=== PATIENT | male | born 1930 | race Caucasian/White ===

== ENCOUNTER 2018-05-19 19:30 | Inpatient (IN) | payer OTHER ==
--- NOTE | 2018-05-19 21:17 | PDOC ---
History of Present Illness <Kathya Gillespie - Last Filed: 05/19/18 21:59> - General History Source: Patient Exam Limitations: No Limitations - History of Present Illness Initial Comments: 05/20/18 07:20 Mr. Mario is a 88 yo M with Pmhx of diabetes mellitus and HTN who presented to the ED s/p fall 3 days ago. His first fall was 3 days ago down "18 stairs" with loss of consciousness, head trauma, and landing on his sacral region. He is unsure of how long he was unconscious for but he subsequently fell later in the day in the bathroom while shaving without loss of consciousness or head trauma, landing on his sacral region. The following day he fell in the bathroom again and was unable to get up until he was discovered by his grandson today. Per the grandson, he states his grandfather was off baseline and more forgetful. He does not recall the events leading to each of the falls. He states he has pain in posterior portion of his head that is dull, non radiating, constant, 8/10, without aggravating or relieving factors. In addition, he complains of pain in the thoracic region T7 region and lower lumbosacral region. Pmhx: DM and HTN Shx: bilateral knee replacement Meds: Does not know medication list. Endorses aspirin 81 mg Allergies: None Social hx: Denies smoking, alcohol intake, and substance abuse. <Serafin Beth - Last Filed: 05/20/18 07:33> - General Chief Complaint: Injury Stated Complaint: S/P FALL Time Seen by Provider: 05/19/18 21:16 Past History <Kathya Gillespie - Last Filed: 05/19/18 21:59> - Suicide/Smoking/Psychosocial Hx Smoking History: Never smoked Have you smoked in the past 12 months: No Information on smoking cessation initiated: No Hx Alcohol Use: No Drug/Substance Use Hx: No <Serafin Beth - Last Filed: 05/20/18 07:33> - Past Medical History Allergies/Adverse Reactions: Allergies Allergy/AdvReac Type Severity Reaction Status Date / Time No Known Allergies Allergy Verified 05/20/18 04:52 Home Medications: Ambulatory Orders NK [No Known Home Medication] 05/20/18 Review of Systems - Review of Systems Able to Perform ROS?: Yes Is the patient limited Welsh proficient: No Constitutional: No: Fever, Night Sweats HEENTM: No: Blurred Vision, Recent change in vision, Ear Pain, Nose Pain, Throat Pain Respiratory: No: Cough, Shortness of Breath Cardiac (ROS): No: Chest Pain, Palpitations ABD/GI: No: Constipated, Diarrhea, Nausea, Rectal Bleeding, Vomiting, Tarry Stools : No: Dysuria, Hematuria Musculoskeletal: Yes: Back Pain Neurological: Yes: Headache. No: Numbness, Paresthesia <Serafin Beth - Last Filed: 05/20/18 07:33> *Physical Exam - Vital Signs Last Vital Signs Temp Pulse Resp BP Pulse Ox 98.2 F 94 H 18 141/83 97 05/19/18 19:30 05/19/18 19:30 05/19/18 19:30 05/19/18 19:30 05/19/18 19:30 <Kathya Gillespie - Last Filed: 05/19/18 21:59> - Vital Signs Last Vital Signs Temp Pulse Resp BP Pulse Ox 98.2 F 94 H 18 141/83 97 05/19/18 19:30 05/19/18 19:30 05/19/18 19:30 05/19/18 19:30 05/19/18 19:30 - Physical Exam General Appearance: Yes: Nourished HEENT: positive: EOMI, LINO, Normal Voice Neck: negative: Tender Respiratory/Chest: positive: Lungs Clear, Normal Breath Sounds Cardiovascular: positive: Regular Rhythm, Regular Rate, S1, S2. negative: Systolic Murmur Gastrointestinal/Abdominal: positive: Normal Bowel Sounds. negative: Tender Musculoskeletal: positive: Normal Inspection. 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 Mario is a 88 yo M with a pmhx of HTN and DM who presented s/p mechanical fall down stairs and falling in bathroom with subsequent head trauma and loss of consciousness. Initial vitals: Initial Vital Signs Temp Pulse Resp BP Pulse Ox 98.2 F 94 H 18 141/83 97 05/19/18 19:30 05/19/18 19:30 05/19/18 19:30 05/19/18 19:30 05/19/18 19:30 Work up: Labs: CBC, trops, CMP, PT/INR, UA, type and screen, EKG, and urine culture Imaging: Chest ct without contrast, thoracic CT without contrast, and head ct without contrast 500 mL of NS given since patient was dry and down for 2 days. Laboratory Results - last 24 hr 05/19/18 05/19/18 05/19/18 23:00 23:00 23:00 WBC 14.9 H RBC 4.82 Hgb 14.4 Hct 44.0 MCV 91.4 MCH 29.9 MCHC 32.7 RDW 13.7 Plt Count 194 MPV 10.3 Absolute Neuts (auto) 12.3 Neutrophils % 82.8 Lymphocytes % 7.9 L Monocytes % 8.5 Eosinophils % 0.2 Basophils % 0.6 Nucleated RBC % 0 PT with INR 11.90 INR 1.05 Sodium Cancelled Potassium Cancelled Chloride Cancelled Carbon Dioxide Cancelled Anion Gap Cancelled BUN Cancelled Creatinine Cancelled Creat Clearance w eGFR Cancelled Random Glucose Cancelled Calcium Cancelled Total Bilirubin Cancelled AST Cancelled ALT Cancelled Alkaline Phosphatase Cancelled Creatine Kinase Cancelled Creatine Kinase Index CK-MB (CK-2) Troponin I Cancelled Total Protein Cancelled Albumin Cancelled Urine Color Urine Appearance Urine pH Ur Specific [place] Urine Protein Urine Glucose (UA) Urine Ketones Urine Blood Urine Nitrite Urine Bilirubin Urine Urobilinogen Ur Leukocyte Esterase Urine WBC (Auto) Urine RBC (Auto) Urine Mucus 05/20/18 05/20/18 05/20/18 00:26 00:26 03:43 WBC RBC Hgb Hct MCV MCH MCHC RDW Plt Count MPV Absolute Neuts (auto) Neutrophils % Lymphocytes % Monocytes % Eosinophils % Basophils % Nucleated RBC % PT with INR INR Sodium 140 Potassium 5.0 Chloride 104 Carbon Dioxide 24 Anion Gap 12 BUN 41 H Creatinine 1.5 H Creat Clearance w eGFR 44.27 Random Glucose 296 H Calcium 9.0 Total Bilirubin 1.0 AST 67 H ALT 39 Alkaline Phosphatase 84 Creatine Kinase 1590 H Cancelled Creatine Kinase Index 0.5 CK-MB (CK-2) 8.86 H Troponin I 0.06 H Cancelled Total Protein 6.8 Albumin 3.3 L Urine Color Yellow Urine Appearance Clear Urine pH 5.0 Ur Specific [place] 1.018 Urine Protein 2+ H Urine Glucose (UA) 3+ H Urine Ketones 1+ H Urine Blood 1+ H Urine Nitrite Negative Urine Bilirubin Negative Urine Urobilinogen Negative Ur Leukocyte Esterase Negative Urine WBC (Auto) 1 Urine RBC (Auto) 1 Urine Mucus Rare Disposition: Given the increase in creatinine kinase and developing MYLES with unknown identifiable cause for the syncopized event, he has been admitted for further evaluation. 05/20/18 07:27 05/20/18 07:30 05/20/18 07:32 <Serafin Beth - Last Filed: 05/20/18 07:33> *DC/Admit/Observation/Transfer <Kathya Gillespie - Last Filed: 05/19/18 21:59> - Discharge Dispostion Decision to Admit order: Yes <Serafin Beth - Last Filed: 05/20/18 07:33> Diagnosis at time of Disposition: Rhabdomyolysis Qualifiers: Rhabdomyolysis type: traumatic Encounter type: initial encounter Qualified Code (s): T79.6XXA - Traumatic ischemia of muscle, initial encounter Fall Qualifiers: Encounter type: initial encounter Qualified Code(s): W19.XXXA - Unspecified fall, initial encounter Syncope Qualifiers: Syncope type: unspecified Qualified Code(s): R55 - Syncope and collapse - Discharge Dispostion Condition at time of disposition: Stable
--- NOTE | 2018-05-19 22:00 | PDOC ---
Attending Attestation - Medical Decision Making 05/20/18 01:33 Documentation prepared by Mariajose Phillips, acting as medical and scientific illustrator for Kathya Gillespie MD. 05/20/18 01:33 EXAM: HEAD CT WITHOUT CONTRAST HISTORY: Head trauma COMPARISON: None. FINDINGS: Involutional changes with moderate ventriculomegaly. Chronic microvascular changes in the cerebral white matter. No hemorrhage. Osseous structures are intact. Individualized dose optimization techniques were used for this CT. THIS DOCUMENT HAS BEEN ELECTRONICALLY SIGNED Jaden Pascal MD 05/20/2018 01:22 EST EXAM: CT thoracic spine without contrast IMAGES:[id number] DATE OF EXAM: 2018-05-20 00:45:53 REASON FOR EXAM: Trauma with loss of consciousness COMPARISON: None Findings: The thoracic spine demonstrates normal alignment. Osteopenia and degenerative changes noted. Vertebral hemangioma at T7. No acute thoracic spine fracture or dislocation. Nonspecific elevation of right hemidiaphragm. Multiple calcified pleural plaques which can be seen with prior asbestos exposure. Mild nonspecific nodular left adrenal thickening. Individualized dose optimization techniques were used for this CT. THIS DOCUMENT HAS BEEN ELECTRONICALLY SIGNED Jaden Lorenz MD 05/20/2018 01:14 EST <Mariajose Phillips - Last Filed: 05/20/18 01:33> - Resident Resident Name: Serafin Beth - ED Attending Attestation I have performed the following: I have examined & evaluated the patient, The case was reviewed & discussed with the resident, I agree w/resident's findings & plan, Exceptions are as noted - HPI HPI: 05/19/18 21:59 88-year-old male brought in by ambulance after being found by a neighbor. Patient reports falling down 18 steps 3 days prior. He doesn't recall why he fell. States he was unable to ambulate due to back pain. PCP is Dr. Eduardo Bearden - Physicial Exam PE: 05/19/18 22:00 Well-nourished, well-developed 88-year-old male with complaint of thoracic and lumbar back pain after falling. He reports LOC Head normocephalic, atraumatic, no scalp scalp laceration, no hematomas eyes asim eomi neck no cervical vertebral tenderness lungs cta b/l -when palpated his spine he had some thoracic and lumbar tenderness and protuberant no rebound, no guarding ext no deformities, able to lift legs off the gurney w no problem, no hip pain skin warm and dry neuro axox3,moving all extremities, no facial droop,no slurred speech - Medical Decision Making 05/20/18 02:24 Patient will be admitted for syncope, trauma, rhabdo First troponin 0.06 <Kathya Gillespie - Last Filed: 05/20/18 02:25> Heart Score/ECG Review - ECG Impressions Comment:: 05/20/18 00:36 Sinus tachycardia with premature atrial complexes with vent rate of 108 bpm, NC interval 152 ms, QRS duration of 128 ms, QT/QTc of 376/503 ms, and P-R-T axes of (65)(-53)(32) Right bundle branch block Left anterior fascicular block Bifascicular block <Mariajose Phillips - Last Filed: 05/20/18 01:33>
[2018-05-19] MEDS ORDERED: SODIUM CHLORIDE 500 ML IV STA (22:06)
[2018-05-19 23:06] LABS: BASO % 0.6 % (0-2.0); EOS % 0.2 % (0-4.5); HEMOGLOBIN 14.4 GM/dL (11.7-16.9); LYMPH % 7.9 % (8-40); MCH 29.9 pg (25.7-33.7); MCHC 32.7 g/dl (32.0-35.9); MEAN CELL VOLUME 91.4 fl (80-96); MEAN PLT VOLUME 10.3 fl (7.5-11.1); MONO % 8.5 % (3.8-10.2); NEUT % 82.8 % (42.8-82.8); PLATELET COUNT 194 K/MM3 (134-434); RBC 4.82 M/mm3 (4.00-5.60); RDW 13.7 % (11.9-15.9); WHITE BLOOD COUNT 14.9 K/mm3 (4.0-10.0)
[2018-05-19 23:17] LABS: INR 1.05 (0.82-1.09); PROTHROMBIN TIME (PATIENT) 11.9 SEC (9.7-13.0)
[2018-05-20 01:01] LABS: ALBUMIN 3.3 g/dl (3.4-5.0); ANION GAP 12 (8-16); BLOOD UREA NITROGEN 41 mg/dL (7-18); CHLORIDE 104 mmol/L (98-107); CO2 24 mmol/L (21-32); CREATININE 1.5 mg/dL (0.7-1.3); GLUCOSE,RANDOM 296 mg/dL (74-106); SGPT/ALT 39 U/L (12-78); SODIUM 140 mmol/L (136-145); TOT PROT 6.8 g/dl (6.4-8.2)
[2018-05-20 01:13] LABS: ALK PHOS 84 U/L (45-117)
[2018-05-20 01:15] LABS: SGOT/AST 67 U/L (15-37)
[2018-05-20] MEDS ORDERED: SODIUM CHLORIDE 500 ML IV STA (02:15)
--- NOTE | 2018-05-20 02:48 | HP ---
CHIEF COMPLAINT: Syncopal Episodes, Unwitnessed Falls, Head Injury PCP: Dr Eduardo Bearden HISTORY OF PRESENT ILLNESS: This is a 88 y/o man with no significant past medical history. Who was BIBA to the ED for multiple syncopal episodes, s/p fall, head injury. patient was found in the floor by a neighbor. Patient reports becoming dizzy and falling, hitting the back of his head when he attempted to go the bathroom at home. He reports having 2 other episodes with LOC. Patient denies fever, chills, cough, SOB, CP, palpitations, AP, N/V/D, constipation, dysuria. ER course was notable for: (1) (2) (3) Recent Travel: None PAST MEDICAL HISTORY: Denies PAST SURGICAL HISTORY: B/L knee replacement Social History: Smoking: Never Alcohol: None Drugs: None Lives alone, Family History: Non-contributory Allergies No Known Allergies Allergy (Verified 05/19/18 20:27) HOME MEDICATIONS: REVIEW OF SYSTEMS CONSTITUTIONAL: Absent: fever, chills, diaphoresis, generalized weakness, malaise, loss of appetite, weight change HEENT: Absent: rhinorrhea, nasal congestion, throat pain, throat swelling, difficulty swallowing, mouth swelling, ear pain, eye pain, visual changes CARDIOVASCULAR: syncope Absent: chest pain, palpitations, irregular heart rate, lightheadedness, peripheral edema RESPIRATORY: Absent: cough, shortness of breath, dyspnea with exertion, orthopnea, wheezing, stridor, hemoptysis GASTROINTESTINAL: Absent: abdominal pain, abdominal distension, nausea, vomiting, diarrhea, constipation, melena, hematochezia GENITOURINARY: Absent: dysuria, frequency, urgency, hesitancy, hematuria, flank pain, genital pain MUSCULOSKELETAL: Absent: myalgia, arthralgia, joint swelling, back pain, neck pain SKIN: Absent: rash, itching, pallor HEMATOLOGIC/IMMUNOLOGIC: Absent: easy bleeding, easy bruising, lymphadenopathy, frequent infections ENDOCRINE: Absent: unexplained weight gain, unexplained weight loss, heat intolerance, cold intolerance NEUROLOGIC: dizziness, unsteady gait, Absent: headache, focal weakness or paresthesias, seizure, mental status changes , bladder or bowel incontinence PSYCHIATRIC: Absent: anxiety, depression, suicidal or homicidal ideation, hallucinations. PHYSICAL EXAMINATION Vital Signs - 24 hr 05/19/18 19:30 Temperature 98.2 F Pulse Rate 94 H Respiratory 18 Rate Blood Pressure 141/83 O2 Sat by Pulse 97 Oximetry (%) GENERAL: Awake, alert, and oriented x2, in no acute distress. HEAD: Normal, with hematoma to mid occiput. EYES: Pupils equal, round and reactive to light, extraocular movements intact, sclera anicteric, conjunctiva clear. No lid lag. EARS, NOSE, THROAT: Ears normal, nares patent, oropharynx clear without exudates. Moist mucous membranes. NECK: Normal range of motion, supple without lymphadenopathy, JVD, or masses. LUNGS: Breath sounds equal, clear to auscultation bilaterally. No wheezes, and no crackles. No accessory muscle use. HEART: Irregular rate and rhythm, normal S1 and S2 without murmur, rub or gallop. ABDOMEN: Soft, nontender, not distended, normoactive bowel sounds, no guarding, no rebound, no masses. No hepatomegaly or splenomegaly. MUSCULOSKELETAL: Normal range of motion at all joints. No bony deformities or tenderness. No CVA tenderness. UPPER EXTREMITIES: 2+ pulses, warm, well-perfused. No cyanosis. No clubbing. No peripheral edema. LOWER EXTREMITIES: 2+ pulses, warm, well-perfused. No calf tenderness. +2 pitting L>R peripheral edema. NEUROLOGICAL: Cranial nerves II-XII intact. Normal speech. Gait not observed. PSYCHIATRIC: Cooperative. Good eye contact. Appropriate mood and affect. SKIN: Warm, dry, normal turgor, no rashes or lesions noted, normal capillary refill. Laboratory Results - last 24 hr 05/19/18 05/19/18 05/19/18 23:00 23:00 23:00 WBC 14.9 H RBC 4.82 Hgb 14.4 Hct 44.0 MCV 91.4 MCH 29.9 MCHC 32.7 RDW 13.7 Plt Count 194 MPV 10.3 Absolute Neuts (auto) 12.3 Neutrophils % 82.8 Lymphocytes % 7.9 L Monocytes % 8.5 Eosinophils % 0.2 Basophils % 0.6 Nucleated RBC % 0 PT with INR 11.90 INR 1.05 Sodium Cancelled Potassium Cancelled Chloride Cancelled Carbon Dioxide Cancelled Anion Gap Cancelled BUN Cancelled Creatinine Cancelled Creat Clearance w eGFR Cancelled Random Glucose Cancelled Calcium Cancelled Total Bilirubin Cancelled AST Cancelled ALT Cancelled Alkaline Phosphatase Cancelled Creatine Kinase Cancelled Creatine Kinase Index CK-MB (CK-2) Troponin I Cancelled Total Protein Cancelled Albumin Cancelled 05/20/18 05/20/18 00:26 00:26 WBC RBC Hgb Hct MCV MCH MCHC RDW Plt Count MPV Absolute Neuts (auto) Neutrophils % Lymphocytes % Monocytes % Eosinophils % Basophils % Nucleated RBC % PT with INR INR Sodium 140 Potassium 5.0 Chloride 104 Carbon Dioxide 24 Anion Gap 12 BUN 41 H Creatinine 1.5 H Creat Clearance w eGFR 44.27 Random Glucose 296 H Calcium 9.0 Total Bilirubin 1.0 AST 67 H ALT 39 Alkaline Phosphatase 84 Creatine Kinase 1590 H Cancelled Creatine Kinase Index 0.5 CK-MB (CK-2) 8.86 H Troponin I 0.06 H Cancelled Total Protein 6.8 Albumin 3.3 L Radiology Studies: 05/20/18 01:33 EXAM: HEAD CT WITHOUT CONTRAST HISTORY: Head trauma COMPARISON: None. FINDINGS: Involutional changes with moderate ventriculomegaly. Chronic microvascular changes in the cerebral white matter. No hemorrhage. Osseous structures are intact. Individualized dose optimization techniques were used for this CT. THIS DOCUMENT HAS BEEN ELECTRONICALLY SIGNED Jaden Pascal MD 05/20/2018 01:22 EST EXAM: CT thoracic spine without contrast IMAGES:[id number] DATE OF EXAM: 2018-05-20 00:45:53 REASON FOR EXAM: Trauma with loss of consciousness COMPARISON: None Findings: The thoracic spine demonstrates normal alignment. Osteopenia and degenerative changes noted. Vertebral hemangioma at T7. No acute thoracic spine fracture or dislocation. Nonspecific elevation of right hemidiaphragm. Multiple calcified pleural plaques which can be seen with prior asbestos exposure. Mild nonspecific nodular left adrenal thickening. Individualized dose optimization techniques were used for this CT. THIS DOCUMENT HAS BEEN ELECTRONICALLY SIGNED Jaden Lorenz MD 05/20/2018 01:14 EST ASSESSMENT/PLAN: 88 y/o man with unknown medical history. Admitted to Telemetry for Syncope, Rhabdomyoloysis, Intractable Back Pain. for further evaluation of their emergent condition. Problem List - Problem (1) Syncope Assessment/Plan: - Likely secondary to arrhythmia vs tumor - Cardiac monitoring - Head CT- no ICH, mass or lesion - Serial Enzymes - Appreciate Cardiology consult - Appreciate Neurology consult - Echo - Carotid duplex - Monitor CBC, BMP - Fall Precautions Code(s): R55 - SYNCOPE AND COLLAPSE Qualifiers: Syncope type: unspecified Qualified Code(s): R55 - Syncope and collapse (2) Fall Assessment/Plan: - unwitnessed at home - Head CT- reviewed - TSP CT- reviewed - Will need PT for gait strengthening - Possible STR or SNF - Appreciate Case Management and social work input- lives alone, would benefit from [employer]CCUPATIONAL [employer] - Fall Precautions - Monitor vitals - Monitor CBC, BMP Code(s): W19.XXXA - UNSPECIFIED FALL, INITIAL ENCOUNTER Qualifiers: Encounter type: initial encounter Qualified Code(s): W19.XXXA - Unspecified fall, initial encounter (3) Rhabdomyolysis Assessment/Plan: - Likely secondary to fall - Continue cardiac monitoring - Serial enzymes - NS bolus given in ED - Continue IVF- monitor for fluid overload - Appreciate Cardiology consult Code(s): M62.82 - RHABDOMYOLYSIS Qualifiers: Rhabdomyolysis type: traumatic Encounter type: initial encounter Qualified Code(s): T79.6XXA - Traumatic ischemia of muscle, initial encounter (4) DVT prophylaxis Assessment/Plan: - OOB - SCDs - Will defer AC until seen by Neuro possible repeat CT or Brain [place]- concern for ICH Code(s): [id number] - Visit type - Emergency Visit Emergency Visit: Yes ED Registration Date: 05/19/18 Care time: The patient presented to the Emergency Department on the above date and was hospitalized for further evaluation of their emergent condition. - New Patient This patient is new to me today: Yes Date on this admission: 05/20/18 - Critical Care Critical Care patient: No Hospitalist Screening - Colonoscopy Questionnaire Colonoscopy Questionnaire: Colonoscopy Questionnaire - Patient: 50 - 75 years old and never had a screening colonoscopy: Unknown History of colon or rectal polyps, or CA: Unknown History of IBD, Crohn's disease or UC: Unknown History of abdominal radiation therapy as a child: Unknown - Relative: 1 with colon or rectal CA, or polyps at age 60 or younger: Unknown Colon or rectal CA diagnosed at age 45 or younger: Unknown Multiple relatives with colon or rectal CA: Unknown - Outcome: Screening Result: Negative Screen
[2018-05-20] MEDS: SODIUM CHLORIDE 1,000 ML IV SCH (03:47)
[2018-05-20 03:53] LABS: URINE APPEARANCE CLEAR; URINE BILIRUBIN NEGATIVE (<2.0 mg/dL); URINE COLOR YELLOW; URINE GLUCOSE (UA) 3+ (NEGATIVE); URINE KETONE 1+ (NEGATIVE); URINE LEUK ESTERASE NEGATIVE (NEGATIVE); URINE NITRITE NEGATIVE (NEGATIVE); URINE UROBILINOGEN NEGATIVE mg/dL (0.2-1.0)
[2018-05-20 04:18] LABS: URINE PROTEIN 2+ (NEGATIVE)
[2018-05-20 04:19] LABS: URINE MUCUS RARE
--- NOTE | 2018-05-20 10:29 | CON.CARD ---
Consult Consult Specialty:: Cardiology Referred by:: Dr. Andrew Ye (patient sees Dr. Eduardo Bearden) Reason for Consultation:: Cardiac evaluation - History of Present Illness Chief Complaint: Post fall, syncope History of Present Illness: Patient is an 88 year old male with underlying history of DM and HTN who presents to ED after a fall with loss of consciousness. He reports landing on his sacral area 3 days ago and also hitting his head. He is unsure how long he was unconscious. He appears to have lost consciousness again while shaving in the bathroom and fell onto the tile hitting his head. He is now admitted for further evaluation. He denies chest pain, shortness of breath or palpitations. He denies paroxysmal nocturnal dyspnea or orhthopnea. He denies nausea, vomiting , diarrhea or abdominal pain. He complains of pain in the sacral area and intermittent headaches, but not too bothersome. - History Source History Provided By: Patient, Medical Record Limitations to Obtaining History: Clinical Condition - Past Medical History Cardio/Vascular: Yes: HTN Endocrine: Yes: Diabetes Mellitus - Past Surgical History Past Surgical History: Yes: Joint Replacement - Alcohol/Substance Use Hx Alcohol Use: Yes (previously) History of Substance Use: reports: None - Smoking History Smoking history: Former smoker Have you smoked in the past 12 months: No Home Medications - Allergies Allergies/Adverse Reactions: Allergies Allergy/AdvReac Type Severity Reaction Status Date / Time No Known Allergies Allergy Verified 05/20/18 04:52 - Home Medications Home Medications: Ambulatory Orders NK [No Known Home Medication] 05/20/18 Review of Systems - Review of Systems Constitutional: denies: Chills, Fever Cardiovascular: denies: Chest Pain, Palpitations, Shortness of Breath Respiratory: denies: Cough, Hemoptysis, Orthopnea, PND, SOB, SOB on Exertion Gastrointestinal: denies: Abdominal Pain, Constipation, Diarrhea, Melena, Nausea , Rectal Bleeding, Vomiting Genitourinary: denies: Dysuria, Hematuria Musculoskeletal: denies: Joint Pain Neurological: reports: Headache, Syncope, Unsteady Gait. denies: Dizziness, Numbness, Seizure, Weakness Vital Signs: Vital Signs Temperature 97.7 F 05/20/18 03:44 Pulse Rate 96 H 05/20/18 07:07 Respiratory Rate 18 05/20/18 07:07 Blood Pressure 138/92 05/20/18 07:07 O2 Sat by Pulse Oximetry (%) 97 05/20/18 07:58 Eyes: Yes: PERRL HENT: Yes: Atraumatic Neck: Yes: Supple Respiratory: Yes: CTA Bilaterally Gastrointestinal: Yes: Normal Bowel Sounds, Soft. No: Tenderness Cardiovascular: Yes: Regular Rate and Rhythm JVD: No Carotid Bruit: No PMI: Non-Displaced Heart Sounds: Yes: S1, S2. No: Gallop Edema: No - Other Data Labs, Other Data: CBC, BMP 05/19/18 23:00 05/20/18 00:26 INR, PTT INR 1.05 (0.82-1.09) 05/19/18 23:00 Troponin, BNP 05/19/18 05/20/18 05/20/18 23:00 00:26 00:26 Troponin I Cancelled 0.06 H Cancelled 05/20/18 06:25 Troponin I 0.04 D Problem List - Problems (1) HTN (hypertension) Code(s): I10 - ESSENTIAL (PRIMARY) HYPERTENSION Qualifiers: Hypertension type: essential hypertension Qualified Code(s): I10 - Essential (primary) hypertension (2) Diabetes mellitus Code(s): E11.9 - TYPE 2 DIABETES MELLITUS WITHOUT COMPLICATIONS (3) Fall Code(s): W19.XXXA - UNSPECIFIED FALL, INITIAL ENCOUNTER Qualifiers: Encounter type: initial encounter Qualified Code(s): W19.XXXA - Unspecified fall, initial encounter (4) Syncope Code(s): R55 - SYNCOPE AND COLLAPSE Qualifiers: Syncope type: unspecified Qualified Code(s): R55 - Syncope and collapse Assessment/Plan 1. Post mechanical fall, no visible injuries, but probable syncope, etiology to be determined 2. HTN 3. DM 4. Organic brain/dementia PLAN: 1. Transthoracic echocardiography to assess LV/RV and valvular function 2. CT chest and thoracic spine noted with interstitial lung disease 3. Carotid Doppler if not done 4. Currently not on any medications. Follow vitals and consider therapy such as ACEI or ARB if tolerated 5. Fall precaution Further plans are to follow Gurvinder Adair MD
--- NOTE | 2018-05-20 12:01 | EKG ---
Test Reason : Blood Pressure : / mmHG Vent. Rate : 108 BPM Atrial Rate : 108 BPM P-R Int : 152 ms QRS Dur : 128 ms QT Int : 376 ms P-R-T Axes : 065 -52 032 degrees QTc Int : 503 ms SINUS TACHYCARDIA WITH PREMATURE ATRIAL COMPLEXES RIGHT BUNDLE BRANCH BLOCK LEFT ANTERIOR FASCICULAR BLOCK BIFASCICULAR BLOCK INFERIOR INFARCT , AGE UNDETERMINED ABNORMAL ECG Confirmed by MD RODO, BIJU ([id number]) on 05/20/2018 12:00:55 PM Referred By: Confirmed By:BIJU KOEHLER MD
--- NOTE | 2018-05-20 17:09 | CON.NEURO ---
Consult Consult Specialty:: Neurology Referred by:: Dr. Haque Reason for Consultation:: Syncope - History of Present Illness Chief Complaint: Syncope History of Present Illness: Patient reports that he was going downstairs to go to the bathroom and while on the way felt dizzy, as if he were going schmidt, and then fell on his buttocks, and then fell backwards, hitting his head. He thinks that he may have briefly passed out after that, but he isn't sure. He denies convulsiions, tongue biting , or incontinence and reported to me that he hadn't and other events since he was young and in the service though other providers documented another syncopal event. He had no focal deficits. - History Source History Provided By: Patient, Medical Record - Past Medical History Cardio/Vascular: Yes: HTN Endocrine: Yes: Diabetes Mellitus - Past Surgical History Past Surgical History: Yes: Joint Replacement - Alcohol/Substance Use Hx Alcohol Use: Yes (previously) History of Substance Use: reports: None - Smoking History Smoking history: Former smoker Have you smoked in the past 12 months: No Home Medications - Allergies Allergies/Adverse Reactions: Allergies Allergy/AdvReac Type Severity Reaction Status Date / Time No Known Allergies Allergy Verified 05/20/18 04:52 - Home Medications Home Medications: Ambulatory Orders NK [No Known Home Medication] 05/20/18 Physical Exam-Neuro Vital Signs: Vital Signs Temperature 98.1 F 05/20/18 15:01 Pulse Rate 92 H 05/20/18 15:01 Respiratory Rate 18 05/20/18 15:01 Blood Pressure 149/84 05/20/18 15:01 O2 Sat by Pulse Oximetry (%) 98 05/20/18 15:01 Constitutional: Yes: Calm Labs: CBC, BMP 05/19/18 23:00 05/20/18 00:26 INR, PTT INR 1.05 (0.82-1.09) 05/19/18 23:00 - Neuro Exam Level Of Consciousness: Yes: Alert, Oriented to Person, Oriented to Place Cranial Nerves II-XII Intact: Yes DTR's: 2+ Left Bicep, 2+ Right Bicep, 2+ Left Tricep, 2+ Right Tricep, 2+ Left Brachioradialis, 2+ Right Brachioradialis, 2+ Left Achilles, 2+ Right Achilles Response to light touch: Normal Motor Strength: 5/5: Left Arm, Right Arm, Left Leg, Right Leg Gait: Deferred Imaging - Results Cat Scan: Report Reviewed, Image Reviewed (white matter ischemic changes) Problem List - Problems (1) DVT prophylaxis Code(s): [id number] - (2) Fall Code(s): W19.XXXA - UNSPECIFIED FALL, INITIAL ENCOUNTER Qualifiers: Encounter type: initial encounter Qualified Code(s): W19.XXXA - Unspecified fall, initial encounter (3) HTN (hypertension) Code(s): I10 - ESSENTIAL (PRIMARY) HYPERTENSION Qualifiers: Hypertension type: essential hypertension Qualified Code(s): I10 - Essential (primary) hypertension (4) Rhabdomyolysis Code(s): M62.82 - RHABDOMYOLYSIS Qualifiers: Rhabdomyolysis type: traumatic Encounter type: initial encounter Qualified Code(s): T79.6XXA - Traumatic ischemia of muscle, initial encounter (5) Syncope Code(s): R55 - SYNCOPE AND COLLAPSE Qualifiers: Syncope type: unspecified Qualified Code(s): R55 - Syncope and collapse Assessment/Plan Syncope, doubt neurogenic. Please call if further questions arise. No contraindication to the use of low dose heparin for DVT prophylaxis.
--- NOTE | 2018-05-20 17:16 | ECHO ---
Name: MADISYN SAIDA Exam:Adult Echocardiogram Study Date: 05/20/2018 08:53 AM Reason For Study: SYNCOPE Height: 72 in Weight: 210 lb BSA: 2.2 m2 MMode/2D Measurements & Calculations IVSd: 1.1 cm Ao root diam: 3.4 cm EDV(Teich): 117.1 ml LVIDd: 5.0 cm LA dimension: 3.2 cm LVPWd: 0.93 cm ACS: 1.7 cm Ao root area: 8.9 cm2 Doppler Measurements & Calculations MV E max nel: 53.0 cm/sec Ao V2 max: 160.0 cm/sec MR max nel: 510.4 cm/sec MV A max nel: 67.8 cm/sec Ao max P.2 mmHg MR max P.0 mmHg MV E/A: 0.78 Ao V2 mean: 127.3 cm/sec Ao mean P.9 mmHg Ao V2 VTI: 30.9 cm TR max nel: 218.5 cm/sec Lat E/e': 7.9 Med E/e': 10.3 TR max P.1 mmHg Procedure A complete two-dimensional transthoracic echocardiogram was performed (2D, M-mode, Doppler and color flow Doppler). Left Ventricle The left ventricular size, thickness and function are normal. Grade I diastolic dysfunction, (abnorma l relaxation pattern). Right Ventricle The right ventricle is normal in size and function. Atria The left atrial size is normal. Right atrial size is normal. Mitral Valve There is mild to moderate mitral valve thickening. There is trace mitral regurgitation. Tricuspid Valve The tricuspid valve is not well visualized, but is grossly normal. There is trace tricuspid regurgita tion. Right ventricular systolic pressure is normal. Aortic Valve There is moderate aortic valve thickening. There is moderate to severe aortic sclerosis.;. No hemodyn amically significant valvular aortic stenosis. Pulmonic Valve The pulmonic valve is not well visualized. Great Vessels The aortic root is normal size. Pericardium/Pleura There is no pericardial effusion. Interpretation Summary The left ventricular size, thickness and function are normal The left atrial size is normal. There is mild to moderate mitral valve thickening. There is trace mitral regurgitation. Grade I diastolic dysfunction, (abnormal relaxation pattern). There is trace tricuspid regurgitation. No hemodynamically significant valvular aortic stenosis. There is moderate to severe aortic sclerosis.; There is no pericardial effusion. MD Homer Shaffer 05/20/2018 05:16 PM
[2018-05-20 23:58] VITALS: BMI 31.1
[2018-05-21] MEDS: SODIUM CHLORIDE 1,000 ML IV SCH ×2 (03:00→14:52)
[2018-05-21] MEDS: LISINOPRIL 5 MG TABLET (FP) PO SCH (09:11)
--- NOTE | 2018-05-21 11:29 | PN ---
Progress Note, Physician Chief Complaint: No further near or true syncope. History of Present Illness: No further near or true syncope, denies chest pain or dyspnea. - Current Medication List Current Medications: Active Medications Sodium Chloride (Normal Saline -) 1,000 mls @ 75 mls/hr IV ASDIR [facility] Last Admin: 05/21/18 03:00 Dose: 75 mls/hr Lisinopril (Prinivil) 5 mg PO DAILY [facility] Last Admin: 05/21/18 09:11 Dose: 5 mg - Objective Vital Signs: Vital Signs Temperature 98 F 05/21/18 09:48 Pulse Rate 98 H 05/21/18 09:48 Respiratory Rate 20 05/21/18 09:48 Blood Pressure 160/80 05/21/18 09:48 O2 Sat by Pulse Oximetry (%) 96 05/21/18 09:00 Constitutional: Yes: No Distress, Calm Neck: Yes: Supple Cardiovascular: Yes: Regular Rate and Rhythm Respiratory: Yes: Regular, Diminished Gastrointestinal: Yes: Normal Bowel Sounds, Soft, Abdomen, Obese Edema: No Labs: CBC, BMP 05/19/18 23:00 05/20/18 00:26 INR, PTT INR 1.05 (0.82-1.09) 05/19/18 23:00 - ....Imaging EKG: Report Reviewed (Tele: [facility]) Problem List - Problems (1) Diabetes mellitus Code(s): E11.9 - TYPE 2 DIABETES MELLITUS WITHOUT COMPLICATIONS Qualifiers: Diabetes mellitus type: type 2 Diabetes mellitus nursing home insulin use: without rodent exterminator use (2) Fall Code(s): W19.XXXA - UNSPECIFIED FALL, INITIAL ENCOUNTER Qualifiers: Encounter type: initial encounter Qualified Code(s): W19.XXXA - Unspecified fall, initial encounter (3) HTN (hypertension) Code(s): I10 - ESSENTIAL (PRIMARY) HYPERTENSION Qualifiers: Hypertension type: essential hypertension Qualified Code(s): I10 - Essential (primary) hypertension (4) Syncope Code(s): R55 - SYNCOPE AND COLLAPSE Qualifiers: Syncope type: vasovagal syncope Qualified Code(s): R55 - Syncope and collapse (5) Hyperlipidemia Code(s): E78.5 - HYPERLIPIDEMIA, UNSPECIFIED Assessment/Plan 05/2018 Transthoracic echocardiography: Normal LV size and fxn, tr MR, TR 05/2018 Carotid Doppler without stenosis 1. Post mechanical fall, vasovagal syncope with typical prodrome 2. HTN 3. DM 4. Hyperlipidemia 5. Rhabdomyolysis resolving PLAN: 1. Lisinopril 5 qd as hemodynamics tolerate for renovascular protection, add lipitor 10 qd now that CPK has decreased, ASA 81 qd 2. OOB to chair, PT for gait training, d/c planning
--- NOTE | 2018-05-21 13:22 | DS ---
Physical Examination Vital Signs: Vital Signs Temperature 98 F 05/21/18 09:48 Pulse Rate 98 H 05/21/18 09:48 Respiratory Rate 20 05/21/18 09:48 Blood Pressure 160/80 05/21/18 09:48 O2 Sat by Pulse Oximetry (%) 96 05/21/18 09:00 Labs: CBC, BMP 05/19/18 23:00 05/20/18 00:26 Discharge Summary Reason For Visit: SYNCOPE, RHABDOMYOLYSIS, FALL Current Active Problems DVT prophylaxis (Acute) Diabetes mellitus (Acute) Fall (Acute) HTN (hypertension) (Acute) Hyperlipidemia (Acute) Rhabdomyolysis (Acute) Syncope (Acute) Condition: Stable - Instructions Referrals: Eduardo Bearden MD [Primary Care Provider] - Disposition: HOME - Home Medications Comprehensive Discharge Medication List: Ambulatory Orders Atorvastatin Ca [Lipitor] 10 mg PO HS #20 tablet 05/21/18 Lisinopril [Prinivil] 5 mg PO DAILY #30 tablet 05/21/18
--- NOTE | 2018-05-21 13:57 | PN ---
Progress Note, Physician Chief Complaint: c/o back pain PT -- unsteady gait - Current Medication List Current Medications: Active Medications Atorvastatin Calcium (Lipitor -) 10 mg PO HS [facility] Sodium Chloride (Normal Saline -) 1,000 mls @ 75 mls/hr IV ASDIR [facility] Last Admin: 05/21/18 03:00 Dose: 75 mls/hr Lisinopril (Prinivil) 5 mg PO DAILY [facility] Last Admin: 05/21/18 09:11 Dose: 5 mg - Objective Vital Signs: Vital Signs Temperature 98 F 05/21/18 09:48 Pulse Rate 98 H 05/21/18 09:48 Respiratory Rate 20 05/21/18 09:48 Blood Pressure 160/80 05/21/18 09:48 O2 Sat by Pulse Oximetry (%) 96 05/21/18 09:00 Constitutional: Yes: No Distress, Calm Cardiovascular: Yes: Regular Rate and Rhythm Respiratory: Yes: CTA Bilaterally Gastrointestinal: Yes: Normal Bowel Sounds, Soft. No: Tenderness Edema: No Labs: CBC, BMP 05/19/18 23:00 05/20/18 00:26 INR, PTT INR 1.05 (0.82-1.09) 05/19/18 23:00 Problem List - Problems (1) Diabetes mellitus Code(s): E11.9 - TYPE 2 DIABETES MELLITUS WITHOUT COMPLICATIONS Qualifiers: Diabetes mellitus type: type 2 Diabetes mellitus noc analyst insulin use: without halfway use (2) Fall Code(s): W19.XXXA - UNSPECIFIED FALL, INITIAL ENCOUNTER Qualifiers: Encounter type: initial encounter Qualified Code(s): W19.XXXA - Unspecified fall, initial encounter (3) HTN (hypertension) Code(s): I10 - ESSENTIAL (PRIMARY) HYPERTENSION Qualifiers: Hypertension type: essential hypertension Qualified Code(s): I10 - Essential (primary) hypertension (4) Hyperlipidemia Code(s): E78.5 - HYPERLIPIDEMIA, UNSPECIFIED (5) Rhabdomyolysis Code(s): M62.82 - RHABDOMYOLYSIS Qualifiers: Rhabdomyolysis type: traumatic Encounter type: initial encounter Qualified Code(s): T79.6XXA - Traumatic ischemia of muscle, initial encounter (6) Syncope Code(s): R55 - SYNCOPE AND COLLAPSE Qualifiers: Syncope type: vasovagal syncope Qualified Code(s): R55 - Syncope and collapse Assessment/Plan PLAN Check A1C as glucose on BMP is high trend CPK PT eval Cardiology and Neurology eval noted iv fluids will need STR
[2018-05-21] MEDS ORDERED: ACETAMINOPHEN 325 MG TABLET (FP) PO PRN (13:58)
[2018-05-21] MEDS: INSULIN SLIDING SCALE (NOVOLOG) 1 VIAL SQ SCH ×2 (17:36→21:36)
[2018-05-21] MEDS: ATORVASTATIN CA 10 MG TABLET (FP) PO SCH (21:34)
[2018-05-21] MEDS ORDERED: INSULIN (NOVOLOG) ASPART 100 UNITS/ML 10ML VIAL ONE (21:36)
[2018-05-22] MEDS: SODIUM CHLORIDE 1,000 ML IV SCH ×2 (06:00→16:49)
[2018-05-22] MEDS: INSULIN SLIDING SCALE (NOVOLOG) 1 VIAL SQ SCH ×4 (06:32→22:04)
[2018-05-22 06:54] LABS: ANION GAP 7 (8-16); BLOOD UREA NITROGEN 26 mg/dL (7-18); CALCIUM 8.4 mg/dL (8.5-10.1); CHLORIDE 105 mmol/L (98-107); CO2 27 mmol/L (21-32); CREATININE 1.2 mg/dL (0.7-1.3); GLUCOSE,RANDOM 200 mg/dL (74-106); POTASSIUM 4.3 mmol/L (3.5-5.1); SODIUM 139 mmol/L (136-145)
[2018-05-22] MEDS: LISINOPRIL 5 MG TABLET (FP) PO SCH (10:30)
--- NOTE | 2018-05-22 11:08 | PN ---
Progress Note, Physician History of Present Illness: No further near or true syncope, denies chest pain or dyspnea, tolerating PT for gait training. - Current Medication List Current Medications: Active Medications Acetaminophen (Tylenol -) 650 mg PO Q6H PRN PRN Reason: FEVER Atorvastatin Calcium (Lipitor -) 10 mg PO HS [facility] Last Admin: 05/21/18 21:34 Dose: 10 mg Sodium Chloride (Normal Saline -) 1,000 mls @ 83 mls/hr IV ASDIR [facility] Last Admin: 05/22/18 06:00 Dose: 83 mls/hr Insulin Aspart (Novolog Vial Sliding Scale -) 1 vial SQ ACHS [facility]; Protocol Last Admin: 05/22/18 06:32 Dose: 4 units Lisinopril (Prinivil) 5 mg PO DAILY [facility] Last Admin: 05/22/18 10:30 Dose: 5 mg - Objective Vital Signs: Vital Signs Temperature 98.1 F 05/22/18 05:45 Pulse Rate 81 05/22/18 05:45 Respiratory Rate 20 05/22/18 05:45 Blood Pressure 176/81 05/22/18 05:45 O2 Sat by Pulse Oximetry (%) 95 05/21/18 21:00 Constitutional: Yes: No Distress, Calm Neck: Yes: Supple Cardiovascular: Yes: Regular Rate and Rhythm Respiratory: Yes: Regular, CTA Bilaterally Gastrointestinal: Yes: Normal Bowel Sounds, Soft Edema: No Labs: CBC, BMP 05/19/18 23:00 05/22/18 05:30 INR, PTT INR 1.05 (0.82-1.09) 05/19/18 23:00 - ....Imaging EKG: Report Reviewed (Tele: SR) Problem List - Problems (1) Diabetes mellitus Code(s): E11.9 - TYPE 2 DIABETES MELLITUS WITHOUT COMPLICATIONS Qualifiers: Diabetes mellitus type: type 2 Diabetes mellitus die maker stamping insulin use: without die maker stamping use (2) Fall Code(s): W19.XXXA - UNSPECIFIED FALL, INITIAL ENCOUNTER Qualifiers: Encounter type: initial encounter Qualified Code(s): W19.XXXA - Unspecified fall, initial encounter (3) HTN (hypertension) Code(s): I10 - ESSENTIAL (PRIMARY) HYPERTENSION Qualifiers: Hypertension type: essential hypertension Qualified Code(s): I10 - Essential (primary) hypertension (4) Syncope Code(s): R55 - SYNCOPE AND COLLAPSE Qualifiers: Syncope type: vasovagal syncope Qualified Code(s): R55 - Syncope and collapse (5) Hyperlipidemia Code(s): E78.5 - HYPERLIPIDEMIA, UNSPECIFIED Assessment/Plan 05/2018 Transthoracic echocardiography: Normal LV size and fxn, tr MR, TR 05/2018 Carotid Doppler without stenosis 1. Post mechanical fall, vasovagal syncope with typical prodrome 2. HTN 3. DM 4. Hyperlipidemia 5. Rhabdomyolysis resolving PLAN: 1. Lisinopril 5 qd as hemodynamics tolerate for renovascular protection, lipitor 10 qd now that CPK has decreased, ASA 81 qd 2. OOB to chair, PT for gait training, d/c planning to STR
--- NOTE | 2018-05-22 12:20 | PN ---
Progress Note, Physician Chief Complaint: PT -- unsteady gait - Current Medication List Current Medications: Active Medications Acetaminophen (Tylenol -) 650 mg PO Q6H PRN PRN Reason: FEVER Atorvastatin Calcium (Lipitor -) 10 mg PO HS [facility] Last Admin: 05/21/18 21:34 Dose: 10 mg Glipizide (Glucotrol -) 5 mg PO DAILY@0700 [facility] Sodium Chloride (Normal Saline -) 1,000 mls @ 83 mls/hr IV ASDIR [facility] Last Admin: 05/22/18 06:00 Dose: 83 mls/hr Insulin Aspart (Novolog Vial Sliding Scale -) 1 vial SQ ACHS [facility]; Protocol Last Admin: 05/22/18 12:14 Dose: 4 units Lisinopril (Prinivil) 5 mg PO DAILY [facility] Last Admin: 05/22/18 10:30 Dose: 5 mg Metformin HCl (Glucophage -) 500 mg PO BID@0700,1630 [facility] - Objective Vital Signs: Vital Signs Temperature 98.1 F 05/22/18 05:45 Pulse Rate 81 05/22/18 05:45 Respiratory Rate 20 05/22/18 05:45 Blood Pressure 176/81 05/22/18 05:45 O2 Sat by Pulse Oximetry (%) 95 05/21/18 21:00 Constitutional: Yes: No Distress, Calm Cardiovascular: Yes: Regular Rate and Rhythm Respiratory: Yes: CTA Bilaterally Gastrointestinal: Yes: Normal Bowel Sounds, Soft, Abdomen, Obese. No: Tenderness Edema: No Labs: CBC, BMP 05/19/18 23:00 05/22/18 05:30 INR, PTT INR 1.05 (0.82-1.09) 05/19/18 23:00 Problem List - Problems (1) Diabetes mellitus Code(s): E11.9 - TYPE 2 DIABETES MELLITUS WITHOUT COMPLICATIONS Qualifiers: Diabetes mellitus type: type 2 Diabetes mellitus solid waste management engineer insulin use: without solid waste management engineer use (2) Fall Code(s): W19.XXXA - UNSPECIFIED FALL, INITIAL ENCOUNTER Qualifiers: Encounter type: initial encounter Qualified Code(s): W19.XXXA - Unspecified fall, initial encounter (3) HTN (hypertension) Code(s): I10 - ESSENTIAL (PRIMARY) HYPERTENSION Qualifiers: Hypertension type: essential hypertension Qualified Code(s): I10 - Essential (primary) hypertension (4) Hyperlipidemia Code(s): E78.5 - HYPERLIPIDEMIA, UNSPECIFIED (5) Rhabdomyolysis Code(s): M62.82 - RHABDOMYOLYSIS Qualifiers: Rhabdomyolysis type: traumatic Encounter type: initial encounter Qualified Code(s): T79.6XXA - Traumatic ischemia of muscle, initial encounter (6) Syncope Code(s): R55 - SYNCOPE AND COLLAPSE Qualifiers: Syncope type: vasovagal syncope Qualified Code(s): R55 - Syncope and collapse Assessment/Plan PLAN Diabetes - pt tells me that his sugars are high- but not on meds will start Metformin , Glipizide Check BGM CPK normal PT eval Cardiology and Neurology eval noted iv fluids will need STR
[2018-05-22] MEDS: metFORMIN HCL 500 MG TABLET (FP) PO SCH (16:46)
[2018-05-22] MEDS ORDERED: INSULIN (NOVOLOG) ASPART 100 UNITS/ML 10ML VIAL ONE ×2 (19:10→22:03)
[2018-05-22] MEDS: ATORVASTATIN CA 10 MG TABLET (FP) PO SCH (21:10)
[2018-05-23] MEDS: INSULIN SLIDING SCALE (NOVOLOG) 1 VIAL SQ SCH (06:24)
[2018-05-23] MEDS: metFORMIN HCL 500 MG TABLET (FP) PO SCH (06:25)
[2018-05-23] MEDS ORDERED: glipiZIDE 5 MG TABLET (FP) PO SCH (07:00)
[2018-05-23] MEDS: LISINOPRIL 5 MG TABLET (FP) PO SCH (09:30)
[2018-05-23 09:35] VITALS: BP 166/88; PULSE 104; TEMP 98
--- NOTE | 2018-05-23 09:57 | PN ---
Progress Note, Physician History of Present Illness: No further near or true syncope, denies chest pain or dyspnea, tolerating PT for gait training. - Current Medication List Current Medications: Active Medications Acetaminophen (Tylenol -) 650 mg PO Q6H PRN PRN Reason: FEVER Atorvastatin Calcium (Lipitor -) 10 mg PO HS [facility] Last Admin: 05/22/18 21:10 Dose: 10 mg Glipizide (Glucotrol -) 5 mg PO DAILY@0700 [facility] Last Admin: 05/23/18 06:25 Dose: 5 mg Sodium Chloride (Normal Saline -) 1,000 mls @ 83 mls/hr IV ASDIR [facility] Last Admin: 05/22/18 16:49 Dose: 83 mls/hr Insulin Aspart (Novolog Vial Sliding Scale -) 1 vial SQ [facility]; Protocol Last Admin: 05/23/18 06:24 Dose: 6 units Lisinopril (Prinivil) 5 mg PO DAILY [facility] Last Admin: 05/23/18 09:30 Dose: 5 mg Metformin HCl (Glucophage -) 500 mg PO BID@0700,1630 [facility] Last Admin: 05/23/18 06:25 Dose: 500 mg - Objective Vital Signs: Vital Signs Temperature 98 F 05/23/18 09:31 Pulse Rate 104 H 05/23/18 09:31 Respiratory Rate 21 05/23/18 09:31 Blood Pressure 166/88 05/23/18 09:31 O2 Sat by Pulse Oximetry (%) 97 05/23/18 09:31 Constitutional: Yes: No Distress, Calm Neck: Yes: Supple Cardiovascular: Yes: Regular Rate and Rhythm Respiratory: Yes: Regular, CTA Bilaterally Gastrointestinal: Yes: Normal Bowel Sounds, Soft Edema: No Labs: CBC, BMP 05/19/18 23:00 05/22/18 05:30 INR, PTT INR 1.05 (0.82-1.09) 05/19/18 23:00 - ....Imaging EKG: Report Reviewed (Tele: NSR) Problem List - Problems (1) Diabetes mellitus Code(s): E11.9 - TYPE 2 DIABETES MELLITUS WITHOUT COMPLICATIONS Qualifiers: Diabetes mellitus type: type 2 Diabetes mellitus fdc insulin use: without dedicated intermodal truck driver use (2) Fall Code(s): W19.XXXA - UNSPECIFIED FALL, INITIAL ENCOUNTER Qualifiers: Encounter type: initial encounter Qualified Code(s): W19.XXXA - Unspecified fall, initial encounter (3) HTN (hypertension) Code(s): I10 - ESSENTIAL (PRIMARY) HYPERTENSION Qualifiers: Hypertension type: essential hypertension Qualified Code(s): I10 - Essential (primary) hypertension (4) Syncope Code(s): R55 - SYNCOPE AND COLLAPSE Qualifiers: Syncope type: vasovagal syncope Qualified Code(s): R55 - Syncope and collapse (5) Hyperlipidemia Code(s): E78.5 - HYPERLIPIDEMIA, UNSPECIFIED Assessment/Plan 05/2018 Transthoracic echocardiography: Normal LV size and fxn, tr MR, TR 05/2018 Carotid Doppler without stenosis 1. Post mechanical fall, vasovagal syncope with typical prodrome 2. HTN 3. DM 4. Hyperlipidemia 5. Rhabdomyolysis resolving PLAN: 1. Lisinopril 5 qd as hemodynamics tolerate for renovascular protection, lipitor 10 qd now that CPK has decreased, ASA 81 qd 2. OOB to chair, PT for gait training, d/c planning to STR
--- NOTE | 2018-05-23 11:11 | DS ---
Physical Examination Vital Signs: Vital Signs Temperature 98 F 05/23/18 09:31 Pulse Rate 104 H 05/23/18 09:31 Respiratory Rate 21 05/23/18 09:31 Blood Pressure 166/88 05/23/18 09:31 O2 Sat by Pulse Oximetry (%) 97 05/23/18 09:31 Findings/Remarks: pt seen/ examined. feels well. Sitting in chair Constitutional: Yes: No Distress, Calm Eyes: Yes: Conjunctiva Clear Neck: Yes: Supple Cardiovascular: Yes: Regular Rate and Rhythm Respiratory: Yes: CTA Bilaterally Gastrointestinal: Yes: Soft Edema: No Neurological: Yes: Alert Psychiatric: Yes: Alert Labs: CBC, BMP 05/19/18 23:00 05/22/18 05:30 Discharge Summary Reason For Visit: SYNCOPE, RHABDOMYOLYSIS, FALL Current Active Problems DVT prophylaxis (Acute) Diabetes mellitus (Acute) Fall (Acute) HTN (hypertension) (Acute) Hyperlipidemia (Acute) Rhabdomyolysis (Acute) Syncope (Acute) Hospital Course: Admission Notes-- This is a 88 y/o man with no significant past medical history. Who was BIBA to the ED for multiple syncopal episodes, s/p fall, head injury. patient was found in the floor by a neighbor. Patient reports becoming dizzy and falling, hitting the back of his head when he attempted to go the bathroom at home. He reports having 2 other episodes with LOC. Patient denies fever, chills, cough, SOB, CP, palpitations, AP, N/V/D, constipation, dysuria. Pt admitted to tele Work up- ve Followed by cardiology/ Neurology Stable for d/c to str Pt was not willing to go but after long discussion in presence of lead case manager - - willing to go. Meds reconcilled Asa added Pt to follow with his pmd after d/c from str Expect short stay at rehab. D/c tme 35 min -- in examining/ documenting and coordating care. Condition: Stable - Instructions Referrals: Eduardo Bearden MD [Primary Care Provider] - Disposition: [facility]ILITY - Home Medications Comprehensive Discharge Medication List: Ambulatory Orders Atorvastatin Ca [Lipitor] 10 mg PO HS #20 tablet 05/21/18 Lisinopril [Prinivil] 5 mg PO DAILY #30 tablet 05/21/18 Acetaminophen [Tylenol .Regular Strength -] 650 mg PO Q6H PRN tablet 05/23/18 Glipizide [Glucotrol -] 5 mg PO DAILY@0700 tablet 05/23/18 Insulin Sliding Scale [Novolog Vial Sliding Scale -] 1 vial SQ ACHS units 05/23 metFORMIN HCL [Glucophage -] 1,000 mg PO BID@0700,1630 tablet 05/23/18 asa 81 mg daily
== END 2018-05-23 14:02 | DRG 558 ==
LOC: JER 19:30 → JERBED 05-20 04:54 → UNDOADMIN 05-20 05:49 → J4W 05-20 22:56
PROVIDERS: ADMIT Internal Medicine; ATTEND Internal Medicine
DX: M62.82 Rhabdomyolysis (principal); I45.2 Bifascicular block; N17.9 Acute kidney failure, unspecified; S09.8XXA Other specified injuries of head, initial encounter; W01.0XXA Fall on same level from slipping, tripping and stumbling without subsequent striking against object, initial encounter; Z91.81 History of falling; Y93.89 Activity, other specified; Y92.012 Bathroom of single-family (private) house as the place of occurrence of the external cause; Y99.8 Other external cause status; R55 Syncope and collapse; I10 Essential (primary) hypertension; E11.9 Type 2 diabetes mellitus without complications; E78.5 Hyperlipidemia, unspecified; Z96.653 Presence of artificial knee joint, bilateral; F03.90 Unspecified dementia, unspecified severity, without behavioral disturbance, psychotic disturbance, mood disturbance, and anxiety; Z79.84 Long term (current) use of oral hypoglycemic drugs; Z79.4 Long term (current) use of insulin
CPT/HCPCS: 36415; 70450-TC; 71045-TC-FY; 71250-TC; 72100-TC-FY; 72128-TC; 80048; 80053; 80061; 81003; 81015; 82550; 82553; 82607; 82962; 83036; 83721; 84443; 84484; 85025; 85610; 86850; 86900; 86901; 87086; 93005; 93010; 93306-TC; 93880-TC; 97116-GP; 97161-GP; 99284-25; J7030

== ENCOUNTER 2018-06-01 11:43 | Inpatient (IN) | payer OTHER ==
--- NOTE | 2018-06-01 12:03 | PDOC ---
History of Present Illness - General Chief Complaint: Blood Sugar Problem Stated Complaint: HIGH BLOOD SUGAR Time Seen by Provider: 06/01/18 12:03 - History of Present Illness Initial Comments: 06/01/18 12:03 Mr. Mario is an 88 yo male w/ pmh of DM, HTN, HLD, afib, and dementia w/ recent admission 05/19-05/23 s/p fall with head injury and rhabdomyolysis who presents from [facility] for evaluation of noted hypotension and hyperglycemia earlier today. Per [place] documentation patient BP was 90's systolic and BGM over 300's; prompting their transfer for evaluation. Mr. Mario also endorses neck and back pain as well as epigastric pain. The patient denies shortness of breath, headache and dizziness. Denies fever, chills, nausea, vomit, diarrhea and constipation. Denies dysuria, frequency, urgency and hematuria. Allergies: NKDA Past History - Past Medical History Allergies/Adverse Reactions: Allergies Allergy/AdvReac Type Severity Reaction Status Date / Time No Known Allergies Allergy Verified 05/20/18 04:52 Home Medications: Ambulatory Orders Atorvastatin Ca [Lipitor] 10 mg PO HS #20 tablet 05/21/18 Lisinopril [Prinivil] 5 mg PO DAILY #30 tablet 05/21/18 Acetaminophen [Tylenol .Regular Strength -] 650 mg PO Q6H PRN tablet 05/23/18 Aspirin 81 mg PO DAILY #30 tab.chew 05/23/18 Glipizide [Glucotrol -] 5 mg PO DAILY@0700 tablet 05/23/18 Insulin Sliding Scale [Novolog Vial Sliding Scale -] 1 vial SQ ACHS units 05/23 metFORMIN HCL [Glucophage -] 1,000 mg PO BID@0700,1630 tablet 05/23/18 COPD: No Diabetes: Yes HTN: Yes - Surgical History Orthopedic Surgery: Yes (knee replacement, bilateral) - Suicide/Smoking/Psychosocial Hx Smoking History: Former smoker Have you smoked in the past 12 months: No Number of Cigarettes Smoked Daily: 0 Hx Alcohol Use: Yes (previously) Drug/Substance Use Hx: No Review of Systems - Review of Systems Comments:: 06/01/18 12:58 GENERAL/CONSTITUTIONAL: No fever or chills. No weakness. HEAD, EYES, EARS, NOSE AND THROAT: No change in vision. No ear pain or discharge. No sore throat. CARDIOVASCULAR: +Low lying chest pain / upper epigastric pain RESPIRATORY: No cough, wheezing, or hemoptysis. GASTROINTESTINAL: No nausea, vomiting, diarrhea or constipation. GENITOURINARY: No dysuria, frequency, or change in urination. MUSCULOSKELETAL: +Nonspecific back/neck pain since last night SKIN: No rash NEUROLOGIC: No headache, vertigo, loss of consciousness, or change in strength/ sensation. ENDOCRINE: No increased thirst. No abnormal weight change HEMATOLOGIC/LYMPHATIC: No anemia, easy bleeding, or history of blood clots. ALLERGIC/IMMUNOLOGIC: No hives or skin allergy. *Physical Exam - Physical Exam Comments: 06/01/18 12:58 GENERAL: Awake, alert, and fully oriented, in no acute distress HEAD: No signs of trauma, normocephalic, atraumatic EYES: PERRLA, EOMI, sclera anicteric, conjunctiva clear ENT: Auricles normal inspection, hearing grossly normal, nares patent, oropharynx clear without exudates. Moist mucosa NECK: Normal ROM, supple, no lymphadenopathy, JVD, or masses LUNGS: No distress, speaks full sentences, clear to auscultation bilaterally HEART: +Heart mildly tachycardic in afib, normal S1 and S2, no murmurs, rubs or gallops, peripheral pulses normal and equal bilaterally. ABDOMEN: +Epigastric tenderness, soft, normoactive bowel sounds. No guarding, no rebound. No masses EXTREMITIES: Normal inspection, Normal range of motion, no edema. No clubbing or cyanosis. NEUROLOGICAL: Cranial nerves II through XII grossly intact. Normal speech, normal gait, no focal sensorimotor deficits SKIN: Warm, Dry, normal turgor, no rashes or lesions noted. ED Treatment Course - LABORATORY CBC & Chemistry Diagram: 06/01/18 12:00 06/01/18 12:00 Medical Decision Making - Medical Decision Making 06/01/18 15:15 Mr. Mario is an 88 yo male w/ pmh as described who presents for evaluation of hypotension and elevated BGM; found to be anemic with GI bleed. Protonix push and IV drip started, patient given 1 unit PRBC's for anemia. Patient discussed with primary and admitted to ICU for care. CT abdomen ordered (w/out contrast as elevated BUN/Cr) for further evaluation. Laboratory Results - last 24 hr 06/01/18 06/01/18 06/01/18 12:00 12:00 12:00 WBC 19.8 H RBC 2.74 L Hgb 8.2 L Hct 25.4 L D MCV 92.7 MCH 29.9 MCHC 32.3 RDW 14.0 Plt Count 206 MPV 10.0 Absolute Neuts (auto) 18.0 Total Counted 100 Neutrophils % 91.2 H Neutrophils % (Manual) 92.0 H Lymphocytes % 4.9 L D Lymphocytes % (Manual) 2.0 L Monocytes % 3.4 L Monocytes % (Manual) 6 Eosinophils % 0.0 D Basophils % 0.5 Nucleated RBC % 0 Platelet Estimate Adequate Platelet Comment No clumping noted PT with INR 11.80 INR 1.04 PTT (Actin FS) 20.3 L VBG pH POC VBG pCO2 POC VBG pO2 Mixed VBG HCO3 Sodium 140 Potassium 4.8 Chloride 111 H Carbon Dioxide 19 L D Anion Gap 10 BUN 84 H D Creatinine 1.7 H Creat Clearance w eGFR 38.32 Random Glucose 289 H D Lactic Acid Calcium 7.4 L Total Bilirubin 0.2 AST 8 L D ALT 19 D Alkaline Phosphatase 43 L D Troponin I 0.04 Total Protein 4.4 L D Albumin 2.3 L Lipase Stool Occult Blood Acetone, Qual Blood Type Antibody Screen Crossmatch 06/01/18 06/01/18 06/01/18 12:00 12:00 12:00 WBC RBC Hgb Hct MCV MCH MCHC RDW Plt Count MPV Absolute Neuts (auto) Total Counted Neutrophils % Neutrophils % (Manual) Lymphocytes % Lymphocytes % (Manual) Monocytes % Monocytes % (Manual) Eosinophils % Basophils % Nucleated RBC % Platelet Estimate Platelet Comment PT with INR INR PTT (Actin FS) VBG pH POC VBG pCO2 POC VBG pO2 Mixed VBG HCO3 Sodium Potassium Chloride Carbon Dioxide Anion Gap BUN Creatinine Creat Clearance w eGFR Random Glucose Lactic Acid 6.1 H* Calcium Total Bilirubin AST ALT Alkaline Phosphatase Troponin I Total Protein Albumin Lipase 94 Stool Occult Blood Positive Acetone, Qual Blood Type Antibody Screen Crossmatch 06/01/18 06/01/18 06/01/18 12:00 12:00 12:35 WBC RBC Hgb Hct MCV MCH MCHC RDW Plt Count MPV Absolute Neuts (auto) Total Counted Neutrophils % Neutrophils % (Manual) Lymphocytes % Lymphocytes % (Manual) Monocytes % Monocytes % (Manual) Eosinophils % Basophils % Nucleated RBC % Platelet Estimate Platelet Comment PT with INR INR PTT (Actin FS) VBG pH 7.31 L POC VBG pCO2 31.3 L POC VBG pO2 43.3 Mixed VBG HCO3 15.3 L Sodium Potassium Chloride Carbon Dioxide Anion Gap BUN Creatinine Creat Clearance w eGFR Random Glucose Lactic Acid Calcium Total Bilirubin AST ALT Alkaline Phosphatase Troponin I Total Protein Albumin Lipase Stool Occult Blood Acetone, Qual Trace Blood Type O POSITIVE Antibody Screen Negative Crossmatch See Detail 06/01/18 14:13 WBC RBC Hgb Hct MCV MCH MCHC RDW Plt Count MPV Absolute Neuts (auto) Total Counted Neutrophils % Neutrophils % (Manual) Lymphocytes % Lymphocytes % (Manual) Monocytes % Monocytes % (Manual) Eosinophils % Basophils % Nucleated RBC % Platelet Estimate Platelet Comment PT with INR INR PTT (Actin FS) VBG pH POC VBG pCO2 POC VBG pO2 Mixed VBG HCO3 Sodium Potassium Chloride Carbon Dioxide Anion Gap BUN Creatinine Creat Clearance w eGFR Random Glucose Lactic Acid 4.9 H* Calcium Total Bilirubin AST ALT Alkaline Phosphatase Troponin I Total Protein Albumin Lipase Stool Occult Blood Acetone, Qual Blood Type Antibody Screen Crossmatch *DC/Admit/Observation/Transfer Diagnosis at time of Disposition: GI bleed Qualifiers: GI bleed type/associated pathology: unspecified gastrointestinal hemorrhage type Qualified Code(s): K92.2 - Gastrointestinal hemorrhage, unspecified Hypotension Qualifiers: Hypotension type: unspecified hypotension type Qualified Code(s): I95.9 - Hypotension, unspecified - Discharge Dispostion Decision to Admit order: Yes - Referrals Referrals: Eduardo Bearden MD [Primary Care Provider] - - Patient Instructions - Post Discharge Activity
--- NOTE | 2018-06-01 12:13 | PDOC ---
Attending Attestation - Resident Resident Name: Dileep Sanders - ED Attending Attestation I have performed the following: I have examined & evaluated the patient, The case was reviewed & discussed with the resident, I agree w/resident's findings & plan, Exceptions are as noted - HPI HPI: 06/01/18 12:37 The patient is a 88 yo M with a significant past medical history of diabetes mellitus, HTN, AFib (not on a/c), hyperlipidemia, rhabdomyolysis, dementia, bilateral knee replacements, and frequent falls, who presents to the ED sfor evaluation of 3-4 days of abdominal burning radiating to his throat with associated nausea and 2-3 days of shortness of breath with associated cough. He reports one epsiode of "dark" diarrhea but denies noticing blood in the stool. He also reports feeling short of breath and lightheaded. He states he has not eaten the past couple of days due to lack of appetite. He reportedly fell down a flight of "18 stairs" about 6 days ago and was evaluated for here (he was here approx 2 weeks ago) and had neg imaging. The patient denies chest pain, and headache. The patient denies fever, chills, vomit, and constipation. The patient denies dysuria, frequency, urgency and hematuria. Shx: bilateral knee replacement Allergies: None Social hx: Denies smoking, alcohol intake, and substance abuse. PCP: Dr. Bearden GENERAL: The patient is awake, alert, and oriented 2, Nontoxic - in no acute distress. pale appearing HEAD: Normocephalic, atraumatic. EYES: extraocular movements intact, sclera anicteric, conjunctiva clear. ENT: Normal voice, Moist mucous membranes. NECK: Normal range of motion, supple LUNGS: Breath sounds equal, clear to auscultation bilaterally. No wheezes, no rhonchi, no rales. HEART: tachycardic ABDOMEN: Soft, mild diffusely tender STOOL: dark stool, EXTREMITIES: Normal range of motion, no edema. No clubbing or cyanosis. No cords, erythema, or tenderness. NEUROLOGICAL: No facial assymetry, Normal speech, PSYCH: Normal mood, normal affect. SKIN: Warm, Dry, normal turgor, - Physicial Exam PE: 06/01/18 15:16 see above - Critical Care Time Total Critical Care Time: 45 Critical Care Statement: The care of this patient involved high complexity decision making to prevent further life threatening deterioration of the patient 's condition and/or to evaluate & treat vital organ system(s) failure or risk of failure. - Medical Decision Making 06/01/18 12:56 pts blood work ntoed for 6 pt hbg drop since 13 days ago (14-->8), guaiace + pt started on protonix, will give 1u of prbcs as pt is feeling lightheaded, bp is borderline and pt is tachycardic suspect GIB Heart Score/ECG Review - ECG Impressions Comment:: 06/01/18 12:55 Twelve-lead EKG was performed and reviewed by me. There is normal sinus rhythm with a rate of 110 RBBB
[2018-06-01] MEDS ORDERED: FAMOTIDINE 20 MG/50 ML IVPB 20 MG in PREMIX 50 IVPB ONE (12:26)
[2018-06-01] MEDS ORDERED: MAG HYDROX/AL HYDROX/SIMETH -MYLANTA- ORAL SUSPENSION PO ONE (12:26)
[2018-06-01 12:33] LABS: BASO % 0.5 % (0-2.0); HEMATOCRIT 25.4 % (35.4-49); HEMOGLOBIN 8.2 GM/dL (11.7-16.9); LYMPH % 4.9 % (8-40); MCH 29.9 pg (25.7-33.7); MCHC 32.3 g/dl (32.0-35.9); MEAN CELL VOLUME 92.7 fl (80-96); MONO % 3.4 % (3.8-10.2); NEUT % 91.2 % (42.8-82.8); PLATELET COUNT 206 K/MM3 (134-434); RBC 2.74 M/mm3 (4.00-5.60); WHITE BLOOD COUNT 19.8 K/mm3 (4.0-10.0)
[2018-06-01] MEDS ORDERED: PANTOPRAZOLE SODIUM 40 MG VIAL IVPUSH ONE (12:47)
[2018-06-01] MEDS ORDERED: PANTOPRAZOLE SODIUM 40 MG VIAL ONE (12:49)
[2018-06-01] MEDS ORDERED: PANTOPRAZOLE SODIUM 40 MG/100 ML BAG IVPB ONE (12:49)
[2018-06-01] MEDS ORDERED: MAG HYDROX/AL HYDROX/SIMETH 30 ML UNIT-DOSE CUP ONE (12:50)
[2018-06-01 12:59] LABS: VENOUS PC02 31.3 mmHg (38-52); VENOUS PH 7.31 (7.32-7.42)
[2018-06-01 13:00] LABS: VENOUS PO2 43.3 mmHg (28-48)
[2018-06-01] MEDS: PANTOPRAZOLE SODIUM 80 MG in SODIUM CHLORIDE 100 ML IVPB SCH ×2 (13:03→23:57)
[2018-06-01 13:14] LABS: INR 1.04 (0.82-1.09); PROTHROMBIN TIME (PATIENT) 11.8 SEC (9.7-13.0)
[2018-06-01 13:16] LABS: ACTIVATED PTT 20.3 SECONDS (25.2-36.5)
[2018-06-01 13:18] LABS: PLATELET ESTIMATE ADEQUATE
[2018-06-01 13:19] LABS: ALBUMIN 2.3 g/dl (3.4-5.0); ANION GAP 10 (8-16); BILIRUBIN,TOTAL 0.2 mg/dL (0.2-1.0); BLOOD UREA NITROGEN 84 mg/dL (7-18); CALCIUM 7.4 mg/dL (8.5-10.1); CHLORIDE 111 mmol/L (98-107); CO2 19 mmol/L (21-32); CREATININE 1.7 mg/dL (0.7-1.3); GLUCOSE,RANDOM 289 mg/dL (74-106); POTASSIUM 4.8 mmol/L (3.5-5.1); SGOT/AST 8 U/L (15-37); SGPT/ALT 19 U/L (12-78); SODIUM 140 mmol/L (136-145); TOT PROT 4.4 g/dl (6.4-8.2)
[2018-06-01 13:21] LABS: ALK PHOS 43 U/L (45-117)
--- NOTE | 2018-06-01 15:10 | CONSULT ---
Consultation: CONSULT SERVICE: ICU resident HISTORY OF PRESENT ILLNESS: 88yo M h/o mild dementia, Afib (only on ASA), HTn, DM and a prior visit due to a fall who presents today due to shortness of breath and lightheadedness. Pt also endorses having this gnawing abdominal pain most notably in his umbilical region. Pt reports he frequently has some burning substernal pain all the way to his neck. This pain is most notable at night when he is laying flat and not correlated with activity during the day or radiation. in addition, pt has had black stools for the past few days, however has never noted overt blood with any bowel movements. Currently pt feels "off" including being lightheaded, however his work of breathing has improved. ER Course: 1) Protonix gtt initiated 2) CTAP to be performed 3) LA of 6.1 4) Drop of Hgb noted from 14.4 (May 17 2018) to now 8.2 today 5) CXR - w/o any acute pathology 5) Hemoccult positive REVIEW OF SYSTEMS: CONSTITUTIONAL: Present: generalized weakness, Absent: fever, chills, diaphoresis, malaise, loss of appetite, weight change HEENT: Absent: rhinorrhea, nasal congestion, throat pain, throat swelling, difficulty swallowing, mouth swelling, ear pain, eye pain, visual changes CARDIOVASCULAR: Absent: chest pain, syncope, palpitations, irregular heart rate, lightheadedness , peripheral edema RESPIRATORY: Present: Shortness of breath Absent: cough, dyspnea with exertion, orthopnea, wheezing, stridor, hemoptysis GASTROINTESTINAL: Present: Abdominal discomfort, melena Absent: abdominal distension, nausea, vomiting, diarrhea, constipation, hematochezia GENITOURINARY: Absent: dysuria, frequency, urgency, hesitancy, hematuria, flank pain MUSCULOSKELETAL: Absent: myalgia, arthralgia, joint swelling, back pain, neck pain SKIN: Absent: rash, itching, pallor HEMATOLOGIC/IMMUNOLOGIC: Absent: easy bleeding, easy bruising, lymphadenopathy, frequent infections NEUROLOGIC: Absent: headache, focal weakness or paresthesias, dizziness, unsteady gait, seizure, mental status changes, bladder or bowel incontinence PHYSICAL EXAMINATION Vital Signs - 24 hr 06/01/18 06/01/18 06/01/18 11:45 12:00 12:30 Temperature 97.9 F Pulse Rate 110 H Pulse Rate [ 109 H 105 H Apical] Respiratory 18 Rate Blood Pressure 115/64 Blood Pressure 111/56 93/60 [Right Arm] O2 Sat by Pulse 97 Oximetry (%) 06/01/18 06/01/18 06/01/18 12:35 12:40 13:20 Temperature Pulse Rate Pulse Rate [ 106 H 60 103 H Apical] Respiratory 18 16 Rate Blood Pressure Blood Pressure 84/59 104/59 120/58 [Right Arm] O2 Sat by Pulse 100 100 Oximetry (%) GENERAL: NAD, awake, alert, oriented x3 HEENT: Nc/At, Conjunctival pallor noted, dry mucosa NECK: Soft, No JVD LUNGS: CTA bilaterally down to bases with good inspiratory effort. No wheezes, and no crackles. No accessory muscle use. On 2LNC. HEART: Regular rate and rhythm, normal S1 and S2 without murmur, rub or gallop. ABDOMEN: Soft, nondistended, tympanitic, tenderness to deep palpation LUQ and periumbilical region, normoactive BS, no guarding, no rebound, no overt masses RECTAL: Deferred to ER physician's examination MUSCULOSKELETAL: No CVA tenderness. No joint effusions noted in knees or joints of hands. No sacral decubiti EXTREMITIES: 2+ DP pulses, warm, well-perfused. No cyanosis. Cap refill <2 seconds. No peripheral edema. NEUROLOGICAL: Nonfocal exam. Normal speech, gait not observed PSYCHIATRIC: Cooperative. Good eye contact. Appropriate mood and affect. SKIN: Warm, dry, no rashes or lesions noted. Laboratory Results - last 24 hr 06/01/18 06/01/18 06/01/18 12:00 12:00 12:00 WBC 19.8 H RBC 2.74 L Hgb 8.2 L Hct 25.4 L D MCV 92.7 MCH 29.9 MCHC 32.3 RDW 14.0 Plt Count 206 MPV 10.0 Absolute Neuts (auto) 18.0 Total Counted 100 Neutrophils % 91.2 H Neutrophils % (Manual) 92.0 H Lymphocytes % 4.9 L D Lymphocytes % (Manual) 2.0 L Monocytes % 3.4 L Monocytes % (Manual) 6 Eosinophils % 0.0 D Basophils % 0.5 Nucleated RBC % 0 Platelet Estimate Adequate Platelet Comment No clumping noted PT with INR 11.80 INR 1.04 PTT (Actin FS) 20.3 L VBG pH POC VBG pCO2 POC VBG pO2 Mixed VBG HCO3 Sodium 140 Potassium 4.8 Chloride 111 H Carbon Dioxide 19 L D Anion Gap 10 BUN 84 H D Creatinine 1.7 H Creat Clearance w eGFR 38.32 Random Glucose 289 H D Lactic Acid Calcium 7.4 L Total Bilirubin 0.2 AST 8 L D ALT 19 D Alkaline Phosphatase 43 L D Troponin I 0.04 Total Protein 4.4 L D Albumin 2.3 L Lipase Stool Occult Blood Acetone, Qual Blood Type Antibody Screen Crossmatch 06/01/18 06/01/18 06/01/18 12:00 12:00 12:00 WBC RBC Hgb Hct MCV MCH MCHC RDW Plt Count MPV Absolute Neuts (auto) Total Counted Neutrophils % Neutrophils % (Manual) Lymphocytes % Lymphocytes % (Manual) Monocytes % Monocytes % (Manual) Eosinophils % Basophils % Nucleated RBC % Platelet Estimate Platelet Comment PT with INR INR PTT (Actin FS) VBG pH POC VBG pCO2 POC VBG pO2 Mixed VBG HCO3 Sodium Potassium Chloride Carbon Dioxide Anion Gap BUN Creatinine Creat Clearance w eGFR Random Glucose Lactic Acid 6.1 H* Calcium Total Bilirubin AST ALT Alkaline Phosphatase Troponin I Total Protein Albumin Lipase 94 Stool Occult Blood Positive Acetone, Qual Blood Type Antibody Screen Crossmatch 06/01/18 06/01/18 06/01/18 12:00 12:00 12:35 WBC RBC Hgb Hct MCV MCH MCHC RDW Plt Count MPV Absolute Neuts (auto) Total Counted Neutrophils % Neutrophils % (Manual) Lymphocytes % Lymphocytes % (Manual) Monocytes % Monocytes % (Manual) Eosinophils % Basophils % Nucleated RBC % Platelet Estimate Platelet Comment PT with INR INR PTT (Actin FS) VBG pH 7.31 L POC VBG pCO2 31.3 L POC VBG pO2 43.3 Mixed VBG HCO3 15.3 L Sodium Potassium Chloride Carbon Dioxide Anion Gap BUN Creatinine Creat Clearance w eGFR Random Glucose Lactic Acid Calcium Total Bilirubin AST ALT Alkaline Phosphatase Troponin I Total Protein Albumin Lipase Stool Occult Blood Acetone, Qual Trace Blood Type O POSITIVE Antibody Screen Negative Crossmatch See Detail 06/01/18 14:13 WBC RBC Hgb Hct MCV MCH MCHC RDW Plt Count MPV Absolute Neuts (auto) Total Counted Neutrophils % Neutrophils % (Manual) Lymphocytes % Lymphocytes % (Manual) Monocytes % Monocytes % (Manual) Eosinophils % Basophils % Nucleated RBC % Platelet Estimate Platelet Comment PT with INR INR PTT (Actin FS) VBG pH POC VBG pCO2 POC VBG pO2 Mixed VBG HCO3 Sodium Potassium Chloride Carbon Dioxide Anion Gap BUN Creatinine Creat Clearance w eGFR Random Glucose Lactic Acid 4.9 H* Calcium Total Bilirubin AST ALT Alkaline Phosphatase Troponin I Total Protein Albumin Lipase Stool Occult Blood Acetone, Qual Blood Type Antibody Screen Crossmatch Active Medications Generic Name Dose Route Start Last Admin Trade Name Prashant PRN Reason Stop Dose Admin Pantoprazole Sodium 80 mg/ 100 mls @ 10 mls/hr 06/01/18 13:00 06/01/18 13:03 Sodium Chloride IVPB 10 mls/hr Q10H ZORA Administration 8 MG/HR ASSESSMENT/PLAN: Neuro: Pt neurologically at baseline Respiratory: Not in any acute distress. Maintain SpO2 >90% Cardiac: Atrial fibrillation history --Currently in sinus rhythm --Monitor telemetry --Not on any rate control? --Only takes ASA at home --Previous echo 05/20/18 showing Grade 1 diastolic dysfunction with trace MR/TR Demand ischemia --Troponin 0.04 currently, but expect to increase due to hypoperfusion --Would likely trend one more level and if similar or decrease can stop trending GI: Upper GI bleed --Likely suspect given symptoms and ASA use --Drop from 14.4 to 8.2 in this month; elevated BUN to 84 --Consult GI: will likely need endoscopy/colonoscopy to locate source --CTAP to be performed to r/o any large collection --May have to consult surgery if pt is seen to have large collection of suspected blood. --Continue Protonix gtt --Transfuse 1U PRBC due to being symptomatic --Monitor H/H: Rpt at 6pm Renal: MYLES --Likely due to hypoperfusion of kidneys --Expect to improve with increased fluid/blood --BUN:Cr ration supports prerenal etiology --Hold ACEi right now ID: Leukocytosis --Can possibly be from leukemoid rxn vs. infection given abdominal pain --BCx and Urine Cx drawn --UA pending --Afebrile currently --Monitor off ABX currently unless fevers surface FEN: Fluids: Will use LR @75cc/hr after 1UPRBC transfused for hemodynamic support Electrolyte abnormalities: None currently Nutrition: Clear liquid diet; NPO after midnight PPX: DVt - SCD's GI - Protonix gtt Dispo: Will monitor Ned Bernalsalud, DO - IM PGY-2 Visit type - Emergency Visit Emergency Visit: No - New Patient This patient is new to me today: No - Critical Care Critical Care patient: Yes Total Critical Care Time (in minutes): 35 Critical Care Statement: The care of this patient involved high complexity decision making to prevent further life threatening deterioration of the patient 's condition and/or to evaluate & treat vital organ system(s) failure or risk of failure.
--- NOTE | 2018-06-01 15:20 | EKG ---
Test Reason : Blood Pressure : / mmHG Vent. Rate : 110 BPM Atrial Rate : 110 BPM P-R Int : 156 ms QRS Dur : 132 ms QT Int : 382 ms P-R-T Axes : 060 003 042 degrees QTc Int : 516 ms SINUS TACHYCARDIA RIGHT BUNDLE BRANCH BLOCK ABNORMAL ECG WHEN COMPARED WITH ECG OF 20-MAY-2018 00:16, PREMATURE ATRIAL COMPLEXES ARE NO LONGER PRESENT LEFT ANTERIOR FASCICULAR BLOCK IS NO LONGER PRESENT CRITERIA FOR INFERIOR INFARCT ARE NO LONGER PRESENT Confirmed by JERRI MIGULE MD ([id number]) on 06/01/2018 3:20:15 PM Referred By: Confirmed By:JERRI MIGUEL MD
[2018-06-01 16:26] LABS: URINE APPEARANCE CLEAR; URINE BILIRUBIN NEGATIVE (<2.0 mg/dL); URINE COLOR STRAW; URINE GLUCOSE (UA) 1+ (NEGATIVE); URINE KETONE TRACE (NEGATIVE); URINE LEUK ESTERASE NEGATIVE (NEGATIVE); URINE NITRITE NEGATIVE (NEGATIVE); URINE PROTEIN NEGATIVE (NEGATIVE); URINE UROBILINOGEN NEGATIVE mg/dL (0.2-1.0)
--- NOTE | 2018-06-01 17:09 | CON.GI ---
Consult Consult Specialty:: GI Reason for Consultation:: GI bleeding, Anemia - History of Present Illness History of Present Illness: Chart reviewed. Events noted. Per initial intake: 88yo M h/o mild dementia, Afib (only on ASA), HTn, DM and a prior visit due to a fall who presents today due to shortness of breath and lightheadedness. Pt also endorses having this gnawing abdominal pain most notably in his umbilical region. Pt reports he frequently has some burning substernal pain all the way to his neck. This pain is most notable at night when he is laying flat and not correlated with activity during the day or radiation. in addition, pt has had black stools for the past few days, however has never noted overt blood with any bowel movements. Currently pt feels "off" including being lightheaded, however his work of breathing has improved. ER Course: 1) Protonix gtt initiated 2) CTAP to be performed 3) LA of 6.1 4) Drop of Hgb noted from 14.4 (May 17 2018) to now 8.2 today 5) CXR - w/o any acute pathology 5) Hemoccult positive The pt reports no history of overt GI bleeding, or GI-related issues in the past. Never had EGD, or colonsocopy. Reports dark stools for the last [address] - diverticulosis. Normocytic normochromic anemia BUN/Cr elevated Heme positive stools - History Source History Provided By: Patient, Medical Record - Past Medical History Cardio/Vascular: Yes: HTN Endocrine: Yes: Diabetes Mellitus - Past Surgical History Past Surgical History: Yes: Joint Replacement - Alcohol/Substance Use Hx Alcohol Use: Yes (previously) History of Substance Use: reports: None - Smoking History Smoking history: Former smoker Have you smoked in the past 12 months: No Aproximately how many cigarettes per day: 0 If you are a former smoker, when did you quit?: 0 Home Medications - Allergies Allergies/Adverse Reactions: Allergies Allergy/AdvReac Type Severity Reaction Status Date / Time No Known Allergies Allergy Verified 05/20/18 04:52 - Home Medications Home Medications: Ambulatory Orders Atorvastatin Ca [Lipitor] 10 mg PO HS #20 tablet 05/21/18 Lisinopril [Prinivil] 5 mg PO DAILY #30 tablet 05/21/18 Aspirin 81 mg PO DAILY #30 tab.chew 05/23/18 Glipizide [Glucotrol -] 5 mg PO DAILY@0700 tablet 05/23/18 metFORMIN HCL [Glucophage -] 1,000 mg PO BID@0700,1630 tablet 05/23/18 Acetaminophen [Tylenol .Regular Strength -] 650 mg PO Q6H PRN 06/01/18 Benzocaine/Menthol [Cepacol Sore Throat Lozenge] 1 each MM ASDIR 06/01/18 Cholecalciferol (Vitamin D3) [Vitamin D3] 5,000 unit PO DAILY 06/01/18 Mag Hydrox/Al Hydrox/Simeth [Mylanta Oral Suspension -] 30 ml PO Q4HWA PRN 06/01 Multivit-Min/Iron Fum/Folic AC [Izdsx-Bfrefrj-Ofqrwzja Tablet] 1 each PO DAILY 06/01/18 Nystatin Cream [Mycostatin] 1 applic TP BID 06/01/18 Triamcinolone 0.1% Cream [Aristocort] 0 gm TP BID 06/01/18 Family Disease History - Family Disease History Family History: Unremarkable Review of Systems Findings/Remarks: as per HPI, H&P, ED Physical Exam-GI Vital Signs: Vital Signs Temperature 97.5 F L 06/01/18 16:24 Pulse Rate 106 H 06/01/18 16:24 Respiratory Rate 20 06/01/18 16:24 Blood Pressure 129/63 06/01/18 16:24 O2 Sat by Pulse Oximetry (%) 99 06/01/18 16:46 Constitutional: Yes: Well Nourished, No Distress, Calm Eyes: Yes: Conjunctiva Clear HENT: Yes: Atraumatic Neck: Yes: Supple Cardiovascular: Yes: Regular Rate and Rhythm Respiratory: Yes: Regular Gastrointestinal Inspection: No: Ascites, Distention ...Auscultate: Yes: Normoactive Bowel Sounds ...Palpate: No: Firm/Rigid, Guarding, Tenderness, Tenderness, Epigastium, Tenderness, Rebound Neurological: Yes: Alert Labs: CBC, BMP 06/01/18 12:00 06/01/18 12:00 INR, PTT INR 1.04 (0.82-1.09) 06/01/18 12:00 Laboratory Last Values WBC 19.8 K/mm3 (4.0-10.0) H 06/01/18 12:00 RBC 2.74 M/mm3 (4.00-5.60) L 06/01/18 12:00 Hgb 8.2 GM/dL (11.7-16.9) L 06/01/18 12:00 Hct 25.4 % (35.4-49) L D 06/01/18 12:00 MCV 92.7 fl (80-96) 06/01/18 12:00 MCH 29.9 pg (25.7-33.7) 06/01/18 12:00 MCHC 32.3 g/dl (32.0-35.9) 06/01/18 12:00 RDW 14.0 % (11.9-15.9) 06/01/18 12:00 Plt Count 206 K/MM3 (134-434) 06/01/18 12:00 MPV 10.0 fl (7.5-11.1) 06/01/18 12:00 Absolute Neuts (auto) 18.0 # 06/01/18 12:00 Total Counted 100 06/01/18 12:00 Neutrophils % 91.2 % (42.8-82.8) H 06/01/18 12:00 Neutrophils % (Manual) 92.0 % (42.8-82.8) H 06/01/18 12:00 Lymphocytes % 4.9 % (8-40) L D 06/01/18 12:00 Lymphocytes % (Manual) 2.0 % (8-40) L 06/01/18 12:00 Monocytes % 3.4 % (3.8-10.2) L 06/01/18 12:00 Monocytes % (Manual) 6 % (3.8-10.2) 06/01/18 12:00 Eosinophils % 0.0 % (0-4.5) D 06/01/18 12:00 Basophils % 0.5 % (0-2.0) 06/01/18 12:00 Nucleated RBC % 0 % (0-0) 06/01/18 12:00 Platelet Estimate Adequate 06/01/18 12:00 Platelet Comment No clumping noted 06/01/18 12:00 PT with INR 11.80 SEC (9.7-13.0) 06/01/18 12:00 INR 1.04 (0.82-1.09) 06/01/18 12:00 PTT (Actin FS) 20.3 SECONDS (25.2-36.5) L 06/01/18 12:00 VBG pH 7.31 (7.32-7.42) L 06/01/18 12:35 POC VBG pCO2 31.3 mmHg (38-52) L 06/01/18 12:35 POC VBG pO2 43.3 mmHg (28-48) 06/01/18 12:35 Mixed VBG HCO3 15.3 meq/L (19-25) L 06/01/18 12:35 Sodium 140 mmol/L (136-145) 06/01/18 12:00 Potassium 4.8 mmol/L (3.5-5.1) 06/01/18 12:00 Chloride 111 mmol/L (98-107) H 06/01/18 12:00 Carbon Dioxide 19 mmol/L (21-32) L D 06/01/18 12:00 Anion Gap 10 (8-16) 06/01/18 12:00 BUN 84 mg/dL (7-18) H D 06/01/18 12:00 Creatinine 1.7 mg/dL (0.7-1.3) H 06/01/18 12:00 Creat Clearance w eGFR 38.32 (>60) 06/01/18 12:00 Random Glucose 289 mg/dL (74-106) H D 06/01/18 12:00 Lactic Acid 4.9 mmol/L (0.0-2.0) H* 06/01/18 14:13 Calcium 7.4 mg/dL (8.5-10.1) L 06/01/18 12:00 Total Bilirubin 0.2 mg/dL (0.2-1.0) 06/01/18 12:00 AST 8 U/L (15-37) L D 06/01/18 12:00 ALT 19 U/L (12-78) D 06/01/18 12:00 Alkaline Phosphatase 43 U/L (45-117) L D 06/01/18 12:00 Troponin I 0.04 ng/ml (0.00-0.05) 06/01/18 12:00 Total Protein 4.4 g/dl (6.4-8.2) L D 06/01/18 12:00 Albumin 2.3 g/dl (3.4-5.0) L 06/01/18 12:00 Lipase 94 U/L (73-393) 06/01/18 12:00 Urine Color Straw 06/01/18 14:50 Urine Appearance Clear 06/01/18 14:50 Urine pH 5.0 (5.0-8.0) 06/01/18 14:50 Ur Specific [place] 1.017 (1.001-1.035) 06/01/18 14:50 Urine Protein Negative (NEGATIVE) 06/01/18 14:50 Urine Glucose (UA) 1+ (NEGATIVE) H 06/01/18 14:50 Urine Ketones Trace (NEGATIVE) H 06/01/18 14:50 Urine Blood Negative (NEGATIVE) 06/01/18 14:50 Urine Nitrite Negative (NEGATIVE) 06/01/18 14:50 Urine Bilirubin Negative (<2.0 mg/dL) 06/01/18 14:50 Urine Urobilinogen Negative mg/dL (0.2-1.0) 06/01/18 14:50 Ur Leukocyte Esterase Negative (NEGATIVE) 06/01/18 14:50 Stool Occult Blood Positive (NEGATIVE) 06/01/18 12:00 Acetone, Qual Trace (NEGATIVE) 06/01/18 12:00 Blood Type O POSITIVE 06/01/18 12:00 Antibody Screen Negative 06/01/18 12:00 Crossmatch See Detail 06/01/18 12:00 Imaging - Results Cat Scan: Report Reviewed Assessment/Plan A 88M with the above medical history and symptomatic anemia due to significant drop on HGB over relatively short period of time. There is no stigmata of ongoing, significant GI bleeding at this time. The pt never had EGD, or colonoscopy. Agree with ICU monitoring and the management. EGD and colonoscopy were discussed with the patient in detail and he agreed to proceed. Clear liquid diet today, NPO after midnight. CBC, CMP, PT/INR in AM. Discussed with the ICU team.
[2018-06-01] MEDS ORDERED: BISACODYL 5 MG TABLET.DR (FP) PO ONE (18:00)
[2018-06-01] MEDS ORDERED: PEG 3350/NA SULF BICARB CL/KCL 4000 ML SOLN.RECON PO ONE (18:00)
[2018-06-01 19:57] LABS: HEMATOCRIT 25.2 % (35.4-49); HEMOGLOBIN 8.2 GM/dL (11.7-16.9); MCH 29.4 pg (25.7-33.7); MCHC 32.4 g/dl (32.0-35.9); MEAN CELL VOLUME 90.8 fl (80-96); MEAN PLT VOLUME 10.4 fl (7.5-11.1); PLATELET COUNT 169 K/MM3 (134-434); RBC 2.78 M/mm3 (4.00-5.60); RDW 14.8 % (11.9-15.9); WHITE BLOOD COUNT 17.7 K/mm3 (4.0-10.0)
--- NOTE | 2018-06-01 20:56 | HOSP ---
Physical Examination Vital Signs: Vital Signs Temperature 97.5 F L 06/01/18 16:24 Pulse Rate 105 H 06/01/18 17:20 Respiratory Rate 20 06/01/18 17:20 Blood Pressure 137/60 06/01/18 17:20 O2 Sat by Pulse Oximetry (%) 99 06/01/18 16:46 Labs: CBC, BMP 06/01/18 19:40 06/01/18 12:00 Hospitalist Encounter Assessment: F/u on CBC. Hb remained unchanged despite PRBCs. Will order another unit. Repeat CBC to follow. Visit type - Emergency Visit Emergency Visit: No - New Patient This patient is new to me today: Yes Date on this admission: 06/01/18 - Critical Care Critical Care patient: No
[2018-06-02] MEDS ORDERED: HALOPERIDOL 1 MG TABLET (FP) PO ONE (01:15)
[2018-06-02] MEDS ORDERED: HALOPERIDOL LACTATE 5 MG/ML ONE (01:45)
[2018-06-02 06:04] LABS: BASO % 0.5 % (0-2.0); EOS % 0.2 % (0-4.5); HEMATOCRIT 24.6 % (35.4-49); HEMOGLOBIN 8.3 GM/dL (11.7-16.9); LYMPH % 11.1 % (8-40); MCH 30.1 pg (25.7-33.7); MCHC 33.6 g/dl (32.0-35.9); MEAN CELL VOLUME 89.5 fl (80-96); MEAN PLT VOLUME 10.2 fl (7.5-11.1); MONO % 8.1 % (3.8-10.2); NEUT % 80.1 % (42.8-82.8); PLATELET COUNT 184 K/MM3 (134-434); RBC 2.74 M/mm3 (4.00-5.60); RDW 14.8 % (11.9-15.9)
[2018-06-02 06:36] LABS: INR 1.04 (0.82-1.09); PROTHROMBIN TIME (PATIENT) 11.7 SEC (9.7-13.0)
[2018-06-02 06:37] LABS: CALCIUM 8.5 mg/dL (8.5-10.1); CHLORIDE 105 mmol/L (98-107); POTASSIUM 4.6 mmol/L (3.5-5.1); SODIUM 138 mmol/L (136-145)
[2018-06-02 06:42] LABS: ALBUMIN 2.8 g/dl (3.4-5.0); ALK PHOS 48 U/L (45-117); ANION GAP 6 (8-16); BILIRUBIN,TOTAL 0.6 mg/dL (0.2-1.0); BLOOD UREA NITROGEN 88 mg/dL (7-18); CO2 27 mmol/L (21-32); CREATININE 1.9 mg/dL (0.7-1.3); MAGNESIUM 2.8 mg/dL (1.8-2.4); PHOSPHOROUS 2.1 mg/dL (2.5-4.9); SGOT/AST 11 U/L (15-37); SGPT/ALT 21 U/L (12-78); TOT PROT 5.2 g/dl (6.4-8.2)
[2018-06-02 06:45] LABS: GLUCOSE,RANDOM 330 mg/dL (74-106)
[2018-06-02] MEDS ORDERED: INSULIN SLIDING SCALE (NOVOLOG) 1 VIAL SQ SCH (07:00)
[2018-06-02] MEDS ORDERED: PT OWN MED DRAWER 7, Y5N ONE (10:49)
[2018-06-02] MEDS ORDERED: ACETAMINOPHEN 1000 MG/100 ML VIAL (NON FORMULARY) IVPB PRN (11:25)
[2018-06-02] MEDS: PANTOPRAZOLE SODIUM 80 MG in SODIUM CHLORIDE 100 ML IVPB SCH ×2 (11:36→19:44)
--- NOTE | 2018-06-02 11:43 | HP ---
Admitting History and Physical - Primary Care Physician PCP: Andrew Ye - Admission History of Present Illness: Pt seen/ examined in icu Chart reviewed Case discussed with icu team/ resident. In summary- 88yo M h/o mild dementia, Afib (only on ASA), HTn, DM and a prior visit due to a fall who presents today due to shortness of breath and lightheadedness. Pt also endorses having this gnawing abdominal pain most notably in his umbilical region. Pt reports he frequently has some burning substernal pain all the way to his neck. This pain is most notable at night when he is laying flat and not correlated with activity during the day or radiation. in addition, pt has had black stools for the past few days, however has never noted overt blood with any bowel movements. Currently pt feels "off" including being lightheaded, however his work of breathing has improved. ER Course: 1) Protonix gtt initiated 2) CTAP to be performed 3) LA of 6.1 4) Drop of Hgb noted from 14.4 (May 17 2018) to now 8.2 today 5) CXR - w/o any acute pathology 5) Hemoccult positive Pt admitted to icu on protonix drip for endo today pt as such alert/ awake History Source: Patient, Medical Record - Past Medical History Cardiovascular: Yes: HTN Endocrine: Yes: Diabetes Mellitus - Past Surgical History Past Surgical History: Yes: Joint Replacement - Smoking History Smoking history: Former smoker Have you smoked in the past 12 months: No Aproximately how many cigarettes per day: 0 If you are a former smoker, when did you quit?: 0 - Alcohol/Substance Use Hx Alcohol Use: Yes (previously) History of Substance Use: reports: None Home Medications - Allergies Allergies/Adverse Reactions: Allergies Allergy/AdvReac Type Severity Reaction Status Date / Time No Known Allergies Allergy Verified 05/20/18 04:52 - Home Medications Home Medications: Ambulatory Orders Atorvastatin Ca [Lipitor] 10 mg PO HS #20 tablet 05/21/18 Lisinopril [Prinivil] 5 mg PO DAILY #30 tablet 05/21/18 Aspirin 81 mg PO DAILY #30 tab.chew 05/23/18 Glipizide [Glucotrol -] 5 mg PO DAILY@0700 tablet 05/23/18 metFORMIN HCL [Glucophage -] 1,000 mg PO BID@0700,1630 tablet 05/23/18 Acetaminophen [Tylenol .Regular Strength -] 650 mg PO Q6H PRN 06/01/18 Benzocaine/Menthol [Cepacol Sore Throat Lozenge] 1 each MM ASDIR 06/01/18 Cholecalciferol (Vitamin D3) [Vitamin D3] 5,000 unit PO DAILY 06/01/18 Mag Hydrox/Al Hydrox/Simeth [Mylanta Oral Suspension -] 30 ml PO Q4HWA PRN 06/01 Multivit-Min/Iron Fum/Folic AC [Ikczm-Qdpbcds-Buihcocb Tablet] 1 each PO DAILY 06/01/18 Nystatin Cream [Mycostatin] 1 applic TP BID 06/01/18 Triamcinolone 0.1% Cream [Aristocort] 0 gm TP BID 06/01/18 Review of Systems Unable to obtain ROS, reason: see [place] Physical Examination Vital Signs: Vital Signs Temperature 9804 F H 06/02/18 06:00 Pulse Rate 96 H 06/02/18 08:00 Respiratory Rate 18 06/02/18 08:00 Blood Pressure 107/67 06/02/18 08:00 O2 Sat by Pulse Oximetry (%) 100 06/01/18 21:00 Constitutional: Yes: No Distress, Calm Eyes: Yes: Conjunctiva Clear Neck: Yes: Supple Cardiovascular: Yes: Regular Rate and Rhythm Respiratory: Yes: Diminished Gastrointestinal: Yes: Soft Edema: No Neurological: Yes: Alert Labs: CBC, BMP 06/02/18 05:30 06/02/18 05:30 Imaging - Results Cat Scan: Report Reviewed EKG: Report Reviewed Problem List - Problems (1) GI bleed Code(s): K92.2 - GASTROINTESTINAL HEMORRHAGE, UNSPECIFIED Qualifiers: GI bleed type/associated pathology: unspecified gastrointestinal hemorrhage type Qualified Code(s): K92.2 - Gastrointestinal hemorrhage, unspecified (2) Hypotension Code(s): I95.9 - HYPOTENSION, UNSPECIFIED Qualifiers: Hypotension type: unspecified hypotension type Qualified Code(s): I95.9 - Hypotension, unspecified (3) Diabetes mellitus Code(s): E11.9 - TYPE 2 DIABETES MELLITUS WITHOUT COMPLICATIONS Qualifiers: Diabetes mellitus type: type 2 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 Hold diabetic meds Monitor labs condition gaurded cc time 35 min Discussed with Resident team/ Nursing staff. will follow
[2018-06-02] MEDS ORDERED: EPINEPHrine 1:10,000 (P-F SYR) 1 MG/10 ML DISP.SYRIN IVPUSH ONE (13:29)
[2018-06-02] MEDS ORDERED: SIMETHICONE 40 MG/0.6 ML BOTTLE ONE (13:42)
[2018-06-02] MEDS ORDERED: EPINEPHrine 1:10,000 (P-F SYR) 1 MG/10 ML DISP.SYRIN ONE (13:45)
--- NOTE | 2018-06-02 14:15 | PROC ---
Endoscopy Procedure Endoscopy procedure completed. Please see scanned procedure report. Actively bleeding duodenal ulcer with adherent blood clot in the 1st portion of the duodenum was found, injected with epi and coagulated with a heater probe. Complete hemostats was achieved. ICU x 24 hr PPI IV drip Liquid carafate PO QID NPO x 24 hr 1 U PRBC
--- NOTE | 2018-06-02 15:02 | PN ---
Teaching Attending Note Name of Resident: Mumtaz Enriquez ATTENDING PHYSICIAN STATEMENT I saw and evaluated the patient. I reviewed the resident's note and discussed the case with the resident. I agree with the resident's findings and plan as documented. SUBJECTIVE: Patient seen and examined in the ICU. Awake and alert. Denies CP or SOB. Denies abdominal pain. No occult bleeding. Intake & Output 05/30/18 05/31/18 06/01/18 06/02/18 23:59 23:59 23:59 23:59 Intake Total 724 650 Output Total 700 1250 Balance 24 -600 Weight 221 lb 5 oz 224 lb 10.417 oz Last Vital Signs Temp Pulse Resp BP Pulse Ox 9804 F H 96 H 18 107/67 100 06/02/18 06:00 06/02/18 08:00 06/02/18 09:00 06/02/18 08:00 06/02/18 09:00 Active Medications Acetaminophen (Ofirmev Injection -) 1,000 mg IVPB Q6H PRN PRN Reason: HEADACHE Chlorhexidine Gluconate (Hibiclens For Decolonization -) 1 applic TP HS [facility] Pantoprazole Sodium 80 mg/ (Sodium Chloride) 100 mls @ 10 mls/hr IVPB Q10H ZORA Last Admin: 06/02/18 11:36 Dose: 10 mls/hr Insulin Aspart (Novolog Vial Sliding Scale -) 1 vial SQ ACHS [facility]; Protocol Mupirocin (Bactroban Ointment (For Decolonization) -) 1 applic NS BID ZORA Stop: 06/07/18 21:59 Sucralfate (Carafate Oral Suspension -) 1 gm PO QID ZORA GENERAL: NAD, awake, alert HEENT: Nc/At, Conjunctival pallor noted, dry mucosa NECK: Soft, No JVD LUNGS: Clear, (-) wheeze. No accessory muscle use. HEART: Regular rate and rhythm, normal S1 and S2 without murmur, rub or gallop. ABDOMEN: Soft, nondistended, tenderness to deep palpation LUQ and periumbilical region, (+) BS MUSCULOSKELETAL: No CVA tenderness. No joint effusions noted in knees or joints of hands. No sacral decubiti EXTREMITIES: 2+ DP pulses, warm, well-perfused. No cyanosis. Cap refill <2 seconds. No peripheral edema. NEUROLOGICAL: Nonfocal exam. PSYCHIATRIC: Cooperative. Good eye contact. Appropriate mood and affect. SKIN: Warm, dry, no rashes or lesions noted. Laboratory Results - last 24 hr 06/01/18 06/01/18 06/01/18 11:54 12:00 14:50 WBC RBC Hgb Hct MCV MCH MCHC RDW Plt Count MPV Absolute Neuts (auto) Neutrophils % Lymphocytes % Monocytes % Eosinophils % Basophils % Nucleated RBC % PT with INR INR Sodium Potassium Chloride Carbon Dioxide Anion Gap BUN Creatinine Creat Clearance w eGFR POC Glucometer [phone] Random Glucose Lactic Acid Calcium Phosphorus Magnesium Total Bilirubin AST ALT Alkaline Phosphatase Troponin I Total Protein Albumin Urine Color Straw Urine Appearance Clear Urine pH 5.0 Ur Specific [place] 1.017 Urine Protein Negative Urine Glucose (UA) 1+ H Urine Ketones Trace H Urine Blood Negative Urine Nitrite Negative Urine Bilirubin Negative Urine Urobilinogen Negative Ur Leukocyte Esterase Negative Blood Type O POSITIVE Antibody Screen Negative Crossmatch See Detail 06/01/18 06/01/18 06/01/18 19:40 19:40 19:40 WBC 17.7 H RBC 2.78 L Hgb 8.2 L Hct 25.2 L MCV 90.8 MCH 29.4 MCHC 32.4 RDW 14.8 Plt Count 169 MPV 10.4 Absolute Neuts (auto) Neutrophils % Lymphocytes % Monocytes % Eosinophils % Basophils % Nucleated RBC % PT with INR INR Sodium Potassium Chloride Carbon Dioxide Anion Gap BUN Creatinine Creat Clearance w eGFR POC Glucometer Random Glucose Lactic Acid 3.0 H* Calcium Phosphorus Magnesium Total Bilirubin AST ALT Alkaline Phosphatase Troponin I 0.04 Total Protein Albumin Urine Color Urine Appearance Urine pH Ur Specific [place] Urine Protein Urine Glucose (UA) Urine Ketones Urine Blood Urine Nitrite Urine Bilirubin Urine Urobilinogen Ur Leukocyte Esterase Blood Type Antibody Screen Crossmatch 06/02/18 06/02/18 06/02/18 05:30 05:30 05:30 WBC 14.0 H RBC 2.74 L Hgb 8.3 L Hct 24.6 L MCV 89.5 MCH 30.1 MCHC 33.6 RDW 14.8 Plt Count 184 MPV 10.2 Absolute Neuts (auto) 11.2 Neutrophils % 80.1 Lymphocytes % 11.1 D Monocytes % 8.1 D Eosinophils % 0.2 D Basophils % 0.5 Nucleated RBC % 0 PT with INR 11.70 INR 1.04 Sodium 138 Potassium 4.6 Chloride 105 Carbon Dioxide 27 D Anion Gap 6 L BUN 88 H Creatinine 1.9 H Creat Clearance w eGFR 33.70 POC Glucometer Random Glucose 330 H* Lactic Acid Calcium 8.5 Phosphorus 2.1 L Magnesium 2.8 H Total Bilirubin 0.6 AST 11 L D ALT 21 Alkaline Phosphatase 48 Troponin I Total Protein 5.2 L Albumin 2.8 L Urine Color Urine Appearance Urine pH Ur Specific [place] Urine Protein Urine Glucose (UA) Urine Ketones Urine Blood Urine Nitrite Urine Bilirubin Urine Urobilinogen Ur Leukocyte Esterase Blood Type Antibody Screen Crossmatch ASSESSMENT/PLAN: GI bleed: R/O Upper versus Lower AFib Demand Ischemia [place] Dementia MYLES Leukocytosis Normal transfusion thresholds Follow CE O2 as needed SCD's for VTE prophylaxis Follow Renal function ECHO PPI NPO For Endoscopic evaluation ICU monitoring Dr Nieto Critical care time spent in reviewing chart, evaluating patient and formulating plan - 36 minutes.
[2018-06-02] MEDS: INSULIN SLIDING SCALE (NOVOLOG) 1 VIAL SQ SCH ×3 (15:21→21:21)
[2018-06-02] MEDS: SUCRALFATE 1 GM/10 ML UNIT DOSE CUPS PO SCH ×2 (19:44→21:14)
--- NOTE | 2018-06-02 20:27 | PN ---
Physical Exam: SUBJECTIVE: Patient seen and examined this am and evening in the icu. Resting in bed comfortably. S/P Endoscopy w/ Dr Moreira. Denies cp, sob, arellano, nausea, or vomiting. OBJECTIVE: Vital Signs Period Temp Pulse Resp BP Sys/Post Pulse Ox Last 24 Hr 97.6 F-9804 F 94-120 17-22 93-131/45-72 100-100 GENERAL: AAOx1. Resting in bed comfortably. HEAD: NC/AT EYES: EOMI ENT: Erythema of throat. NECK: WNL LUNGS: CTA B/L HEART: Irregular ABDOMEN: No HSM, ND, NT EXTREMITIES: No CCE NEUROLOGICAL: No focal deficits. SKIN: Anemic, pale. Laboratory Results - last 24 hr 06/01/18 06/01/18 06/01/18 11:54 12:00 19:40 WBC RBC Hgb Hct MCV MCH MCHC RDW Plt Count MPV Absolute Neuts (auto) Neutrophils % Lymphocytes % Monocytes % Eosinophils % Basophils % Nucleated RBC % PT with INR INR Sodium Potassium Chloride Carbon Dioxide Anion Gap BUN Creatinine Creat Clearance w eGFR POC Glucometer [phone] Random Glucose Lactic Acid 3.0 H* Calcium Phosphorus Magnesium Total Bilirubin AST ALT Alkaline Phosphatase Troponin I Total Protein Albumin Blood Type O POSITIVE Antibody Screen Negative Crossmatch See Detail 06/01/18 06/02/18 06/02/18 19:40 05:30 05:30 WBC 14.0 H RBC 2.74 L Hgb 8.3 L Hct 24.6 L MCV 89.5 MCH 30.1 MCHC 33.6 RDW 14.8 Plt Count 184 MPV 10.2 Absolute Neuts (auto) 11.2 Neutrophils % 80.1 Lymphocytes % 11.1 D Monocytes % 8.1 D Eosinophils % 0.2 D Basophils % 0.5 Nucleated RBC % 0 PT with INR 11.70 INR 1.04 Sodium Potassium Chloride Carbon Dioxide Anion Gap BUN Creatinine Creat Clearance w eGFR POC Glucometer Random Glucose Lactic Acid Calcium Phosphorus Magnesium Total Bilirubin AST ALT Alkaline Phosphatase Troponin I 0.04 Total Protein Albumin Blood Type Antibody Screen Crossmatch 06/02/18 06/02/18 05:30 16:02 WBC RBC Hgb Hct MCV MCH MCHC RDW Plt Count MPV Absolute Neuts (auto) Neutrophils % Lymphocytes % Monocytes % Eosinophils % Basophils % Nucleated RBC % PT with INR INR Sodium 138 Potassium 4.6 Chloride 105 Carbon Dioxide 27 D Anion Gap 6 L BUN 88 H Creatinine 1.9 H Creat Clearance w eGFR 33.70 POC Glucometer [phone] Random Glucose 330 H* Lactic Acid Calcium 8.5 Phosphorus 2.1 L Magnesium 2.8 H Total Bilirubin 0.6 AST 11 L D ALT 21 Alkaline Phosphatase 48 Troponin I Total Protein 5.2 L Albumin 2.8 L Blood Type Antibody Screen Crossmatch Active Medications Generic Name Dose Route Start Last Admin Trade Name Prashant PRN Reason Stop Dose Admin Acetaminophen 1,000 mg 06/02/18 11:25 06/02/18 15:10 Ofirmev Injection - IVPB 1,000 mg Q6H PRN Administration HEADACHE Chlorhexidine Gluconate 1 applic 06/02/18 22:00 Hibiclens For Decolonization - TP HS ZORA Pantoprazole Sodium 80 mg/ 100 mls @ 10 mls/hr 06/01/18 13:00 06/02/18 19:44 Sodium Chloride IVPB 10 mls/hr Q10H ZORA Administration 8 MG/HR Insulin Aspart 1 vial 06/02/18 07:07 06/02/18 16:06 Novolog Vial Sliding Scale - SQ 10 units ACHS ZORA Administration Protocol Mupirocin 1 applic 06/02/18 22:00 Bactroban Ointment (For Decolonization) - NS 06/07/18 21:59 BID ZORA Sucralfate 1 gm 06/02/18 18:00 06/02/18 19:44 Carafate Oral Suspension - PO 1 gm QID ZORA Administration ASSESSMENT/PLAN: 88 y/o gentleman w/ pmh of diabetes mellitus, HTN, AFib (not on a/c), hyperlipidemia, rhabdomyolysis, dementia, bilateral knee replacements, and frequent falls. Neuro- AAOx1 Cardio: Atrial Fibrillation -Not on any AC except for Aspirin 81 mg - EKG 06/01---> Right Bundle Branch Block Compared with EKG on 05/20---> PAC No longer present, Left anterior Fascicular block no longer present -Monitor on telemetry Tammi Underwent Endoscopy today with Dr Moreira which revealed an actively bleeding duodenal ulcer with adherent blood clot in the 1st portion of the duodenum. Epinephrine was injected and ulcer was coagulated with a heater probe. Drop of Hgb noted from 14.4 (Radha 7 2018) to now 8.3 today Stool Occult blood positive Protonix gtt CT ---> diverticulosis Received 1 U PRBC s/p Endoscopy. FEN No Fluids Monitor Electrolytes NPO DVT ppx SCD's Dispo: Continue to monitor in icu. Visit type - Emergency Visit Emergency Visit: Yes ED Registration Date: 06/01/18 Care time: The patient presented to the Emergency Department on the above date and was hospitalized for further evaluation of their emergent condition. - New Patient This patient is new to me today: Yes Date on this admission: 06/02/18 - Critical Care Critical Care patient: Yes Total Critical Care Time (in minutes): 36 Critical Care Statement: The care of this patient involved high complexity decision making to prevent further life threatening deterioration of the patient 's condition and/or to evaluate & treat vital organ system(s) failure or risk of failure.
[2018-06-02 21:13] LABS: HEMATOCRIT 22.8 % (35.4-49); HEMOGLOBIN 7.5 GM/dL (11.7-16.9); MCH 28.9 pg (25.7-33.7); MCHC 32.7 g/dl (32.0-35.9); MEAN CELL VOLUME 88.3 fl (80-96); MEAN PLT VOLUME 9.9 fl (7.5-11.1); PLATELET COUNT 169 K/MM3 (134-434); RBC 2.59 M/mm3 (4.00-5.60); RDW 16.7 % (11.9-15.9); WHITE BLOOD COUNT 15.7 K/mm3 (4.0-10.0)
[2018-06-02] MEDS: CHLORHEXIDINE GLUCONATE 4% CLEANSER FOR DECOLONIZATION TP SCH (21:20)
[2018-06-02] MEDS: MUPIROCIN 2% TOPICAL OINTMENT FOR DECOLONIZATION NS SCH (21:20)
[2018-06-02] MEDS ORDERED: SUCRALFATE 1 GM/10 ML UNIT DOSE CUPS PO SCH (22:00)
[2018-06-03] MEDS: PANTOPRAZOLE SODIUM 80 MG in SODIUM CHLORIDE 100 ML IVPB SCH ×2 (05:30→15:17)
[2018-06-03 05:56] LABS: BASO % 0.8 % (0-2.0); EOS % 1.2 % (0-4.5); HEMATOCRIT 20.2 % (35.4-49); LYMPH % 20.3 % (8-40); MCH 29.9 pg (25.7-33.7); MCHC 34.2 g/dl (32.0-35.9); MEAN CELL VOLUME 87.3 fl (80-96); MONO % 8.6 % (3.8-10.2); NEUT % 69.1 % (42.8-82.8); PLATELET COUNT 150 K/MM3 (134-434); RBC 2.32 M/mm3 (4.00-5.60); RDW 17.1 % (11.9-15.9); WHITE BLOOD COUNT 14.6 K/mm3 (4.0-10.0)
[2018-06-03 06:08] LABS: HEMOGLOBIN 6.9 GM/dL (11.7-16.9)
[2018-06-03 06:31] LABS: ALBUMIN 2.6 g/dl (3.4-5.0); ANION GAP 8 (8-16); BILIRUBIN,TOTAL 0.4 mg/dL (0.2-1.0); BLOOD UREA NITROGEN 72 mg/dL (7-18); CALCIUM 8.2 mg/dL (8.5-10.1); CHLORIDE 110 mmol/L (98-107); CO2 26 mmol/L (21-32); CREATININE 1.7 mg/dL (0.7-1.3); GLUCOSE,RANDOM 144 mg/dL (74-106); MAGNESIUM 2.5 mg/dL (1.8-2.4); PHOSPHOROUS 2.5 mg/dL (2.5-4.9); POTASSIUM 4.2 mmol/L (3.5-5.1); SGOT/AST 27 U/L (15-37); SGPT/ALT 19 U/L (12-78); SODIUM 144 mmol/L (136-145); TOT PROT 4.6 g/dl (6.4-8.2)
[2018-06-03 06:32] LABS: ALK PHOS 41 U/L (45-117)
[2018-06-03] MEDS: INSULIN SLIDING SCALE (NOVOLOG) 1 VIAL SQ SCH ×4 (07:30→21:50)
[2018-06-03] MEDS: SUCRALFATE 1 GM/10 ML UNIT DOSE CUPS PO SCH ×4 (10:08→21:47)
[2018-06-03] MEDS: MUPIROCIN 2% TOPICAL OINTMENT FOR DECOLONIZATION NS SCH ×2 (10:09→21:49)
--- NOTE | 2018-06-03 10:32 | PN ---
Progress Note, Physician Chief Complaint: Events noted Feels weak No abdominal pain EGD findings noted receiving 1 unit PRBC - Current Medication List Current Medications: Active Medications Acetaminophen (Ofirmev Injection -) 1,000 mg IVPB Q6H PRN PRN Reason: HEADACHE Last Admin: 06/02/18 15:10 Dose: 1,000 mg Chlorhexidine Gluconate (Hibiclens For Decolonization -) 1 applic TP HS [facility] Last Admin: 06/02/18 21:20 Dose: 1 applic Pantoprazole Sodium 80 mg/ (Sodium Chloride) 100 mls @ 10 mls/hr IVPB Q10H [facility] Last Admin: 06/03/18 05:30 Dose: 10 mls/hr Insulin Aspart (Novolog Vial Sliding Scale -) 1 vial SQ ACHS [facility]; Protocol Last Admin: 06/03/18 07:30 Dose: Not Given Mupirocin (Bactroban Ointment (For Decolonization) -) 1 applic NS BID [facility] Stop: 06/07/18 21:59 Last Admin: 06/03/18 10:09 Dose: 1 applic Sucralfate (Carafate Oral Suspension -) 1 gm PO QID [facility] Last Admin: 06/03/18 10:08 Dose: 1 gm - Objective Vital Signs: Vital Signs Temperature 98 F 06/03/18 08:00 Pulse Rate 103 H 06/03/18 08:00 Respiratory Rate 11 L 06/03/18 08:37 Blood Pressure 120/68 06/03/18 08:00 O2 Sat by Pulse Oximetry (%) 99 06/03/18 08:37 Constitutional: Yes: No Distress, Calm Cardiovascular: Yes: Regular Rate and Rhythm Respiratory: Yes: Diminished Gastrointestinal: Yes: Normal Bowel Sounds, Soft, Abdomen, Obese. No: Tenderness Edema: No Labs: CBC, BMP 06/03/18 05:30 06/03/18 05:30 INR, PTT INR 1.04 (0.82-1.09) 06/02/18 05:30 Problem List - Problems (1) GI bleed Code(s): K92.2 - GASTROINTESTINAL HEMORRHAGE, UNSPECIFIED Qualifiers: GI bleed type/associated pathology: unspecified gastrointestinal hemorrhage type Qualified Code(s): K92.2 - Gastrointestinal hemorrhage, unspecified (2) Hypotension Code(s): I95.9 - HYPOTENSION, UNSPECIFIED Qualifiers: Hypotension type: unspecified hypotension type Qualified Code(s): I95.9 - Hypotension, unspecified (3) Diabetes mellitus Code(s): E11.9 - TYPE 2 DIABETES MELLITUS WITHOUT COMPLICATIONS Qualifiers: Diabetes mellitus type: type 2 Diabetes mellitus roasterman insulin use: without usp use (4) HTN (hypertension) Code(s): I10 - ESSENTIAL (PRIMARY) HYPERTENSION Qualifiers: Hypertension type: essential hypertension Qualified Code(s): I10 - Essential (primary) hypertension (5) Hyperlipidemia Code(s): E78.5 - HYPERLIPIDEMIA, UNSPECIFIED Assessment/Plan PLAN Bleeding ulcer in duodenum on EGD on Protonix GTT receiving PRBC now NPO Repeat CBC post transfusion Monitor in ICU
--- NOTE | 2018-06-03 11:28 | PN ---
Teaching Attending Note Name of Resident: Mumtaz Enriquez ATTENDING PHYSICIAN STATEMENT I saw and evaluated the patient. I reviewed the resident's note and discussed the case with the resident. I agree with the resident's findings and plan as documented. SUBJECTIVE: Patient seen and examined in the ICU. Awake and alert. Denies CP or SOB. Denies abdominal pain. No occult bleeding, but H&H decreased to 6.9 this AM. Intake & Output 05/31/18 06/01/18 06/02/18 06/03/18 23:59 23:59 23:59 23:59 Intake Total 724 1270 520 Output Total 700 1650 700 Balance 24 -380 -180 Weight 221 lb 5 oz 224 lb 10.417 oz 225 lb 15.581 oz Last Vital Signs Temp Pulse Resp BP Pulse Ox 98 F 102 H 16 114/61 99 06/03/18 08:00 06/03/18 10:00 06/03/18 10:00 06/03/18 10:00 06/03/18 08:37 Active Medications Acetaminophen (Ofirmev Injection -) 1,000 mg IVPB Q6H PRN PRN Reason: HEADACHE Last Admin: 06/02/18 15:10 Dose: 1,000 mg Chlorhexidine Gluconate (Hibiclens For Decolonization -) 1 applic TP HS [facility] Last Admin: 06/02/18 21:20 Dose: 1 applic Pantoprazole Sodium 80 mg/ (Sodium Chloride) 100 mls @ 10 mls/hr IVPB Q10H [facility] Last Admin: 06/03/18 05:30 Dose: 10 mls/hr Insulin Aspart (Novolog Vial Sliding Scale -) 1 vial SQ ACHS [facility]; Protocol Last Admin: 06/03/18 07:30 Dose: Not Given Mupirocin (Bactroban Ointment (For Decolonization) -) 1 applic NS BID [facility] Stop: 06/07/18 21:59 Last Admin: 06/03/18 10:09 Dose: 1 applic Sucralfate (Carafate Oral Suspension -) 1 gm PO QID [facility] Last Admin: 06/03/18 10:08 Dose: 1 gm GENERAL: NAD, awake, alert HEENT: Nc/At, Conjunctival pallor noted, dry mucosa NECK: Soft, No JVD LUNGS: Clear, (-) wheeze. No accessory muscle use. HEART: Regular rate and rhythm, normal S1 and S2 without murmur, rub or gallop. ABDOMEN: Soft, nondistended, tenderness to deep palpation LUQ and periumbilical region, (+) BS MUSCULOSKELETAL: No CVA tenderness. No joint effusions noted in knees or joints of hands. No sacral decubiti EXTREMITIES: 2+ DP pulses, warm, well-perfused. No cyanosis. Cap refill <2 seconds. No peripheral edema. NEUROLOGICAL: Nonfocal exam. PSYCHIATRIC: Cooperative. Good eye contact. Appropriate mood and affect. SKIN: Warm, dry, no rashes or lesions noted. Laboratory Results - last 24 hr 06/01/18 06/02/18 06/02/18 12:00 16:02 20:30 WBC 15.7 H RBC 2.59 L Hgb 7.5 L Hct 22.8 L MCV 88.3 MCH 28.9 MCHC 32.7 RDW 16.7 H Plt Count 169 MPV 9.9 Absolute Neuts (auto) Neutrophils % Lymphocytes % Monocytes % Eosinophils % Basophils % Nucleated RBC % Sodium Potassium Chloride Carbon Dioxide Anion Gap BUN Creatinine Creat Clearance w eGFR POC Glucometer [phone] Random Glucose Hemoglobin A1c % Calcium Phosphorus Magnesium Total Bilirubin AST ALT Alkaline Phosphatase Total Protein Albumin Blood Type O POSITIVE Antibody Screen Negative Crossmatch See Detail 06/02/18 06/03/18 06/03/18 21:19 05:30 05:30 WBC 14.6 H RBC 2.32 L Hgb 6.9 L* Hct 20.2 L MCV 87.3 MCH 29.9 MCHC 34.2 RDW 17.1 H Plt Count 150 MPV 10.0 Absolute Neuts (auto) 10.1 Neutrophils % 69.1 Lymphocytes % 20.3 D Monocytes % 8.6 Eosinophils % 1.2 D Basophils % 0.8 Nucleated RBC % 0 Sodium Potassium Chloride Carbon Dioxide Anion Gap BUN Creatinine Creat Clearance w eGFR POC Glucometer [phone] Random Glucose Hemoglobin A1c % 7.9 H D Calcium Phosphorus Magnesium Total Bilirubin AST ALT Alkaline Phosphatase Total Protein Albumin Blood Type Antibody Screen Crossmatch 06/03/18 05:30 WBC RBC Hgb Hct MCV MCH MCHC RDW Plt Count MPV Absolute Neuts (auto) Neutrophils % Lymphocytes % Monocytes % Eosinophils % Basophils % Nucleated RBC % Sodium 144 Potassium 4.2 Chloride 110 H Carbon Dioxide 26 Anion Gap 8 BUN 72 H Creatinine 1.7 H Creat Clearance w eGFR 38.32 POC Glucometer Random Glucose 144 H D Hemoglobin A1c % Calcium 8.2 L Phosphorus 2.5 Magnesium 2.5 H Total Bilirubin 0.4 AST 27 D ALT 19 Alkaline Phosphatase 41 L Total Protein 4.6 L Albumin 2.6 L Blood Type Antibody Screen Crossmatch ASSESSMENT/PLAN: GI bleedc due to a duodenal ulcer AFib Demand Ischemia [place] Dementia MYLES Leukocytosis Normal transfusion thresholds O2 as needed SCD's for VTE prophylaxis Follow Renal function ECHO PPI NPO x [address] Nieto Critical care time spent in reviewing chart, evaluating patient and formulating plan - 36 minutes.
--- NOTE | 2018-06-03 11:42 | PN ---
Physical Exam: SUBJECTIVE: Patient seen and examined today in icu. Resting in bed comfortably. Still c/o mild abdominal discomfort upon palpation. Denies cp, sob, arellano, nausea, or vomiting. OBJECTIVE: Vital Signs Period Temp Pulse Resp BP Sys/Post Pulse Ox Last 24 Hr 97.6 F-98.5 F 94-120 11-22 93-142/47-84 99-99 GENERAL: AAOx1. Resting in bed comfortably. HEAD: NC/AT EYES: EOMI ENT: MMM NECK: WNL LUNGS: CTA B/L HEART: Irregular ABDOMEN: No HSM, ND, NT EXTREMITIES: No CCE NEUROLOGICAL: No focal deficits. SKIN: Anemic, pale. Laboratory Results - last 24 hr 06/01/18 06/02/18 06/02/18 12:00 16:02 20:30 WBC 15.7 H RBC 2.59 L Hgb 7.5 L Hct 22.8 L MCV 88.3 MCH 28.9 MCHC 32.7 RDW 16.7 H Plt Count 169 MPV 9.9 Absolute Neuts (auto) Neutrophils % Lymphocytes % Monocytes % Eosinophils % Basophils % Nucleated RBC % Sodium Potassium Chloride Carbon Dioxide Anion Gap BUN Creatinine Creat Clearance w eGFR POC Glucometer [phone] Random Glucose Hemoglobin A1c % Calcium Phosphorus Magnesium Total Bilirubin AST ALT Alkaline Phosphatase Total Protein Albumin Blood Type O POSITIVE Antibody Screen Negative Crossmatch See Detail 06/02/18 06/03/18 06/03/18 21:19 05:30 05:30 WBC 14.6 H RBC 2.32 L Hgb 6.9 L* Hct 20.2 L MCV 87.3 MCH 29.9 MCHC 34.2 RDW 17.1 H Plt Count 150 MPV 10.0 Absolute Neuts (auto) 10.1 Neutrophils % 69.1 Lymphocytes % 20.3 D Monocytes % 8.6 Eosinophils % 1.2 D Basophils % 0.8 Nucleated RBC % 0 Sodium Potassium Chloride Carbon Dioxide Anion Gap BUN Creatinine Creat Clearance w eGFR POC Glucometer [phone] Random Glucose Hemoglobin A1c % 7.9 H D Calcium Phosphorus Magnesium Total Bilirubin AST ALT Alkaline Phosphatase Total Protein Albumin Blood Type Antibody Screen Crossmatch 06/03/18 05:30 WBC RBC Hgb Hct MCV MCH MCHC RDW Plt Count MPV Absolute Neuts (auto) Neutrophils % Lymphocytes % Monocytes % Eosinophils % Basophils % Nucleated RBC % Sodium 144 Potassium 4.2 Chloride 110 H Carbon Dioxide 26 Anion Gap 8 BUN 72 H Creatinine 1.7 H Creat Clearance w eGFR 38.32 POC Glucometer Random Glucose 144 H D Hemoglobin A1c % Calcium 8.2 L Phosphorus 2.5 Magnesium 2.5 H Total Bilirubin 0.4 AST 27 D ALT 19 Alkaline Phosphatase 41 L Total Protein 4.6 L Albumin 2.6 L Blood Type Antibody Screen Crossmatch Active Medications Generic Name Dose Route Start Last Admin Trade Name Prashant PRN Reason Stop Dose Admin Acetaminophen 1,000 mg 06/02/18 11:25 06/02/18 15:10 Ofirmev Injection - IVPB 1,000 mg Q6H PRN Administration HEADACHE Chlorhexidine Gluconate 1 applic 06/02/18 22:00 06/02/18 21:20 Hibiclens For Decolonization - TP 1 applic HS [facility] Administration Pantoprazole Sodium 80 mg/ 100 mls @ 10 mls/hr 06/01/18 13:00 06/03/18 05:30 Sodium Chloride IVPB 10 mls/hr Q10H [facility] Administration 8 MG/HR Insulin Aspart 1 vial 06/02/18 07:07 06/03/18 07:30 Novolog Vial Sliding Scale - SQ Not Given ACHS [facility] Protocol Mupirocin 1 applic 06/02/18 22:00 06/03/18 10:09 Bactroban Ointment (For Decolonization) - NS 06/07/18 21:59 1 applic BID [facility] Administration Sucralfate 1 gm 06/02/18 18:00 06/03/18 10:08 Carafate Oral Suspension - PO 1 gm QID [facility] Administration ASSESSMENT/PLAN: 88 y/o gentleman w/ pmh of diabetes mellitus, HTN, AFib (not on a/c), hyperlipidemia, rhabdomyolysis, dementia, bilateral knee replacements, and frequent falls. Neuro- AAOx1 Cardio: Atrial Fibrillation -Not on any AC except for Aspirin 81 mg - EKG 06/01---> Right Bundle Branch Block Compared with EKG on 05/20---> PAC No longer present, Left anterior Fascicular block no longer present -Monitor on telemetry Tammi Underwent Endoscopy yesterday with Dr Moreira which revealed an actively bleeding duodenal ulcer with adherent blood clot in the 1st portion of the duodenum. Epinephrine was injected and ulcer was coagulated with a heater probe. Drop of Hgb noted from 14.4 (May 17 2018) to now 6.9 today 06/03/18 Stool Occult blood positive Protonix gtt CT ---> diverticulosis Received 1 U PRBC s/p Endoscopy. Receiving another unit of PRBC today. will check CBC after transfusion. FEN No Fluids Monitor Electrolytes NPO DVT ppx SCD's Dispo: Continue to monitor in icu. Visit type - Emergency Visit Emergency Visit: Yes ED Registration Date: 06/01/18 Care time: The patient presented to the Emergency Department on the above date and was hospitalized for further evaluation of their emergent condition. - New Patient This patient is new to me today: No - Critical Care Critical Care patient: Yes Total Critical Care Time (in minutes): 35 Critical Care Statement: The care of this patient involved high complexity decision making to prevent further life threatening deterioration of the patient 's condition and/or to evaluate & treat vital organ system(s) failure or risk of failure.
[2018-06-03] MEDS ORDERED: EPINEPHrine 1:10,000 (P-F SYR) 1 MG/10 ML DISP.SYRIN ONE (12:25)
[2018-06-03 14:09] LABS: BASO % 0.5 % (0-2.0); EOS % 0.7 % (0-4.5); HEMATOCRIT 23.3 % (35.4-49); HEMOGLOBIN 7.7 GM/dL (11.7-16.9); LYMPH % 16.4 % (8-40); MCH 28.9 pg (25.7-33.7); MEAN CELL VOLUME 87.6 fl (80-96); MEAN PLT VOLUME 9.7 fl (7.5-11.1); MONO % 7.8 % (3.8-10.2); NEUT % 74.6 % (42.8-82.8); PLATELET COUNT 164 K/MM3 (134-434); RBC 2.66 M/mm3 (4.00-5.60); RDW 16.3 % (11.9-15.9); WHITE BLOOD COUNT 13.4 K/mm3 (4.0-10.0)
--- NOTE | 2018-06-03 15:03 | PN ---
Progress Note (short form) - Note Progress Note: Anesthesia postop note 88 y/o M s/p GA for EGD with control of bleeding POD#1, vss, aaox3, feeling better, no complaints. No anesthesia complications.
[2018-06-03] MEDS ORDERED: PT OWN MED DRAWER 7, Y5N ONE ×2 (17:47→21:40)
--- NOTE | 2018-06-03 19:36 | CONSULT ---
Consult Consult Specialty:: endocrine Referred by:: pcp Reason for Consultation:: diabetes mellitus - History of Present Illness Chief Complaint: high sugars History of Present Illness: 88yo M h/o mild dementia, Afib (only on ASA), HTn, DM admitted with shortness of breath and lightheadedness. he has had abdominal nelson umbilical region. Pt with burning substernal pain. he denies hyperglycemia or hypoglycemia,unsure of medication and not checking sugars regularly. - History Source History Provided By: Patient - Past Medical History Cardio/Vascular: Yes: HTN Endocrine: Yes: Diabetes Mellitus - Past Surgical History Past Surgical History: Yes: Joint Replacement - Alcohol/Substance Use Hx Alcohol Use: Yes (previously) History of Substance Use: reports: None - Smoking History Smoking history: Former smoker Have you smoked in the past 12 months: No Aproximately how many cigarettes per day: 0 If you are a former smoker, when did you quit?: 0 Home Medications - Allergies Allergies/Adverse Reactions: Allergies Allergy/AdvReac Type Severity Reaction Status Date / Time No Known Allergies Allergy Verified 05/20/18 04:52 - Home Medications Home Medications: Ambulatory Orders Atorvastatin Ca [Lipitor] 10 mg PO HS #20 tablet 05/21/18 Lisinopril [Prinivil] 5 mg PO DAILY #30 tablet 05/21/18 Aspirin 81 mg PO DAILY #30 tab.chew 05/23/18 Glipizide [Glucotrol -] 5 mg PO DAILY@0700 tablet 05/23/18 metFORMIN HCL [Glucophage -] 1,000 mg PO BID@0700,1630 tablet 05/23/18 Acetaminophen [Tylenol .Regular Strength -] 650 mg PO Q6H PRN 06/01/18 Benzocaine/Menthol [Cepacol Sore Throat Lozenge] 1 each MM ASDIR 06/01/18 Cholecalciferol (Vitamin D3) [Vitamin D3] 5,000 unit PO DAILY 06/01/18 Mag Hydrox/Al Hydrox/Simeth [Mylanta Oral Suspension -] 30 ml PO Q4HWA PRN 06/01 Multivit-Min/Iron Fum/Folic AC [Pivno-Ociihpk-Gossydoc Tablet] 1 each PO DAILY 06/01/18 Nystatin Cream [Mycostatin] 1 applic TP BID 06/01/18 Triamcinolone 0.1% Cream [Aristocort] 0 gm TP BID 06/01/18 Review of Systems - Review of Systems Constitutional: reports: Loss of Appetite, Weakness Eyes: reports: No Symptoms HENT: reports: No Symptoms Neck: reports: No Symptoms Respiratory: reports: SOB, SOB on Exertion Gastrointestinal: reports: Bloating Genitourinary: reports: Burning Breasts: reports: No Symptoms Reported Musculoskeletal: reports: Back Pain, Decreased ROM Integumentary: reports: No Symptoms Neurological: reports: Unsteady Gait, Weakness Endocrine: reports: No Symptoms Physical Exam Vital Signs: Vital Signs Temperature 97.8 F 06/03/18 18:00 Pulse Rate 94 H 06/03/18 18:00 Respiratory Rate 12 06/03/18 18:00 Blood Pressure 127/86 06/03/18 18:00 O2 Sat by Pulse Oximetry (%) 99 06/03/18 08:37 Constitutional: Yes: Calm Eyes: Yes: EOM Intact HENT: Yes: Normocephalic Neck: Yes: Trachea Midline Cardiovascular: Yes: Regular Rate and Rhythm Respiratory: Yes: CTA Bilaterally Gastrointestinal: Yes: Normal Bowel Sounds ...Rectal Exam: Yes: Deferred Renal/: Yes: WNL Musculoskeletal: Yes: Back Pain, Muscle Pain Neurological: Yes: Alert Labs: CBC, BMP 06/03/18 13:53 06/03/18 05:30 Problem List - Problems (1) GI bleed Code(s): K92.2 - GASTROINTESTINAL HEMORRHAGE, UNSPECIFIED Qualifiers: GI bleed type/associated pathology: unspecified gastrointestinal hemorrhage type Qualified Code(s): K92.2 - Gastrointestinal hemorrhage, unspecified (2) Hypotension Code(s): I95.9 - HYPOTENSION, UNSPECIFIED Qualifiers: Hypotension type: unspecified hypotension type Qualified Code(s): I95.9 - Hypotension, unspecified (3) DVT prophylaxis Code(s): [id number] - (4) Diabetes mellitus Code(s): E11.9 - TYPE 2 DIABETES MELLITUS WITHOUT COMPLICATIONS Qualifiers: Diabetes mellitus type: type 2 Diabetes mellitus 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 insulin use: without custodial use (5) Fall Code(s): W19.XXXA - UNSPECIFIED FALL, INITIAL ENCOUNTER Qualifiers: Encounter type: initial encounter Qualified Code(s): W19.XXXA - Unspecified fall, initial encounter (6) HTN (hypertension) Code(s): I10 - ESSENTIAL (PRIMARY) HYPERTENSION Qualifiers: Hypertension type: essential hypertension Qualified Code(s): I10 - Essential (primary) hypertension (7) Hyperlipidemia Code(s): E78.5 - HYPERLIPIDEMIA, UNSPECIFIED (8) Rhabdomyolysis Code(s): M62.82 - RHABDOMYOLYSIS Qualifiers: Rhabdomyolysis type: traumatic Encounter type: initial encounter Qualified Code(s): T79.6XXA - Traumatic ischemia of muscle, initial encounter Assessment/Plan Current Active Problems diabetes mellitus hyperglycemia type 2 dm,neuropathy ckd diabetic nephropathy GI bleed (Acute) Hypotension (Acute) Abnormal Lab Results 06/01/18 06/02/18 06/03/18 12:00 20:30 05:30 WBC 15.7 H RBC 2.59 L Hgb 7.5 L Hct 22.8 L RDW 16.7 H Chloride BUN Creatinine Random Glucose Hemoglobin A1c % 7.9 H D Calcium Magnesium Alkaline Phosphatase Total Protein Albumin Crossmatch See Detail 06/03/18 06/03/18 06/03/18 05:30 05:30 13:53 WBC 14.6 H 13.4 H RBC 2.32 L 2.66 L Hgb 6.9 L* 7.7 L Hct 20.2 L 23.3 L D RDW 17.1 H 16.3 H Chloride 110 H BUN 72 H Creatinine 1.7 H Random Glucose 144 H D Hemoglobin A1c % Calcium 8.2 L Magnesium 2.5 H Alkaline Phosphatase 41 L Total Protein 4.6 L Albumin 2.6 L Crossmatch Laboratory Tests 06/03/18 06/03/18 06/03/18 05:30 05:30 12:36 Sodium 144 Potassium 4.2 Chloride 110 H Carbon Dioxide 26 Anion Gap 8 BUN 72 H Creatinine 1.7 H Creat Clearance w eGFR 38.32 POC Glucometer [phone] Random Glucose 144 H D Hemoglobin A1c % 7.9 H D 06/03/18 17:44 Sodium Potassium Chloride Carbon Dioxide Anion Gap BUN Creatinine Creat Clearance w eGFR POC Glucometer [phone] Random Glucose Hemoglobin A1c % plan: bgm qid novolog insulin januvia 50mg daily add glimiperide 2mg daily nutrition consult
[2018-06-03 20:25] LABS: BASO % 0.7 % (0-2.0); EOS % 1.4 % (0-4.5); HEMATOCRIT 22.6 % (35.4-49); HEMOGLOBIN 7.5 GM/dL (11.7-16.9); LYMPH % 21.1 % (8-40); MCH 28.9 pg (25.7-33.7); MEAN CELL VOLUME 87.8 fl (80-96); MEAN PLT VOLUME 9.7 fl (7.5-11.1); MONO % 8.8 % (3.8-10.2); PLATELET COUNT 175 K/MM3 (134-434); RBC 2.58 M/mm3 (4.00-5.60); RDW 16.6 % (11.9-15.9); WHITE BLOOD COUNT 12.3 K/mm3 (4.0-10.0)
[2018-06-03] MEDS: CHLORHEXIDINE GLUCONATE 4% CLEANSER FOR DECOLONIZATION TP SCH (21:50)
[2018-06-04] MEDS: PANTOPRAZOLE SODIUM 80 MG in SODIUM CHLORIDE 100 ML IVPB SCH
[2018-06-04 00:19] VITALS: BMI 30.6
[2018-06-04 05:51] LABS: BASO % 0.6 % (0-2.0); EOS % 1.7 % (0-4.5); HEMATOCRIT 22.1 % (35.4-49); HEMOGLOBIN 7.3 GM/dL (11.7-16.9); MCHC 33.1 g/dl (32.0-35.9); MEAN CELL VOLUME 87.6 fl (80-96); MEAN PLT VOLUME 9.6 fl (7.5-11.1); MONO % 8.7 % (3.8-10.2); PLATELET COUNT 179 K/MM3 (134-434); RBC 2.52 M/mm3 (4.00-5.60); RDW 16.6 % (11.9-15.9); WHITE BLOOD COUNT 11.3 K/mm3 (4.0-10.0)
[2018-06-04 06:12] LABS: ALBUMIN 2.4 g/dl (3.4-5.0); ALK PHOS 47 U/L (45-117); ANION GAP 6 (8-16); BILIRUBIN,TOTAL 0.5 mg/dL (0.2-1.0); BLOOD UREA NITROGEN 41 mg/dL (7-18); CHLORIDE 109 mmol/L (98-107); CO2 26 mmol/L (21-32); CREATININE 1.3 mg/dL (0.7-1.3); GLUCOSE,RANDOM 144 mg/dL (74-106); MAGNESIUM 2.1 mg/dL (1.8-2.4); PHOSPHOROUS 2.6 mg/dL (2.5-4.9); POTASSIUM 4.2 mmol/L (3.5-5.1); SGOT/AST 25 U/L (15-37); SGPT/ALT 23 U/L (12-78); SODIUM 141 mmol/L (136-145); TOT PROT 4.6 g/dl (6.4-8.2)
[2018-06-04] MEDS: GLIMEPIRIDE 2 MG TABLET (FP) PO SCH (06:50)
[2018-06-04] MEDS: sitaGLIPtin PHOSPHATE 50 MG TABLET PO SCH (06:50)
[2018-06-04] MEDS: INSULIN SLIDING SCALE (NOVOLOG) 1 VIAL SQ SCH ×4 (06:50→21:40)
[2018-06-04] MEDS ORDERED: PT OWN MED DRAWER 7, Y5N ONE ×3 (08:44→21:30)
[2018-06-04] MEDS: SUCRALFATE 1 GM/10 ML UNIT DOSE CUPS PO SCH ×4 (09:54→21:39)
[2018-06-04] MEDS: MUPIROCIN 2% TOPICAL OINTMENT FOR DECOLONIZATION NS SCH ×2 (09:57→21:39)
--- NOTE | 2018-06-04 10:32 | PN ---
Progress Note, Physician Chief Complaint: SOB while sitting up in chair and gets dizzy No chest discomfort has abdominal discomfort - Current Medication List Current Medications: Active Medications Acetaminophen (Ofirmev Injection -) 1,000 mg IVPB Q6H PRN PRN Reason: HEADACHE Last Admin: 06/02/18 15:10 Dose: 1,000 mg Chlorhexidine Gluconate (Hibiclens For Decolonization -) 1 applic TP HS [facility] Last Admin: 06/03/18 21:50 Dose: 1 applic Glimepiride (Amaryl -) 2 mg PO DAILY@0700 [facility] Last Admin: 06/04/18 06:50 Dose: Not Given Pantoprazole Sodium 80 mg/ (Sodium Chloride) 100 mls @ 10 mls/hr IVPB Q10H [facility] Last Admin: 06/04/18 00:00 Dose: 10 mls/hr Insulin Aspart (Novolog Vial Sliding Scale -) 1 vial SQ [facility]; Protocol Last Admin: 06/04/18 06:50 Dose: 2 units Mupirocin (Bactroban Ointment (For Decolonization) -) 1 applic NS BID [facility] Stop: 06/07/18 21:59 Last Admin: 06/04/18 09:57 Dose: 1 applic Sitagliptin Phosphate (Januvia -) 50 mg PO DAILY@0700 [facility] Last Admin: 06/04/18 06:50 Dose: Not Given Sucralfate (Carafate Oral Suspension -) 1 gm PO QID [facility] Last Admin: 06/04/18 09:54 Dose: 1 gm - Objective Vital Signs: Vital Signs Temperature 97.8 F 06/04/18 09:48 Pulse Rate 96 H 06/04/18 09:48 Respiratory Rate 16 06/04/18 09:48 Blood Pressure 114/64 06/04/18 09:48 O2 Sat by Pulse Oximetry (%) 98 06/04/18 09:00 Constitutional: Yes: No Distress Cardiovascular: Yes: Regular Rate and Rhythm Respiratory: Yes: Diminished Gastrointestinal: Yes: Normal Bowel Sounds, Soft, Tenderness, Tenderness, Epigastrium Edema: No Labs: CBC, BMP 06/04/18 05:30 06/04/18 05:30 INR, PTT INR 1.04 (0.82-1.09) 06/02/18 05:30 Problem List - Problems (1) GI bleed Code(s): K92.2 - GASTROINTESTINAL HEMORRHAGE, UNSPECIFIED Qualifiers: GI bleed type/associated pathology: unspecified gastrointestinal hemorrhage type Qualified Code(s): K92.2 - Gastrointestinal hemorrhage, unspecified (2) Hypotension Code(s): I95.9 - HYPOTENSION, UNSPECIFIED Qualifiers: Hypotension type: unspecified hypotension type Qualified Code(s): I95.9 - Hypotension, unspecified (3) Diabetes mellitus Code(s): E11.9 - TYPE 2 DIABETES MELLITUS WITHOUT COMPLICATIONS Qualifiers: Diabetes mellitus type: type 2 Diabetes mellitus 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
--- NOTE | 2018-06-04 11:16 | PN ---
Teaching Attending Note Name of Resident: Mumtaz Enriquez ATTENDING PHYSICIAN STATEMENT I saw and evaluated the patient. I reviewed the resident's note and discussed the case with the resident. I agree with the resident's findings and plan as documented. SUBJECTIVE: Patient seen and examined in the ICU. Awake and alert. Denies CP or SOB. Denies abdominal pain. Slight decrease in H&H, but no occult bleeding. Intake & Output 06/01/18 06/02/18 06/03/18 06/04/18 23:59 23:59 23:59 23:59 Intake Total 724 1270 610 120 Output Total 700 1650 1100 500 Balance 24 -380 -490 -380 Weight 221 lb 5 oz 224 lb 10.417 oz 226 lb 221 lb 6.4 oz Last Vital Signs Temp Pulse Resp BP Pulse Ox 97.8 F 96 H 16 114/64 98 06/04/18 09:48 06/04/18 09:48 06/04/18 09:48 06/04/18 09:48 06/04/18 09:00 Active Medications Acetaminophen (Ofirmev Injection -) 1,000 mg IVPB Q6H PRN PRN Reason: HEADACHE Last Admin: 06/02/18 15:10 Dose: 1,000 mg Chlorhexidine Gluconate (Hibiclens For Decolonization -) 1 applic TP HS [facility] Last Admin: 06/03/18 21:50 Dose: 1 applic Glimepiride (Amaryl -) 2 mg PO DAILY@0700 [facility] Last Admin: 06/04/18 06:50 Dose: Not Given Pantoprazole Sodium 80 mg/ (Sodium Chloride) 100 mls @ 10 mls/hr IVPB Q10H [facility] Last Admin: 06/04/18 00:00 Dose: 10 mls/hr Insulin Aspart (Novolog Vial Sliding Scale -) 1 vial SQ ACHS [facility]; Protocol Last Admin: 06/04/18 06:50 Dose: 2 units Mupirocin (Bactroban Ointment (For Decolonization) -) 1 applic NS BID [facility] Stop: 06/07/18 21:59 Last Admin: 06/04/18 09:57 Dose: 1 applic Sitagliptin Phosphate (Januvia -) 50 mg PO DAILY@0700 [facility] Last Admin: 06/04/18 06:50 Dose: Not Given Sucralfate (Carafate Oral Suspension -) 1 gm PO QID [facility] Last Admin: 06/04/18 09:54 Dose: 1 gm GENERAL: NAD, awake, alert HEENT: Nc/At, Conjunctival pallor noted, dry mucosa NECK: Soft, No JVD LUNGS: Clear, (-) wheeze. No accessory muscle use. HEART: Regular rate and rhythm, normal S1 and S2 without murmur, rub or gallop. ABDOMEN: Soft, nondistended, tenderness to deep palpation LUQ and periumbilical region, (+) BS MUSCULOSKELETAL: No CVA tenderness. No joint effusions noted in knees or joints of hands. No sacral decubiti EXTREMITIES: 2+ DP pulses, warm, well-perfused. No cyanosis. Cap refill <2 seconds. No peripheral edema. NEUROLOGICAL: Nonfocal exam. PSYCHIATRIC: Cooperative. Good eye contact. Appropriate mood and affect. SKIN: Warm, dry, no rashes or lesions noted. Laboratory Results - last 24 hr 06/01/18 06/03/18 06/03/18 12:00 12:36 13:53 WBC 13.4 H RBC 2.66 L Hgb 7.7 L Hct 23.3 L D MCV 87.6 MCH 28.9 MCHC 33.0 RDW 16.3 H Plt Count 164 MPV 9.7 Absolute Neuts (auto) 10.0 Neutrophils % 74.6 Lymphocytes % 16.4 Monocytes % 7.8 Eosinophils % 0.7 Basophils % 0.5 Nucleated RBC % 0 Sodium Potassium Chloride Carbon Dioxide Anion Gap BUN Creatinine Creat Clearance w eGFR POC Glucometer 359.35831 Random Glucose Calcium Phosphorus Magnesium Total Bilirubin AST ALT Alkaline Phosphatase Total Protein Albumin Crossmatch See Detail 06/03/18 06/03/18 06/03/18 17:44 20:00 21:47 WBC 12.3 H RBC 2.58 L Hgb 7.5 L Hct 22.6 L MCV 87.8 MCH 28.9 MCHC 33.0 RDW 16.6 H Plt Count 175 MPV 9.7 Absolute Neuts (auto) 8.4 Neutrophils % 68.0 Lymphocytes % 21.1 D Monocytes % 8.8 Eosinophils % 1.4 D Basophils % 0.7 Nucleated RBC % 0 Sodium Potassium Chloride Carbon Dioxide Anion Gap BUN Creatinine Creat Clearance w eGFR POC Glucometer 205.93958 119.42053 Random Glucose Calcium Phosphorus Magnesium Total Bilirubin AST ALT Alkaline Phosphatase Total Protein Albumin Crossmatch 06/04/18 06/04/18 06/04/18 05:27 05:30 05:30 WBC 11.3 H RBC 2.52 L Hgb 7.3 L Hct 22.1 L MCV 87.6 MCH 29.0 MCHC 33.1 RDW 16.6 H Plt Count 179 MPV 9.6 Absolute Neuts (auto) 8.2 Neutrophils % 72.0 Lymphocytes % 17.0 Monocytes % 8.7 Eosinophils % 1.7 Basophils % 0.6 Nucleated RBC % 0 Sodium 141 Potassium 4.2 Chloride 109 H Carbon Dioxide 26 Anion Gap 6 L BUN 41 H D Creatinine 1.3 Creat Clearance w eGFR 52.22 POC Glucometer 176.12511 Random Glucose 144 H Calcium 8.0 L Phosphorus 2.6 Magnesium 2.1 Total Bilirubin 0.5 AST 25 ALT 23 D Alkaline Phosphatase 47 Total Protein 4.6 L Albumin 2.4 L Crossmatch 06/04/18 06:47 WBC RBC Hgb Hct MCV MCH MCHC RDW Plt Count MPV Absolute Neuts (auto) Neutrophils % Lymphocytes % Monocytes % Eosinophils % Basophils % Nucleated RBC % Sodium Potassium Chloride Carbon Dioxide Anion Gap BUN Creatinine Creat Clearance w eGFR POC Glucometer 179.89128 Random Glucose Calcium Phosphorus Magnesium Total Bilirubin AST ALT Alkaline Phosphatase Total Protein Albumin Crossmatch ASSESSMENT/PLAN: GI bleeding due to a duodenal ulcer AFib Demand Ischemia Mild Dementia MYLES Leukocytosis Normal transfusion thresholds O2 as needed SCD's for VTE prophylaxis Follow Renal function PPI PO per GI Floor Dr Nieto Critical care time spent in reviewing chart, evaluating patient and formulating plan - 36 minutes.
--- NOTE | 2018-06-04 12:29 | PN ---
Progress Note, Physician History of Present Illness: Chart reviewed. Events noted. Awake, alert. Appears comfortable. Hgb has been stable thus far. No stigmata of ongoing GI bleeding. - Current Medication List Current Medications: Active Medications Acetaminophen (Ofirmev Injection -) 1,000 mg IVPB Q6H PRN PRN Reason: HEADACHE Last Admin: 06/02/18 15:10 Dose: 1,000 mg Chlorhexidine Gluconate (Hibiclens For Decolonization -) 1 applic TP HS [facility] Last Admin: 06/03/18 21:50 Dose: 1 applic Ferrous Sulfate (Feosol -) 325 mg PO DAILY@0800 [facility] Glimepiride (Amaryl -) 2 mg PO DAILY@0700 [facility] Last Admin: 06/04/18 06:50 Dose: Not Given Insulin Aspart (Novolog Vial Sliding Scale -) 1 vial SQ [facility]; Protocol Last Admin: 06/04/18 11:29 Dose: 8 units Mupirocin (Bactroban Ointment (For Decolonization) -) 1 applic NS BID [facility] Stop: 06/07/18 21:59 Last Admin: 06/04/18 09:57 Dose: 1 applic Pantoprazole Sodium (Protonix -) 40 mg PO BID [facility] Sitagliptin Phosphate (Januvia -) 50 mg PO DAILY@0700 [facility] Last Admin: 06/04/18 06:50 Dose: Not Given Sucralfate (Carafate Oral Suspension -) 1 gm PO QID [facility] Last Admin: 06/04/18 09:54 Dose: 1 gm - Objective Vital Signs: Vital Signs Temperature 97.8 F 06/04/18 09:48 Pulse Rate 96 H 06/04/18 09:48 Respiratory Rate 18 06/04/18 11:00 Blood Pressure 112/70 06/04/18 11:00 O2 Sat by Pulse Oximetry (%) 98 06/04/18 09:00 Constitutional: Yes: Well Nourished, No Distress, Calm Eyes: No: Sclera Icterus HENT: Yes: Atraumatic Neck: Yes: Supple Cardiovascular: Yes: Regular Rate and Rhythm Respiratory: Yes: Regular Gastrointestinal: Yes: Normal Bowel Sounds, Soft. No: Melena, Rectal Bleeding, Tenderness, Vomiting Neurological: Yes: Alert Labs: CBC, BMP 06/04/18 05:30 06/04/18 05:30 INR, PTT INR 1.04 (0.82-1.09) 06/02/18 05:30 Laboratory Last Values WBC 11.3 K/mm3 (4.0-10.0) H 06/04/18 05:30 RBC 2.52 M/mm3 (4.00-5.60) L 06/04/18 05:30 Hgb 7.3 GM/dL (11.7-16.9) L 06/04/18 05:30 Hct 22.1 % (35.4-49) L 06/04/18 05:30 MCV 87.6 fl (80-96) 06/04/18 05:30 MCH 29.0 pg (25.7-33.7) 06/04/18 05:30 MCHC 33.1 g/dl (32.0-35.9) 06/04/18 05:30 RDW 16.6 % (11.9-15.9) H 06/04/18 05:30 Plt Count 179 K/MM3 (134-434) 06/04/18 05:30 MPV 9.6 fl (7.5-11.1) 06/04/18 05:30 Absolute Neuts (auto) 8.2 # 06/04/18 05:30 Total Counted 100 06/01/18 12:00 Neutrophils % 72.0 % (42.8-82.8) 06/04/18 05:30 Neutrophils % (Manual) 92.0 % (42.8-82.8) H 06/01/18 12:00 Lymphocytes % 17.0 % (8-40) 06/04/18 05:30 Lymphocytes % (Manual) 2.0 % (8-40) L 06/01/18 12:00 Monocytes % 8.7 % (3.8-10.2) 06/04/18 05:30 Monocytes % (Manual) 6 % (3.8-10.2) 06/01/18 12:00 Eosinophils % 1.7 % (0-4.5) 06/04/18 05:30 Basophils % 0.6 % (0-2.0) 06/04/18 05:30 Nucleated RBC % 0 % (0-0) 06/04/18 05:30 Platelet Estimate Adequate 06/01/18 12:00 Platelet Comment No clumping noted 06/01/18 12:00 PT with INR 11.70 SEC (9.7-13.0) 06/02/18 05:30 INR 1.04 (0.82-1.09) 06/02/18 05:30 PTT (Actin FS) 20.3 SECONDS (25.2-36.5) L 06/01/18 12:00 VBG pH 7.31 (7.32-7.42) L 06/01/18 12:35 POC VBG pCO2 31.3 mmHg (38-52) L 06/01/18 12:35 POC VBG pO2 43.3 mmHg (28-48) 06/01/18 12:35 Mixed VBG HCO3 15.3 meq/L (19-25) L 06/01/18 12:35 Sodium 141 mmol/L (136-145) 06/04/18 05:30 Potassium 4.2 mmol/L (3.5-5.1) 06/04/18 05:30 Chloride 109 mmol/L (98-107) H 06/04/18 05:30 Carbon Dioxide 26 mmol/L (21-32) 06/04/18 05:30 Anion Gap 6 (8-16) L 06/04/18 05:30 BUN 41 mg/dL (7-18) H D 06/04/18 05:30 Creatinine 1.3 mg/dL (0.7-1.3) 06/04/18 05:30 Creat Clearance w eGFR 52.22 (>60) 06/04/18 05:30 POC Glucometer 179.44832 UNITS (80-120) 06/04/18 06:47 Random Glucose 144 mg/dL (74-106) H 06/04/18 05:30 Hemoglobin A1c % 7.9 % (4.8-6.0) H D 06/03/18 05:30 Lactic Acid 3.0 mmol/L (0.0-2.0) H* 06/01/18 19:40 Calcium 8.0 mg/dL (8.5-10.1) L 06/04/18 05:30 Phosphorus 2.6 mg/dL (2.5-4.9) 06/04/18 05:30 Magnesium 2.1 mg/dL (1.8-2.4) 06/04/18 05:30 Total Bilirubin 0.5 mg/dL (0.2-1.0) 06/04/18 05:30 AST 25 U/L (15-37) 06/04/18 05:30 ALT 23 U/L (12-78) D 06/04/18 05:30 Alkaline Phosphatase 47 U/L (45-117) 06/04/18 05:30 Troponin I 0.04 ng/ml (0.00-0.05) 06/01/18 19:40 Total Protein 4.6 g/dl (6.4-8.2) L 06/04/18 05:30 Albumin 2.4 g/dl (3.4-5.0) L 06/04/18 05:30 Lipase 94 U/L (73-393) 06/01/18 12:00 Urine Color Straw 06/01/18 14:50 Urine Appearance Clear 06/01/18 14:50 Urine pH 5.0 (5.0-8.0) 06/01/18 14:50 Ur Specific [place] 1.017 (1.001-1.035) 06/01/18 14:50 Urine Protein Negative (NEGATIVE) 06/01/18 14:50 Urine Glucose (UA) 1+ (NEGATIVE) H 06/01/18 14:50 Urine Ketones Trace (NEGATIVE) H 06/01/18 14:50 Urine Blood Negative (NEGATIVE) 06/01/18 14:50 Urine Nitrite Negative (NEGATIVE) 06/01/18 14:50 Urine Bilirubin Negative (<2.0 mg/dL) 06/01/18 14:50 Urine Urobilinogen Negative mg/dL (0.2-1.0) 06/01/18 14:50 Ur Leukocyte Esterase Negative (NEGATIVE) 06/01/18 14:50 Stool Occult Blood Positive (NEGATIVE) 06/01/18 12:00 Acetone, Qual Trace (NEGATIVE) 06/01/18 12:00 Blood Type O POSITIVE 06/01/18 12:00 Antibody Screen Negative 06/01/18 12:00 Crossmatch See Detail 06/01/18 12:00 Problem List - Problems (1) Duodenal ulcer Code(s): K26.9 - DUODENAL ULCER, UNSP ACUTE OR CHRONIC, W/O HEMOR OR PERF (2) GI bleed Code(s): K92.2 - GASTROINTESTINAL HEMORRHAGE, UNSPECIFIED Qualifiers: GI bleed type/associated pathology: unspecified gastrointestinal hemorrhage type Qualified Code(s): K92.2 - Gastrointestinal hemorrhage, unspecified Assessment/Plan PPI PO BID, continue liquid carafate. Iron profile. Soft diet. Biopsies.
--- NOTE | 2018-06-04 12:40 | PATH ---
Surgical Pathology Report Patient Name: SAIDA MARS [facility]. Rec. #: [id number] /Age/Gender: 1930 (Age: 88) / M Account: [id number] Location: ICU DIRECTOR OF RESOURCE DEVELOPMENT Taken: 06/02/2018 Received: 06/03/2018 Reported: 06/04/2018 Physicians: Manas Man M.D. 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 IMMUNOHISTOCHEMICAL STAIN FOR H. PYLORI IS NEGATIVE. Electronically Signed Vera Burnham M.D. Gross Description Received in formalin, labeled "biopsy antrum/body" are 5 zuluaga, irregular portions of soft tissue ranging from 0.1-0.4 cm. in greatest dimension. The specimens are submitted in toto in one cassette. 06/03/201806/03/2018
--- NOTE | 2018-06-04 12:54 | PN ---
Progress Note (short form) - Note Progress Note: biopsy results noted. Problem List - Problems (1) Duodenal ulcer Code(s): K26.9 - DUODENAL ULCER, UNSP ACUTE OR CHRONIC, W/O HEMOR OR PERF (2) GI bleed Code(s): K92.2 - GASTROINTESTINAL HEMORRHAGE, UNSPECIFIED Qualifiers: GI bleed type/associated pathology: unspecified gastrointestinal hemorrhage type Qualified Code(s): K92.2 - Gastrointestinal hemorrhage, unspecified
[2018-06-04] MEDS ORDERED: ACETAMINOPHEN 500 MG TABLET (FP) PO ONE (14:27)
[2018-06-04] MEDS ORDERED: NITROGLYCERIN 25MG/D5W 250ML 25 MG/250 ML ML IVPB ONE (14:29)
[2018-06-04] MEDS ORDERED: ACETAMINOPHEN 1000 MG/100 ML VIAL (NON FORMULARY) IVPB ONE (14:45)
[2018-06-04] MEDS: FERROUS SO4 325 MG TABLET (FP) PO SCH (15:02)
--- NOTE | 2018-06-04 15:11 | ECHO ---
Name: SAIDA MARS Exam:Adult Echocardiogram Study Date: 06/04/2018 01:26 PM Age: 88 yrs Reason For Study: SOB Height: 72 in Weight: 221 lb BSA: 2.2 m2 MMode/2D Measurements & Calculations IVSd: 1.3 cm Ao root diam: 3.4 cm LVIDd: 5.3 cm LA dimension: 3.7 cm LVIDs: 3.6 cm LVPWd: 1.5 cm EDV(Teich): 134.7 ml ESV(Teich): 54.0 ml Doppler Measurements & Calculations MV E max nel: 63.1 cm/sec Ao V2 max: 169.6 cm/sec MV A max nel: 95.4 cm/sec Ao max P.5 mmHg MV E/A: 0.66 MV dec time: 0.12 sec MR max nel: 519.7 cm/sec TR max nel: 258.8 cm/sec MR max P.6 mmHg TR max P.8 mmHg Med Peak E' Nel: 7.5 cm/sec Med E/e': 8.5 Lat Peak E' Nel: 13.5 cm/sec Lat E/e': 4.7 Procedure A two-dimensional transthoracic echocardiogram with color flow and Doppler was performed. Left Ventricle There is mild concentric left ventricular hypertrophy. The left ventricular ejection fraction is norm al. E/A reversal consistent with but not diagnostic of poor LV compliance. Regional wall motion abnormalities cannot be excluded due to limited visualization. Right Ventricle The right ventricle is normal in size and function. Atria Normal left and right atrial size and function. Mitral Valve There is mild to moderate mitral valve thickening. Focal calcification of anterior leaflet of the MV . Cannot exclude vegetation. There is no mitral valve stenosis. There is mild mitral regurgitation. Tricuspid Valve The tricuspid valve is not well visualized. There is no tricuspid stenosis. There is mild tricuspid regurgitation. Right ventricular systolic pressure is normal. Aortic Valve The aortic valve is trileaflet. There is mild to moderate aortic valve thickening. There is mild to m oderate aortic sclerosis.;. No hemodynamically significant valvular aortic stenosis. No aortic regurgitation is present. Pulmonic Valve The pulmonic valve is not well visualized. There is no pulmonic valvular stenosis. There is no pulmon ic valvular regurgitation. Great Vessels The aortic root is normal size. Pericardium/Pleura There is no pericardial effusion. Interpretation Summary There is mild concentric left ventricular hypertrophy. The left ventricular ejection fraction is normal. E/A reversal consistent with but not diagnostic of poor LV compliance There is mild to moderate mitral valve thickening. There is mild mitral regurgitation. Regional wall motion abnormalities cannot be excluded due to limited visualization. Focal calcification of anterior leaflet of the MV . Cannot exclude vegetation. There is mild tricuspid regurgitation. Right ventricular systolic pressure is normal. MD Tai Duggan 06/04/2018 03:10 PM
[2018-06-04 18:23] LABS: HEMATOCRIT 24.2 % (35.4-49); MCH 29.8 pg (25.7-33.7); MCHC 33.2 g/dl (32.0-35.9); MEAN CELL VOLUME 89.7 fl (80-96); MEAN PLT VOLUME 9.3 fl (7.5-11.1); PLATELET COUNT 182 K/MM3 (134-434); RDW 16.5 % (11.9-15.9)
--- NOTE | 2018-06-04 19:37 | PN ---
Physical Exam: SUBJECTIVE: Patient seen and examined this am and evening in icu. Pt laying in bed comfortably. C/o lightheadedness when rising from supine position. Also c/ of shortness of breath. Denies arellano, fever, nausea, or cp. OBJECTIVE: Vital Signs Period Temp Pulse Resp BP Sys/Post Pulse Ox Last 24 Hr 97.8 F-98.7 F 82-98 16-20 100-134/40-80 98-99 GENERAL: AAOx1. NAD. HEAD: NC/AT EYES: EOMI ENT: MMM NECK: WNL LUNGS: CTA B/L HEART: RRR ABDOMEN: No HSM, ND, NT EXTREMITIES: No CCE NEUROLOGICAL: No focal deficits. SKIN: Anemic, pale. Laboratory Results - last 24 hr 06/01/18 06/03/18 06/03/18 12:00 20:00 21:47 WBC 12.3 H RBC 2.58 L Hgb 7.5 L Hct 22.6 L MCV 87.8 MCH 28.9 MCHC 33.0 RDW 16.6 H Plt Count 175 MPV 9.7 Absolute Neuts (auto) 8.4 Neutrophils % 68.0 Lymphocytes % 21.1 D Monocytes % 8.8 Eosinophils % 1.4 D Basophils % 0.7 Nucleated RBC % 0 Sodium Potassium Chloride Carbon Dioxide Anion Gap BUN Creatinine Creat Clearance w eGFR POC Glucometer 119.96410 Random Glucose Calcium Phosphorus Magnesium Total Bilirubin AST ALT Alkaline Phosphatase Total Protein Albumin Blood Type O POSITIVE Antibody Screen Negative Crossmatch See Detail 06/04/18 06/04/18 06/04/18 05:27 05:30 05:30 WBC 11.3 H RBC 2.52 L Hgb 7.3 L Hct 22.1 L MCV 87.6 MCH 29.0 MCHC 33.1 RDW 16.6 H Plt Count 179 MPV 9.6 Absolute Neuts (auto) 8.2 Neutrophils % 72.0 Lymphocytes % 17.0 Monocytes % 8.7 Eosinophils % 1.7 Basophils % 0.6 Nucleated RBC % 0 Sodium 141 Potassium 4.2 Chloride 109 H Carbon Dioxide 26 Anion Gap 6 L BUN 41 H D Creatinine 1.3 Creat Clearance w eGFR 52.22 POC Glucometer 176.36101 Random Glucose 144 H Calcium 8.0 L Phosphorus 2.6 Magnesium 2.1 Total Bilirubin 0.5 AST 25 ALT 23 D Alkaline Phosphatase 47 Total Protein 4.6 L Albumin 2.4 L Blood Type Antibody Screen Crossmatch 06/04/18 06/04/18 06/04/18 06:47 11:38 17:45 WBC 10.0 RBC 2.70 L Hgb 8.0 L Hct 24.2 L MCV 89.7 MCH 29.8 MCHC 33.2 RDW 16.5 H Plt Count 182 MPV 9.3 Absolute Neuts (auto) Neutrophils % Lymphocytes % Monocytes % Eosinophils % Basophils % Nucleated RBC % Sodium Potassium Chloride Carbon Dioxide Anion Gap BUN Creatinine Creat Clearance w eGFR POC Glucometer 179.92641 Random Glucose Calcium Phosphorus Magnesium Total Bilirubin AST ALT Alkaline Phosphatase Total Protein Albumin Blood Type O POSITIVE Antibody Screen Negative Crossmatch See Detail Active Medications Generic Name Dose Route Start Last Admin Trade Name Freq PRN Reason Stop Dose Admin Chlorhexidine Gluconate 1 applic 06/02/18 22:00 06/03/18 21:50 Hibiclens For Decolonization - TP 1 applic HS [facility] Administration Ferrous Sulfate 325 mg 06/04/18 12:00 06/04/18 15:02 Feosol - PO 325 mg DAILY@0800 [facility] Administration Glimepiride 2 mg 06/04/18 07:00 06/04/18 06:50 Amaryl - PO Not Given DAILY@0700 [facility] Insulin Aspart 1 vial 06/02/18 07:07 06/04/18 17:17 Novolog Vial Sliding Scale - SQ 4 units ACHS [facility] Administration Protocol Mupirocin 1 applic 06/02/18 22:00 06/04/18 09:57 Bactroban Ointment (For Decolonization) - NS 06/07/18 21:59 1 applic BID [facility] Administration Pantoprazole Sodium 40 mg 06/04/18 22:00 Protonix - PO BID [facility] Sitagliptin Phosphate 50 mg 06/04/18 07:00 06/04/18 06:50 Januvia - PO Not Given DAILY@0700 [facility] Sucralfate 1 gm 06/02/18 18:00 06/04/18 17:20 Carafate Oral Suspension - PO 1 gm QID [facility] Administration ASSESSMENT/PLAN: 88 y/o gentleman w/ pmh of diabetes mellitus, HTN, AFib (not on a/c), hyperlipidemia, rhabdomyolysis, dementia, bilateral knee replacements, and frequent falls. Neuro- AAOx1 Cardio: Echo Today 06/04/18---> Mild Concentric Left Ventricular Hypertrophy. Mild/ Moderate mitral valve thickening. Mild mitral regurg. Focal calcification of anterior leaflet of the MV, cannot exclude vegetation. Mild tricuspid regurg. Atrial Fibrillation -Not on any AC except for Aspirin 81 mg - EKG 06/01---> Right Bundle Branch Block Compared with EKG on 05/20---> PAC No longer present, Left anterior Fascicular block no longer present -Monitor on telemetry G.I Endoscopy with Dr Moreira which revealed an actively bleeding duodenal ulcer with adherent blood clot in the 1st portion of the duodenum. Epinephrine was injected and ulcer was coagulated with a heater probe. Drop of Hgb noted from 14.4 (May 17 2018). P t became lightheaded and sob today. 1 unit PRBC given to patient and Chest Xray ordered. Stool Occult blood positive Protonix gtt CT ---> diverticulosis Given 1 unit of PRBC today. HGB now 8. Chest X-Ray today---> Prominent mediastium w/ pleural calcifications. New congestive changes since previous chest xray 06/01/18. FEN No Fluids Monitor Electrolytes Soft Diet DVT ppx SCD's Dispo: Transfer to med-surg floor. Visit type - Emergency Visit Emergency Visit: Yes ED Registration Date: 06/01/18 Care time: The patient presented to the Emergency Department on the above date and was hospitalized for further evaluation of their emergent condition. - New Patient This patient is new to me today: No - Critical Care Critical Care patient: Yes Total Critical Care Time (in minutes): 36 Critical Care Statement: The care of this patient involved high complexity decision making to prevent further life threatening deterioration of the patient 's condition and/or to evaluate & treat vital organ system(s) failure or risk of failure.
[2018-06-04] MEDS: PANTOPRAZOLE 40 MG TABLET (FP) PO SCH (21:39)
[2018-06-04] MEDS: CHLORHEXIDINE GLUCONATE 4% CLEANSER FOR DECOLONIZATION TP SCH (21:39)
[2018-06-05] MEDS ORDERED: PT OWN MED DRAWER 7, Y5N ONE ×2 (06:25→17:43)
[2018-06-05] MEDS: INSULIN SLIDING SCALE (NOVOLOG) 1 VIAL SQ SCH ×3 (06:33→17:53)
[2018-06-05] MEDS: sitaGLIPtin PHOSPHATE 50 MG TABLET PO SCH (06:34)
[2018-06-05] MEDS: GLIMEPIRIDE 2 MG TABLET (FP) PO SCH (06:34)
[2018-06-05 06:42] LABS: BASO % 0.7 % (0-2.0); EOS % 2.5 % (0-4.5); HEMATOCRIT 22.8 % (35.4-49); HEMOGLOBIN 7.9 GM/dL (11.7-16.9); LYMPH % 25.4 % (8-40); MCH 30.7 pg (25.7-33.7); MCHC 34.5 g/dl (32.0-35.9); MEAN CELL VOLUME 88.8 fl (80-96); MEAN PLT VOLUME 9.6 fl (7.5-11.1); NEUT % 62.4 % (42.8-82.8); PLATELET COUNT 166 K/MM3 (134-434); RBC 2.56 M/mm3 (4.00-5.60); RDW 15.9 % (11.9-15.9); WHITE BLOOD COUNT 8.9 K/mm3 (4.0-10.0)
[2018-06-05 06:55] LABS: ALBUMIN 2.4 g/dl (3.4-5.0); ANION GAP 7 (8-16); BILIRUBIN,TOTAL 0.5 mg/dL (0.2-1.0); BLOOD UREA NITROGEN 25 mg/dL (7-18); CALCIUM 7.8 mg/dL (8.5-10.1); CHLORIDE 110 mmol/L (98-107); CO2 26 mmol/L (21-32); CREATININE 1.2 mg/dL (0.7-1.3); GLUCOSE,RANDOM 118 mg/dL (74-106); PHOSPHOROUS 2.8 mg/dL (2.5-4.9); POTASSIUM 4.2 mmol/L (3.5-5.1); SGOT/AST 20 U/L (15-37); SGPT/ALT 26 U/L (12-78); SODIUM 143 mmol/L (136-145); TOT PROT 4.6 g/dl (6.4-8.2)
[2018-06-05 06:59] LABS: ALK PHOS 53 U/L (45-117)
[2018-06-05] MEDS: FERROUS SO4 325 MG TABLET (FP) PO SCH (09:07)
[2018-06-05] MEDS: PANTOPRAZOLE 40 MG TABLET (FP) PO SCH (09:07)
[2018-06-05] MEDS: MUPIROCIN 2% TOPICAL OINTMENT FOR DECOLONIZATION NS SCH (09:08)
[2018-06-05] MEDS: SUCRALFATE 1 GM/10 ML UNIT DOSE CUPS PO SCH ×4 (09:08→21:29)
[2018-06-05] MEDS: PANTOPRAZOLE SODIUM 80 MG in SODIUM CHLORIDE 100 ML IVPB SCH (10:46)
--- NOTE | 2018-06-05 10:52 | PN ---
Progress Note, Physician Chief Complaint: decreased SOB c/o being dizzy when turning his head No chest discomfort has abdominal discomfort - Current Medication List Current Medications: Active Medications Chlorhexidine Gluconate (Hibiclens For Decolonization -) 1 applic TP HS [facility] Last Admin: 06/04/18 21:39 Dose: 1 applic Ferrous Sulfate (Feosol -) 325 mg PO DAILY@0800 [facility] Last Admin: 06/05/18 09:07 Dose: 325 mg Glimepiride (Amaryl -) 2 mg PO DAILY@07 [facility] Last Admin: 06/05/18 06:34 Dose: 2 mg Insulin Aspart (Novolog Vial Sliding Scale -) 1 vial SQ ACHS [facility]; Protocol Last Admin: 06/05/18 10:47 Dose: 6 units Mupirocin (Bactroban Ointment (For Decolonization) -) 1 applic NS BID [facility] Stop: 06/07/18 21:59 Last Admin: 06/05/18 09:08 Dose: 1 applic Pantoprazole Sodium (Protonix -) 40 mg PO BID [facility] Last Admin: 06/05/18 09:07 Dose: 40 mg Sitagliptin Phosphate (Januvia -) 50 mg PO DAILY@699 [facility] Last Admin: 06/05/18 06:34 Dose: 50 mg Sucralfate (Carafate Oral Suspension -) 1 gm PO QID [facility] Last Admin: 06/05/18 09:08 Dose: 1 gm - Objective Vital Signs: Vital Signs Temperature 98.4 F 06/05/18 06:00 Pulse Rate 87 06/05/18 08:00 Respiratory Rate 19 06/05/18 08:00 Blood Pressure 116/75 06/05/18 08:00 O2 Sat by Pulse Oximetry (%) 98 06/05/18 07:54 Constitutional: Yes: No Distress Cardiovascular: Yes: Regular Rate and Rhythm Respiratory: Yes: Diminished Gastrointestinal: Yes: Normal Bowel Sounds, Soft, Abdomen, Obese. No: Tenderness Edema: No Labs: CBC, BMP 06/05/18 05:30 06/05/18 05:30 INR, PTT INR 1.04 (0.82-1.09) 06/02/18 05:30 Problem List - Problems (1) GI bleed Code(s): K92.2 - GASTROINTESTINAL HEMORRHAGE, UNSPECIFIED Qualifiers: GI bleed type/associated pathology: unspecified gastrointestinal hemorrhage type Qualified Code(s): K92.2 - Gastrointestinal hemorrhage, unspecified (2) Hypotension Code(s): I95.9 - HYPOTENSION, UNSPECIFIED Qualifiers: Hypotension type: unspecified hypotension type Qualified Code(s): I95.9 - Hypotension, unspecified (3) Diabetes mellitus Code(s): E11.9 - TYPE 2 DIABETES MELLITUS WITHOUT COMPLICATIONS Qualifiers: Diabetes mellitus type: type 2 Diabetes mellitus intermediate insulin use: without intermediate use (4) HTN (hypertension) Code(s): I10 - ESSENTIAL (PRIMARY) HYPERTENSION Qualifiers: Hypertension type: essential hypertension Qualified Code(s): I10 - Essential (primary) hypertension (5) Hyperlipidemia Code(s): E78.5 - HYPERLIPIDEMIA, UNSPECIFIED (6) Acute blood loss anemia Code(s): D62 - ACUTE POSTHEMORRHAGIC ANEMIA Assessment/Plan PLAN Bleeding ulcer in duodenum on EGD- pathology results noted on Protonix po s/p PRBC repeat CBC in pm ?vertigo PT eval
--- NOTE | 2018-06-05 13:27 | PN ---
Teaching Attending Note Name of Resident: Mumtaz Enriquez ATTENDING PHYSICIAN STATEMENT I saw and evaluated the patient. I reviewed the resident's note and discussed the case with the resident. I agree with the resident's findings and plan as documented. SUBJECTIVE: Patient seen and examined in the ICU. Awake and alert. Denies CP or SOB. Denies abdominal pain. Slight decrease in H&H, but no occult bleeding. Still with some intermittent dizziness. Intake & Output 06/02/18 06/03/18 06/04/18 06/05/18 23:59 23:59 23:59 23:59 Intake Total 1270 610 760 280 Output Total 1650 1100 1200 450 Balance -380 -490 -440 -170 Weight 224 lb 10.417 oz 226 lb 221 lb 6.4 oz 221 lb 9.033 oz Last Vital Signs Temp Pulse Resp BP Pulse Ox 98.4 F 87 19 116/75 98 06/05/18 06:00 06/05/18 08:00 06/05/18 08:00 06/05/18 08:00 06/05/18 07:54 Active Medications Chlorhexidine Gluconate (Hibiclens For Decolonization -) 1 applic TP HS [facility] Last Admin: 06/04/18 21:39 Dose: 1 applic Ferrous Sulfate (Feosol -) 325 mg PO DAILY@0800 [facility] Last Admin: 06/05/18 09:07 Dose: 325 mg Glimepiride (Amaryl -) 2 mg PO DAILY@0700 [facility] Last Admin: 06/05/18 06:34 Dose: 2 mg Insulin Aspart (Novolog Vial Sliding Scale -) 1 vial SQ ACHS [facility]; Protocol Last Admin: 06/05/18 10:47 Dose: 6 units Mupirocin (Bactroban Ointment (For Decolonization) -) 1 applic NS BID [facility] Stop: 06/07/18 21:59 Last Admin: 06/05/18 09:08 Dose: 1 applic Pantoprazole Sodium (Protonix -) 40 mg PO BID [facility] Last Admin: 06/05/18 09:07 Dose: 40 mg Sucralfate (Carafate Oral Suspension -) 1 gm PO QID [facility] Last Admin: 06/05/18 09:08 Dose: 1 gm GENERAL: NAD, awake, alert HEENT: Nc/At, Conjunctival pallor noted, dry mucosa NECK: Soft, No JVD LUNGS: Clear, (-) wheeze. No accessory muscle use. HEART: Regular rate and rhythm, normal S1 and S2 without murmur, rub or gallop. ABDOMEN: Soft, nondistended, tenderness to deep palpation LUQ and periumbilical region, (+) BS MUSCULOSKELETAL: No CVA tenderness. No joint effusions noted in knees or joints of hands. No sacral decubiti EXTREMITIES: 2+ DP pulses, warm, well-perfused. No cyanosis. Cap refill <2 seconds. No peripheral edema. NEUROLOGICAL: Nonfocal exam. PSYCHIATRIC: Cooperative. Good eye contact. Appropriate mood and affect. SKIN: Warm, dry, no rashes or lesions noted. Laboratory Results - last 24 hr 06/01/18 06/04/18 06/04/18 12:00 11:25 11:38 WBC RBC Hgb Hct MCV MCH MCHC RDW Plt Count MPV Absolute Neuts (auto) Neutrophils % Lymphocytes % Monocytes % Eosinophils % Basophils % Nucleated RBC % Sodium Potassium Chloride Carbon Dioxide Anion Gap BUN Creatinine Creat Clearance w eGFR POC Glucometer [phone] Random Glucose Calcium Phosphorus Magnesium Ferritin Total Bilirubin AST ALT Alkaline Phosphatase Total Protein Albumin Blood Type O POSITIVE O POSITIVE Antibody Screen Negative Negative Crossmatch See Detail See Detail 06/04/18 06/04/18 06/04/18 14:35 17:13 17:45 WBC 10.0 RBC 2.70 L Hgb 8.0 L Hct 24.2 L MCV 89.7 MCH 29.8 MCHC 33.2 RDW 16.5 H Plt Count 182 MPV 9.3 Absolute Neuts (auto) Neutrophils % Lymphocytes % Monocytes % Eosinophils % Basophils % Nucleated RBC % Sodium Potassium Chloride Carbon Dioxide Anion Gap BUN Creatinine Creat Clearance w eGFR POC Glucometer 304.11641 259.64769 Random Glucose Calcium Phosphorus Magnesium Ferritin Total Bilirubin AST ALT Alkaline Phosphatase Total Protein Albumin Blood Type Antibody Screen Crossmatch 06/04/18 06/05/18 06/05/18 21:35 05:30 05:30 WBC 8.9 RBC 2.56 L Hgb 7.9 L Hct 22.8 L MCV 88.8 MCH 30.7 MCHC 34.5 RDW 15.9 Plt Count 166 MPV 9.6 Absolute Neuts (auto) 5.6 Neutrophils % 62.4 Lymphocytes % 25.4 D Monocytes % 9.0 Eosinophils % 2.5 Basophils % 0.7 Nucleated RBC % 0 Sodium 143 Potassium 4.2 Chloride 110 H Carbon Dioxide 26 Anion Gap 7 L BUN 25 H Creatinine 1.2 Creat Clearance w eGFR 57.27 POC Glucometer [phone] Random Glucose 118 H Calcium 7.8 L Phosphorus 2.8 Magnesium 2.0 Ferritin 470.3 H Total Bilirubin 0.5 AST 20 ALT 26 Alkaline Phosphatase 53 Total Protein 4.6 L Albumin 2.4 L Blood Type Antibody Screen Crossmatch 06/05/18 10:44 WBC RBC Hgb Hct MCV MCH MCHC RDW Plt Count MPV Absolute Neuts (auto) Neutrophils % Lymphocytes % Monocytes % Eosinophils % Basophils % Nucleated RBC % Sodium Potassium Chloride Carbon Dioxide Anion Gap BUN Creatinine Creat Clearance w eGFR POC Glucometer 260.71272 Random Glucose Calcium Phosphorus Magnesium Ferritin Total Bilirubin AST ALT Alkaline Phosphatase Total Protein Albumin Blood Type Antibody Screen Crossmatch ASSESSMENT/PLAN: GI bleeding due to a duodenal ulcer AFib Demand Ischemia Mild Dementia MYLES Leukocytosis (?) Vertigo Normal transfusion thresholds O2 as needed SCD's for VTE prophylaxis Follow Renal function PPI PO per GI Check Orthostatics Floor Fall precautions Dr Nieto Critical care time spent in reviewing chart, evaluating patient and formulating plan - 36 minutes.
[2018-06-05] MEDS ORDERED: HEMOQUE TEST 1 EACH EACH ONE (17:44)
--- NOTE | 2018-06-05 17:45 | PN ---
Physical Exam: SUBJECTIVE: Patient seen and examined this am and evening in icu. C/o lightheadedness, sob and abdominal pain. Sitting in chair at bedside. Denies cp , headache, nausea, or vomiting. OBJECTIVE: Vital Signs Period Temp Pulse Resp BP Sys/Psot Pulse Ox Last 24 Hr 97.9 F-98.4 F 86-95 11-22 105-122/56-88 98-98 GENERAL: HEAD: NC/AT EYES: EOMI ENT: MMM NECK: WNL LUNGS: CTA B/L HEART: RRR ABDOMEN: No HSM, Tender to palpation. EXTREMITIES: No CCE. Bruising on right hand and arm. NEUROLOGICAL: No focal deficits. SKIN: Anemic, pale. Laboratory Results - last 24 hr 06/01/18 06/04/18 06/04/18 12:00 11:25 14:35 WBC RBC Hgb Hct MCV MCH MCHC RDW Plt Count MPV Absolute Neuts (auto) Neutrophils % Lymphocytes % Monocytes % Eosinophils % Basophils % Nucleated RBC % Sodium Potassium Chloride Carbon Dioxide Anion Gap BUN Creatinine Creat Clearance w eGFR POC Glucometer 367.33619 304.10632 Random Glucose Calcium Phosphorus Magnesium Ferritin Total Bilirubin AST ALT Alkaline Phosphatase Total Protein Albumin Blood Type O POSITIVE Antibody Screen Negative Crossmatch See Detail 06/04/18 06/04/18 06/04/18 17:13 17:45 21:35 WBC 10.0 RBC 2.70 L Hgb 8.0 L Hct 24.2 L MCV 89.7 MCH 29.8 MCHC 33.2 RDW 16.5 H Plt Count 182 MPV 9.3 Absolute Neuts (auto) Neutrophils % Lymphocytes % Monocytes % Eosinophils % Basophils % Nucleated RBC % Sodium Potassium Chloride Carbon Dioxide Anion Gap BUN Creatinine Creat Clearance w eGFR POC Glucometer 259.55947 213.46516 Random Glucose Calcium Phosphorus Magnesium Ferritin Total Bilirubin AST ALT Alkaline Phosphatase Total Protein Albumin Blood Type Antibody Screen Crossmatch 06/05/18 06/05/18 06/05/18 05:30 05:30 10:44 WBC 8.9 RBC 2.56 L Hgb 7.9 L Hct 22.8 L MCV 88.8 MCH 30.7 MCHC 34.5 RDW 15.9 Plt Count 166 MPV 9.6 Absolute Neuts (auto) 5.6 Neutrophils % 62.4 Lymphocytes % 25.4 D Monocytes % 9.0 Eosinophils % 2.5 Basophils % 0.7 Nucleated RBC % 0 Sodium 143 Potassium 4.2 Chloride 110 H Carbon Dioxide 26 Anion Gap 7 L BUN 25 H Creatinine 1.2 Creat Clearance w eGFR 57.27 POC Glucometer [phone] Random Glucose 118 H Calcium 7.8 L Phosphorus 2.8 Magnesium 2.0 Ferritin 470.3 H Total Bilirubin 0.5 AST 20 ALT 26 Alkaline Phosphatase 53 Total Protein 4.6 L Albumin 2.4 L Blood Type Antibody Screen Crossmatch Active Medications Generic Name Dose Route Start Last Admin Trade Name Prashant PRN Reason Stop Dose Admin Ferrous Sulfate 325 mg 06/06/18 08:00 Feosol - PO DAILY@0800 [facility] Glimepiride 2 mg 06/06/18 07:00 Amaryl - PO DAILY@0700 [facility] Insulin Aspart 1 vial 06/05/18 22:00 Novolog Vial Sliding Scale - SQ ACHS [facility] Protocol Pantoprazole Sodium 40 mg 06/05/18 22:00 Protonix - PO BID [facility] Sucralfate 1 gm 06/05/18 18:00 Carafate Oral Suspension - PO QID [facility] ASSESSMENT/PLAN: 88 y/o gentleman w/ pmh of diabetes mellitus, HTN, AFib (not on a/c), hyperlipidemia, rhabdomyolysis, dementia, bilateral knee replacements, and frequent falls. Neuro- More oriented today 06/05/18. Engages in conversation, appropriate affect and mood. Cardio: Echo 06/04/18---> Mild Concentric Left Ventricular Hypertrophy. Mild/Moderate mitral valve thickening. Mild mitral regurg. Focal calcification of anterior leaflet of the MV, cannot exclude vegetation. Mild tricuspid regurg. Atrial Fibrillation -Not on any AC except for Aspirin 81 mg - EKG 06/01---> Right Bundle Branch Block Compared with EKG on 05/20---> PAC No longer present, Left anterior Fascicular block no longer present -Monitor on telemetry G.I Endoscopy with Dr Moreira which revealed an actively bleeding duodenal ulcer with adherent blood clot in the 1st portion of the duodenum. Epinephrine was injected and ulcer was coagulated with a heater probe. Pt became lightheaded and sob today again. 1 unit PRBC given to patient given to patient yesterday 06/04/18. Repeat CBC this evening. Will receive 1 unit of PRBC this evening. HGB now 7.9. Chest X-Ray today---> Prominent mediastium w/ pleural calcifications. New congestive changes since previous chest xray 06/01/18. Contine w/ Protonix gtt FEN No Fluids Monitor Electrolytes Soft Diet DVT ppx SCD's Dispo: Transfer to med-surg floor. Visit type - Emergency Visit Emergency Visit: Yes ED Registration Date: 06/01/18 Care time: The patient presented to the Emergency Department on the above date and was hospitalized for further evaluation of their emergent condition. - New Patient This patient is new to me today: No - Critical Care Critical Care patient: Yes Total Critical Care Time (in minutes): 36 Critical Care Statement: The care of this patient involved high complexity decision making to prevent further life threatening deterioration of the patient 's condition and/or to evaluate & treat vital organ system(s) failure or risk of failure.
--- NOTE | 2018-06-05 18:08 | PN ---
Physical Exam: SUBJECTIVE: Patient seen and examined OBJECTIVE: Vital Signs Period Temp Pulse Resp BP Sys/Post Pulse Ox Last 24 Hr 97.9 F-98.4 F 86-95 11-22 105-122/56-88 98-98 GENERAL: The patient is awake, alert, and fully oriented, in no acute distress. HEAD: Normal with no signs of trauma. EYES: PERRL, extraocular movements intact, sclera anicteric, conjunctiva clear. No ptosis. ENT: Ears normal, nares patent, oropharynx clear without exudates, moist mucous membranes. NECK: Trachea midline, full range of motion, supple. LUNGS: Breath sounds equal, clear to auscultation bilaterally, no wheezes, no crackles, no accessory muscle use. HEART: Regular rate and rhythm, S1, S2 without murmur, rub or gallop. ABDOMEN: Soft, nontender, nondistended, normoactive bowel sounds, no guarding, no rebound, no hepatosplenomegaly, no masses. EXTREMITIES: 2+ pulses, warm, well-perfused, no edema. NEUROLOGICAL: Cranial nerves II through XII grossly intact. Normal speech, gait not observed. PSYCH: Normal mood, normal affect. SKIN: Warm, dry, normal turgor, no rashes or lesions noted Laboratory Results - last 24 hr 06/01/18 06/04/18 06/04/18 12:00 11:25 14:35 WBC RBC Hgb Hct MCV MCH MCHC RDW Plt Count MPV Absolute Neuts (auto) Neutrophils % Lymphocytes % Monocytes % Eosinophils % Basophils % Nucleated RBC % Sodium Potassium Chloride Carbon Dioxide Anion Gap BUN Creatinine Creat Clearance w eGFR POC Glucometer 367.42882 304.55731 Random Glucose Calcium Phosphorus Magnesium Ferritin Total Bilirubin AST ALT Alkaline Phosphatase Total Protein Albumin Blood Type O POSITIVE Antibody Screen Negative Crossmatch See Detail 06/04/18 06/04/18 06/04/18 17:13 17:45 21:35 WBC 10.0 RBC 2.70 L Hgb 8.0 L Hct 24.2 L MCV 89.7 MCH 29.8 MCHC 33.2 RDW 16.5 H Plt Count 182 MPV 9.3 Absolute Neuts (auto) Neutrophils % Lymphocytes % Monocytes % Eosinophils % Basophils % Nucleated RBC % Sodium Potassium Chloride Carbon Dioxide Anion Gap BUN Creatinine Creat Clearance w eGFR POC Glucometer 259.22848 213.59533 Random Glucose Calcium Phosphorus Magnesium Ferritin Total Bilirubin AST ALT Alkaline Phosphatase Total Protein Albumin Blood Type Antibody Screen Crossmatch 06/05/18 06/05/18 06/05/18 05:30 05:30 10:44 WBC 8.9 RBC 2.56 L Hgb 7.9 L Hct 22.8 L MCV 88.8 MCH 30.7 MCHC 34.5 RDW 15.9 Plt Count 166 MPV 9.6 Absolute Neuts (auto) 5.6 Neutrophils % 62.4 Lymphocytes % 25.4 D Monocytes % 9.0 Eosinophils % 2.5 Basophils % 0.7 Nucleated RBC % 0 Sodium 143 Potassium 4.2 Chloride 110 H Carbon Dioxide 26 Anion Gap 7 L BUN 25 H Creatinine 1.2 Creat Clearance w eGFR 57.27 POC Glucometer 260.59984 Random Glucose 118 H Calcium 7.8 L Phosphorus 2.8 Magnesium 2.0 Ferritin 470.3 H Total Bilirubin 0.5 AST 20 ALT 26 Alkaline Phosphatase 53 Total Protein 4.6 L Albumin 2.4 L Blood Type Antibody Screen Crossmatch Active Medications Generic Name Dose Route Start Last Admin Trade Name Freq PRN Reason Stop Dose Admin Ferrous Sulfate 325 mg 06/06/18 08:00 Feosol - PO DAILY@0800 [facility] Glimepiride 2 mg 06/06/18 07:00 Amaryl - PO DAILY@0700 [facility] Insulin Aspart 1 vial 06/05/18 22:00 Novolog Vial Sliding Scale - SQ ACHS [facility] Protocol Pantoprazole Sodium 40 mg 06/05/18 22:00 Protonix - PO BID [facility] Sucralfate 1 gm 06/05/18 18:00 06/05/18 17:46 Carafate Oral Suspension - PO 1 gm QID [facility] Administration ASSESSMENT/PLAN:
[2018-06-05 20:44] LABS: HEMATOCRIT 24.4 % (35.4-49); HEMOGLOBIN 8.3 GM/dL (11.7-16.9); MCH 30.4 pg (25.7-33.7); MCHC 33.8 g/dl (32.0-35.9); MEAN CELL VOLUME 89.9 fl (80-96); MEAN PLT VOLUME 9.7 fl (7.5-11.1); PLATELET COUNT 199 K/MM3 (134-434); RBC 2.72 M/mm3 (4.00-5.60); WHITE BLOOD COUNT 9.7 K/mm3 (4.0-10.0)
[2018-06-05] MEDS ORDERED: PANTOPRAZOLE 40 MG TABLET (FP) PO SCH (22:00)
[2018-06-05] MEDS ORDERED: INSULIN SLIDING SCALE (NOVOLOG) 1 VIAL SQ SCH (22:00)
[2018-06-06 06:06] LABS: SERUM IRON SATURATION 11 % (15-55); TOTAL IRON BINDING CAPACITY 224 ug/dL (250-450); UIBC 199 ug/dL (111-343)
[2018-06-06] MEDS: GLIMEPIRIDE 2 MG TABLET (FP) PO SCH (06:41)
[2018-06-06] MEDS: INSULIN SLIDING SCALE (NOVOLOG) 1 VIAL SQ SCH ×4 (06:48→21:04)
[2018-06-06] MEDS ORDERED: GLIMEPIRIDE 2 MG TABLET (FP) PO SCH (07:00)
[2018-06-06 07:59] LABS: BASO % 0.8 % (0-2.0); EOS % 2.7 % (0-4.5); HEMATOCRIT 24.6 % (35.4-49); HEMOGLOBIN 8.4 GM/dL (11.7-16.9); LYMPH % 17.7 % (8-40); MCH 30.9 pg (25.7-33.7); MCHC 34.2 g/dl (32.0-35.9); MEAN CELL VOLUME 90.2 fl (80-96); MEAN PLT VOLUME 9.2 fl (7.5-11.1); MONO % 8.5 % (3.8-10.2); NEUT % 70.3 % (42.8-82.8); PLATELET COUNT 199 K/MM3 (134-434); RBC 2.73 M/mm3 (4.00-5.60); RDW 16.1 % (11.9-15.9)
[2018-06-06] MEDS ORDERED: FERROUS SO4 325 MG TABLET (FP) PO SCH (08:00)
[2018-06-06 08:08] LABS: ALBUMIN 2.6 g/dl (3.4-5.0); ALK PHOS 63 U/L (45-117); ANION GAP 8 (8-16); BILIRUBIN,TOTAL 0.5 mg/dL (0.2-1.0); BLOOD UREA NITROGEN 19 mg/dL (7-18); CALCIUM 8.2 mg/dL (8.5-10.1); CHLORIDE 108 mmol/L (98-107); CO2 26 mmol/L (21-32); CREATININE 1.3 mg/dL (0.7-1.3); GLUCOSE,RANDOM 137 mg/dL (74-106); MAGNESIUM 1.9 mg/dL (1.8-2.4); PHOSPHOROUS 2.8 mg/dL (2.5-4.9); POTASSIUM 4.4 mmol/L (3.5-5.1); SGOT/AST 19 U/L (15-37); SGPT/ALT 25 U/L (12-78); SODIUM 142 mmol/L (136-145); TOT PROT 4.8 g/dl (6.4-8.2)
[2018-06-06] MEDS ORDERED: PT OWN MED DRAWER 7, Y5N ONE (10:12)
[2018-06-06] MEDS: SUCRALFATE 1 GM/10 ML UNIT DOSE CUPS PO SCH ×4 (10:14→21:05)
[2018-06-06] MEDS: FERROUS SO4 325 MG TABLET (FP) PO SCH (10:14)
[2018-06-06] MEDS: PANTOPRAZOLE 40 MG TABLET (FP) PO SCH ×2 (10:14→21:05)
--- NOTE | 2018-06-06 14:29 | PN ---
Progress Note (short form) - Note Progress Note: NO events. Comfortable. Benigns abdominal exam. HGB stable w/o stigmata of ongoing GI bleeding. Continue current care. Problem List - Problems (1) Duodenal ulcer Code(s): K26.9 - DUODENAL ULCER, UNSP ACUTE OR CHRONIC, W/O HEMOR OR PERF (2) GI bleed Code(s): K92.2 - GASTROINTESTINAL HEMORRHAGE, UNSPECIFIED Qualifiers: GI bleed type/associated pathology: unspecified gastrointestinal hemorrhage type Qualified Code(s): K92.2 - Gastrointestinal hemorrhage, unspecified
--- NOTE | 2018-06-06 16:28 | PN ---
Progress Note, Physician Chief Complaint: Gets dizzy when moving his head has upper abdominal pain no nausea no chest pain no SOB - Current Medication List Current Medications: Active Medications Ferrous Sulfate (Feosol -) 325 mg PO DAILY@0800 [facility] Last Admin: 06/06/18 10:14 Dose: 325 mg Glimepiride (Amaryl -) 2 mg PO DAILY@0700 [facility] Last Admin: 06/06/18 06:41 Dose: 2 mg Insulin Aspart (Novolog Vial Sliding Scale -) 1 vial SQ ACHS [facility]; Protocol Last Admin: 06/06/18 11:49 Dose: 2 units Meclizine HCl (Antivert -) 12.5 mg PO Q6H PRN PRN Reason: VERTIGO Pantoprazole Sodium (Protonix -) 40 mg PO BID [facility] Last Admin: 06/06/18 10:14 Dose: 40 mg Sucralfate (Carafate Oral Suspension -) 1 gm PO QID [facility] Last Admin: 06/06/18 14:16 Dose: 1 gm - Objective Vital Signs: Vital Signs Temperature 98.2 F 06/06/18 15:49 Pulse Rate 105 H 06/06/18 15:49 Respiratory Rate 18 06/06/18 15:49 Blood Pressure 113/62 06/06/18 15:49 O2 Sat by Pulse Oximetry (%) 97 06/06/18 09:00 Constitutional: Yes: No Distress, Calm Cardiovascular: Yes: Regular Rate and Rhythm Respiratory: Yes: Diminished Gastrointestinal: Yes: Normal Bowel Sounds, Soft, Tenderness, Epigastrium. No: Distention Edema: No Labs: CBC, BMP 06/06/18 07:30 06/06/18 07:30 INR, PTT INR 1.04 (0.82-1.09) 06/02/18 05:30 Problem List - Problems (1) GI bleed Code(s): K92.2 - GASTROINTESTINAL HEMORRHAGE, UNSPECIFIED Qualifiers: GI bleed type/associated pathology: unspecified gastrointestinal hemorrhage type Qualified Code(s): K92.2 - Gastrointestinal hemorrhage, unspecified (2) Hypotension Code(s): I95.9 - HYPOTENSION, UNSPECIFIED Qualifiers: Hypotension type: unspecified hypotension type Qualified Code(s): I95.9 - Hypotension, unspecified (3) Diabetes mellitus Code(s): E11.9 - TYPE 2 DIABETES MELLITUS WITHOUT COMPLICATIONS Qualifiers: Diabetes mellitus type: type 2 Diabetes mellitus watermaster insulin use: without watermaster use (4) HTN (hypertension) Code(s): I10 - ESSENTIAL (PRIMARY) HYPERTENSION Qualifiers: Hypertension type: essential hypertension Qualified Code(s): I10 - Essential (primary) hypertension (5) Hyperlipidemia Code(s): E78.5 - HYPERLIPIDEMIA, UNSPECIFIED (6) Acute blood loss anemia Code(s): D62 - ACUTE POSTHEMORRHAGIC ANEMIA Assessment/Plan PLAN Bleeding ulcer in duodenum on EGD- pathology results noted epigastric tenderness due to ulcer Echo results reviewed- has diastolic dysfunction, unlikely to have vegetations as his blood cultures are negative repeat CXR Check CT head as pt c/o dizziness, likely due to anemia on Protonix po s/p PRBC repeat CBC in pm ?vertigo PT gumaro spoke with pt's son
[2018-06-06] MEDS ORDERED: INSULIN (NOVOLOG) ASPART 100 UNITS/ML 10ML VIAL ONE (16:59)
[2018-06-07] MEDS ORDERED: PT OWN MED DRAWER 7, Y5N ONE (05:58)
[2018-06-07] MEDS: INSULIN SLIDING SCALE (NOVOLOG) 1 VIAL SQ SCH ×4 (06:25→21:29)
[2018-06-07] MEDS: GLIMEPIRIDE 2 MG TABLET (FP) PO SCH (06:26)
[2018-06-07 06:51] LABS: HEMATOCRIT 24.6 % (35.4-49); HEMOGLOBIN 8.5 GM/dL (11.7-16.9); MCH 30.9 pg (25.7-33.7); MCHC 34.5 g/dl (32.0-35.9); MEAN CELL VOLUME 89.5 fl (80-96); MEAN PLT VOLUME 9.1 fl (7.5-11.1); PLATELET COUNT 199 K/MM3 (134-434); RBC 2.74 M/mm3 (4.00-5.60); RDW 16.5 % (11.9-15.9); WHITE BLOOD COUNT 8.1 K/mm3 (4.0-10.0)
[2018-06-07] MEDS: FERROUS SO4 325 MG TABLET (FP) PO SCH (08:40)
[2018-06-07] MEDS: PANTOPRAZOLE 40 MG TABLET (FP) PO SCH ×2 (09:55→21:29)
[2018-06-07] MEDS: SUCRALFATE 1 GM/10 ML UNIT DOSE CUPS PO SCH ×4 (09:55→21:29)
--- NOTE | 2018-06-07 11:19 | DS ---
Physical Examination Vital Signs: Vital Signs Temperature 98.2 F 06/07/18 09:00 Pulse Rate 97 H 06/07/18 09:00 Respiratory Rate 18 06/07/18 09:00 Blood Pressure 154/87 06/07/18 09:00 O2 Sat by Pulse Oximetry (%) 96 06/06/18 21:00 Constitutional: Yes: No Distress, Calm Cardiovascular: Yes: Regular Rate and Rhythm Respiratory: Yes: CTA Bilaterally Gastrointestinal: Yes: Normal Bowel Sounds, Soft, Abdomen, Obese, Tenderness, Epigastrium Edema: No Labs: CBC, BMP 06/07/18 06:00 06/06/18 07:30 Discharge Summary Reason For Visit: GI HEMORRAGE, HYPOTENSION Current Active Problems Acute blood loss anemia (Acute) Duodenal ulcer (Acute) GI bleed (Acute) Hypotension (Acute) Hospital Course: Admission Note- - Admission History of Present Illness: Pt seen/ examined in icu Chart reviewed Case discussed with icu team/ resident. In summary- 88yo M h/o mild dementia, Afib (only on ASA), HTn, DM and a prior visit due to a fall who presents today due to shortness of breath and lightheadedness. Pt also endorses having this gnawing abdominal pain most notably in his umbilical region. Pt reports he frequently has some burning substernal pain all the way to his neck. This pain is most notable at night when he is laying flat and not correlated with activity during the day or radiation. in addition, pt has had black stools for the past few days, however has never noted overt blood with any bowel movements. Currently pt feels "off" including being lightheaded, however his work of breathing has improved. ER Course: 1) Protonix gtt initiated 2) CTAP to be performed 3) LA of 6.1 4) Drop of Hgb noted from 14.4 (May 17 2018) to now 8.2 today 5) CXR - w/o any acute pathology 5) Hemoccult positive Pt admitted to icu on protonix drip for endo today pt as such alert/ awake Hospital Course Pt admitted to ICU- seen by GI Was transfused 4 units PRBC EGD done- duodenal ulcer--> Actively bleeding duodenal ulcer with adherent blood clot in the 1st portion of the duodenum was found, injected with epi and coagulated with a heater probe. Hb steadily rising Pt is on Protonix BID Spoke with pt's son CT head was done as he c/o dizziness-- Negative head CT. Possible anemia related , vertigo repeat CXR- no congestion or infiltrate Pathology negative stable for dc to NH Condition: Improved - Instructions Referrals: Eduardo Bearden MD [Primary Care Provider] - Disposition: LONG-TERM FACILITY - Home Medications Comprehensive Discharge Medication List: Ambulatory Orders Atorvastatin Ca [Lipitor] 10 mg PO HS #20 tablet 05/21/18 Lisinopril [Prinivil] 5 mg PO DAILY #30 tablet 05/21/18 Aspirin 81 mg PO DAILY #30 tab.chew 05/23/18 Glipizide [Glucotrol -] 5 mg PO DAILY@0700 tablet 05/23/18 metFORMIN HCL [Glucophage -] 1,000 mg PO BID@0700,1630 tablet 05/23/18 Acetaminophen [Tylenol .Regular Strength -] 650 mg PO Q6H PRN 06/01/18 Benzocaine/Menthol [Cepacol Sore Throat Lozenge] 1 each MM ASDIR 06/01/18 Cholecalciferol (Vitamin D3) [Vitamin D3] 5,000 unit PO DAILY 06/01/18 Mag Hydrox/Al Hydrox/Simeth [Mylanta Oral Suspension -] 30 ml PO Q4HWA PRN 06/01 Multivit-Min/Iron Fum/Folic AC [Avhki-Zhdzemg-Zyiqsswm Tablet] 1 each PO DAILY 06/01/18 Nystatin Cream [Mycostatin] 1 applic TP BID 06/01/18 Triamcinolone 0.1% Cream [Aristocort] 0 gm TP BID 06/01/18
[2018-06-07] MEDS: MECLIZINE HCL 12.5 MG TABLET PO PRN ×2 (13:52→21:29)
[2018-06-07] MEDS ORDERED: INSULIN (NOVOLOG) ASPART 100 UNITS/ML 10ML VIAL ONE (21:12)
[2018-06-08] MEDS: GLIMEPIRIDE 2 MG TABLET (FP) PO SCH ×2 (06:24→06:42)
[2018-06-08] MEDS: INSULIN SLIDING SCALE (NOVOLOG) 1 VIAL SQ SCH ×2 (06:24→06:42)
[2018-06-08 06:33] VITALS: TEMP 97.8
[2018-06-08] MEDS ORDERED: INSULIN (NOVOLOG) ASPART 100 UNITS/ML 10ML VIAL ONE (07:05)
--- NOTE | 2018-06-08 10:52 | PN ---
Progress Note (short form) - Note Progress Note: Waiting for dc to NH He is well has pain on epigastrium only on palpation eating better denies any complaints Vital Signs - 24 hr 06/07/18 06/07/18 06/07/18 15:56 18:00 21:00 Temperature 98.5 F 98.2 F 97.6 F Pulse Rate 76 105 H 110 H Respiratory 18 18 20 Rate Blood Pressure 136/79 137/78 150/80 O2 Sat by Pulse 97 Oximetry (%) 06/07/18 06/08/18 06/08/18 23:00 01:33 06:31 Temperature 97.6 F 97.8 F Pulse Rate 98 H 96 H 91 H Respiratory 19 18 Rate Blood Pressure 124/76 132/72 O2 Sat by Pulse Oximetry (%) Current Medications Generic Name Dose Route Start Last Admin Trade Name Freq PRN Reason Stop Dose Admin Ferrous Sulfate 325 mg 06/06/18 08:00 06/07/18 08:40 Feosol - PO 325 mg DAILY@0800 [facility] Administration Glimepiride 2 mg 06/06/18 07:00 06/08/18 06:42 Amaryl - PO 2 mg DAILY@0700 [facility] Administration Insulin Aspart 1 vial 06/06/18 07:00 06/08/18 06:42 Novolog Vial Sliding Scale - SQ 2 units ACHS [facility] Administration Protocol Meclizine HCl 12.5 mg 06/06/18 16:25 06/07/18 21:29 Antivert - PO 12.5 mg Q6H PRN Administration VERTIGO Pantoprazole Sodium 40 mg 06/06/18 10:00 06/07/18 21:29 Protonix - PO 40 mg BID [facility] Administration Sucralfate 1 gm 06/06/18 10:00 06/07/18 21:29 Carafate Oral Suspension - PO 1 gm QID [facility] Administration S1 S2 RRR Lungs clear Abd- epigastric tenderness on deep palpation no edema PLAN continue with PPI, carafate dc to NH - stable for dc Problem List - Problems (1) GI bleed Code(s): K92.2 - GASTROINTESTINAL HEMORRHAGE, UNSPECIFIED Qualifiers: GI bleed type/associated pathology: unspecified gastrointestinal hemorrhage type Qualified Code(s): K92.2 - Gastrointestinal hemorrhage, unspecified (2) Hypotension Code(s): I95.9 - HYPOTENSION, UNSPECIFIED Qualifiers: Hypotension type: unspecified hypotension type Qualified Code(s): I95.9 - Hypotension, unspecified (3) Diabetes mellitus Code(s): E11.9 - TYPE 2 DIABETES MELLITUS WITHOUT COMPLICATIONS Qualifiers: Diabetes mellitus type: type 2 Diabetes mellitus ocean transportation intermediary insulin use: without ocean transportation intermediary use (4) HTN (hypertension) Code(s): I10 - ESSENTIAL (PRIMARY) HYPERTENSION Qualifiers: Hypertension type: essential hypertension Qualified Code(s): I10 - Essential (primary) hypertension (5) Hyperlipidemia Code(s): E78.5 - HYPERLIPIDEMIA, UNSPECIFIED (6) Acute blood loss anemia Code(s): D62 - ACUTE POSTHEMORRHAGIC ANEMIA
[2018-06-08 11:15] VITALS: BP 132/70; PULSE 99
== END 2018-06-08 12:29 | DRG 378 ==
LOC: JER 11:43 → JERBED 14:27 → JICU 17:47 → J5S 06-06 04:01
PROVIDERS: ADMIT Internal Medicine; ATTEND Internal Medicine
PROC: 30233N1 Transfusion of Nonautologous Red Blood Cells into Peripheral Vein, Percutaneous Approach (ICD-10-PCS; 2018-06-01)
PROC: 3E0G8GC Introduction of Other Therapeutic Substance into Upper GI, Via Natural or Artificial Opening Endoscopic (ICD-10-PCS; 2018-06-02)
PROC: 0DB68ZX Excision of Stomach, Via Natural or Artificial Opening Endoscopic, Diagnostic (ICD-10-PCS; 2018-06-02)
PROC: 0W3P8ZZ Control Bleeding in Gastrointestinal Tract, Via Natural or Artificial Opening Endoscopic (ICD-10-PCS; principal; 2018-06-02 12:00)
DX: K26.4 Chronic or unspecified duodenal ulcer with hemorrhage (principal); N17.9 Acute kidney failure, unspecified; I24.8 Other forms of acute ischemic heart disease; M62.82 Rhabdomyolysis; D62 Acute posthemorrhagic anemia; I10 Essential (primary) hypertension; E78.5 Hyperlipidemia, unspecified; I48.91 Unspecified atrial fibrillation; F03.90 Unspecified dementia, unspecified severity, without behavioral disturbance, psychotic disturbance, mood disturbance, and anxiety; E11.65 Type 2 diabetes mellitus with hyperglycemia; Z79.4 Long term (current) use of insulin; I95.9 Hypotension, unspecified; Z96.653 Presence of artificial knee joint, bilateral; R29.6 Repeated falls; I45.10 Unspecified right bundle-branch block; D72.829 Elevated white blood cell count, unspecified; K57.90 Diverticulosis of intestine, part unspecified, without perforation or abscess without bleeding; D53.9 Nutritional anemia, unspecified; Z87.891 Personal history of nicotine dependence; K20.8 Other esophagitis; E11.40 Type 2 diabetes mellitus with diabetic neuropathy, unspecified; I34.0 Nonrheumatic mitral (valve) insufficiency; R42 Dizziness and giddiness
CPT/HCPCS: 36415; 36430; 70450-TC; 71045-TC-FY; 74176-TC; 80048; 80053; 81003; 82009; 82272; 82728; 82803; 82962; 83036; 83540; 83550; 83605; 83690; 83735; 84100; 84484; 85025; 85027; 85610; 85730; 86850; 86900; 86901; 86922; 87040; 87086; 88305-TC; 93005; 93010; 93306-TC; 97116-GP; 97161-GP; 99281-25; J0131; P9038; P9058